=== PATIENT | female | born 1935 | race African-American/Black ===

== ENCOUNTER → 2019-04-20 | Outpatient (CLI) | payer MEDICARE, OTHER ==
--- NOTE | 2019-04-20 14:20 | US ---
EXAMINATION TYPE: US thyroid st tissue head/neck DATE OF EXAM: 04/20/2019 COMPARISON: NONE CLINICAL HISTORY: E04.1 THYROID NODULES. Known nodules, no prior here. GLAND SIZE: Right Lobe: 5.2 x 2.1 x 1.6 cm Overall Parenchyma: heterogenous Left Lobe: 5.6 x 2.8 x 2.3 cm Overall Parenchyma: heterogeneous Isthmus Thickness: 0.3 cm NODULES RIGHT: # of nodules measured on right: 1. 0.6 X 0.4 x 0.6 cm hypoechoic cystic nodule at the upper pole with well-defined margins. This n odule is wider than tall and shows no intranodular vascularity. Prior size: no prior here 2. 2.2 X 1.5 x 1.4 cm isoechoic solid nodule at the lower pole with well-defined margins. This nodu le is and shows intranodular vascularity. Prior size: no prior LEFT: # of nodules measured on left: 1. 3.4 X 1.2 x 2.1 cm isoechoic solid nodule at the mid pole with well-defined margins; present wit h microcalcifications. This nodule is wider than tall and shows intranodular vascularity. Prior size: no prior here 2. 3.4 X 2.4 x 2.5 cm echogenic solid nodule at the lower pole with poorly defined margins. This no dule is taller than wide and shows intranodular vascularity. Prior size: no prior here ISTHMUS: # of nodules measured in the isthmus: 0 Bilateral neck scanned, no evidence of lymphadenopathy. Patient states imaging and biopsies done prior at another facility. IMPRESSION: There are bilateral thyroid nodules for which fine-needle aspiration would be recommended if not perf ormed. Correlate on outside imaging for which thyroid nodules have been biopsied. Both left thyroid n odules and the larger right thyroid nodules criteria for fine-needle aspiration.
== END | disposition home or self-care (01) ==
LOC: RADUSWWP 13:06
PROVIDERS: ATTEND Otolaryngology
DX: E04.2 Nontoxic multinodular goiter (principal)
CPT/HCPCS: 76536

== ENCOUNTER → 2019-06-25 | Outpatient (CLI) | payer MEDICARE, OTHER ==
--- NOTE | 2019-06-28 13:20 | MM ---
Reason for exam: screening (asymptomatic). Last mammogram was performed 1 year ago. History: Patient is postmenopausal. Family history of breast cancer in paternal aunt and breast cancer in cousin. Physical Findings: A clinical breast exam by your physician is recommended on an annual basis and results should be correlated with mammographic findings. MG 3D Screening Mammo W/Cad Bilateral CC and MLO view(s) were taken. Prior study comparison: June 11, 2018, mammogram, performed at [facility]. May 29, 2018, mammogram, performed at [facility]. There are scattered fibroglandular densities. There is chronic nodularity in the left breast. New nodularity central posterior left CC view. ASSESSMENT: Incomplete: need additional imaging evaluation, BI-RAD 0 RECOMMENDATION: Special view mammogram of the left breast. If lesion persists on supplemental views, image directed ultrasound is recommended. [facility] will attempt to contact patient to return for supplemental views and ultrasound if indicated.
== END | disposition home or self-care (01) ==
LOC: RADMAMWWP 13:25
PROVIDERS: ATTEND Internal Medicine Geriatric Medicine
DX: Z12.31 Encounter for screening mammogram for malignant neoplasm of breast (principal)
CPT/HCPCS: 77063; 77067

== ENCOUNTER → 2019-07-08 | Outpatient (CLI) | payer MEDICARE, OTHER ==
--- NOTE | 2019-07-08 12:09 | MM ---
Reason for exam: additional evaluation requested from abnormal screening. Last mammogram was performed less than 1 month ago. History: Patient is postmenopausal. Family history of breast cancer in paternal aunt and breast cancer in cousin at age 40. Physical Findings: Nurse did not find any significant physical abnormalities on exam. MG 3D Work Up W/Cad LT Spot compression CC and LM view(s) were taken of the left breast. Prior study comparison: June 25, 2019, bilateral MG 3d screening mammo w/cad. June 11, 2018, mammogram, performed at [facility]. There are scattered fibroglandular densities. There is a 2 x 5mm mass 7cm from nipple in the central inferior left breast that persists on additional views. These results were verbally communicated with the patient and result sheet given to the patient on 07/08/19. ASSESSMENT: Incomplete: need additional imaging evaluation, BI-RAD 0 RECOMMENDATION: Ultrasound of the left breast. (inferior)
--- NOTE | 2019-07-08 12:11 | USB ---
Reason for exam: additional evaluation requested from abnormal screening. History: Patient is postmenopausal. Family history of breast cancer in paternal aunt and breast cancer in cousin at age 40. US Breast Workup Limited LT Left limited breast ultrasound including focal area of concern, retroareolar and axilla demonstrates a 0.3 x 0.5 x 0.3cm cystic lesion at 6 o'clock, corresponds to mammographic finding. 6 month follow up recommended as this is a new finding with no definitive increase through transmission. These results were verbally communicated with the patient and result sheet given to the patient on 07/08/19. ASSESSMENT: Probably benign, BI-RAD 3 RECOMMENDATION: Ultrasound of the left breast in 6 months.
== END | disposition home or self-care (01) ==
LOC: RADMAMWWP 10:12
PROVIDERS: ATTEND Internal Medicine Geriatric Medicine
DX: R92.8 Other abnormal and inconclusive findings on diagnostic imaging of breast (principal)
CPT/HCPCS: 77065; 76642; G0279; 77061

== ENCOUNTER → 2020-12-06 | Outpatient (CLI) | payer MEDICARE, OTHER ==
--- NOTE | 2020-12-07 07:03 | XR ---
EXAMINATION TYPE: XR shoulder complete LT DATE OF EXAM: 12/06/2020 CLINICAL HISTORY: pain COMPARISON: NONE TECHNIQUE: Three views of the left shoulder are obtained. FINDINGS: There is no acute fracture/dislocation evident. The acromioclavicular and glenohumeral kirsty int spaces appear within normal limits. The visualized ribs are intact and unremarkable. IMPRESSION: 1. There is no acute fracture or dislocation. ICD 10 NO FRACTURE, INITIAL EVALUATION
--- NOTE | 2020-12-07 07:04 | XR ---
EXAMINATION TYPE: XR cervical spine comp DATE OF EXAM: 12/06/2020 CLINICAL HISTORY: pain COMPARISON: NONE TECHNIQUE: Frontal, lateral, oblique, swimmers, and open mouth view of the cervical spine are obtaine d. FINDINGS: The cervical spine is visualized in its entirety from C1 thru the top of T1 level. It is s atisfactory in alignment without evidence of acute fracture or dislocation. The pre-vertebral soft t issue appears within normal limits. Mild degenerative disease and spondylosis. The C1-C2 articulation is unremarkable on the open mouth view. The oblique images are within normal limits. IMPRESSION: No acute fracture or dislocation is seen in the cervical spine.ICD 10 NO FRACTURE, INITI AL EVALUATION
== END | disposition home or self-care (01) ==
LOC: RADXRMAIN 16:52
PROVIDERS: ATTEND Nurse Practitioner Family
DX: M25.512 Pain in left shoulder (principal)
CPT/HCPCS: 72050

== ENCOUNTER 2020-12-23 18:46 | Observation (INO) | payer MEDICARE, OTHER ==
--- NOTE | 2020-12-23 19:33 | ED ---
Chest Pain HPI - General Chief Complaint: Chest Pain Stated Complaint: ELLI/chest pain Time Seen by Provider: 12/23/20 19:08 Source: patient, family Mode of arrival: wheelchair Limitations: no limitations - History of Present Illness Initial Comments: Patient is an 85-year-old female with history of CVA, hypertension, COPD, presenting to emergency Department with complaints of intermittent chest pain for the last 2-3 days. Patient states that last night it did wake her up from her sleep, lasted about a minute and then she was able to go back to sleep. She is also having a little bit of shortness of breath. She does have history of COPD, burst 2 L only at nighttime. She also has a nebulizer that she uses daily. Eyes any nausea or vomiting, no abdominal pain. She denies any fever or chills. Patient's daughter is here with her now and states she has been very anxious about Covid. She denies any heart disease. She states currently she on ly has a very small dull ache across her chest. She denies any other symptoms at this time. Upon arrival to the ER, her vital signs are stable. - Related Data Allergies Allergy/AdvReac Type Severity Reaction Status Date / Time Influenza Virus Vaccines Allergy Unknown Verified 12/23/20 18:58 Iodinated Contrast Media Allergy Unknown Verified 12/23/20 18:58 Review of Systems ROS Statement: Those systems with pertinent positive or pertinent negative responses have been documented in the HPI. ROS Other: All systems not noted in ROS Statement are negative. EKG Findings - EKG Comments: EKG Findings:: Normal sinus rhythm, inferior infarct, age undetermined, no signs of acute ischemia at this time. Ventricular rate 79, WA interval 174, QTC 442. Past Medical History Past Medical History: CVA/TIA, Hypertension History of Any Multi-Drug Resistant Organisms: None Reported Past Surgical History: Back Surgery, Section, Hysterectomy, Orthopedic Surgery Additional Past Surgical History / Comment(s): pituitary tumor. Past Psychological History: No Psychological Hx Reported Smoking Status: Former smoker Past Alcohol Use History: None Reported Past Drug Use History: None Reported General Exam - General Exam Comments Initial Comments: GENERAL: Patient is well-developed and well-nourished. Patient is nontoxic and in no acute distress. HEAD: Atraumatic, normocephalic. EYES: Pupils equal round and reactive to light, extraocular movements intact, sclera anicteric, conjunctiva are normal. Eyelids were unremarkable. ENT: TMs normal, nares patent, oropharynx clear without exudates. Moist mucous membranes. NECK: Normal range of motion, supple without lymphadenopathy or JVD. LUNGS: Unlabored respirations. Breath sounds clear to auscultation bilaterally and equal. No wheezes rales or rhonchi. HEART: Regular rate and rhythm without murmurs, rubs or gallops. ABDOMEN: Soft, nontender, normoactive bowel sounds. No guarding, no rebound. No masses appreciated. : Deferred MUSCULOSKELETAL: Normal extremities with adequate strength and normal range of motion, no pitting or edema. No clubbing or cyanosis. NEUROLOGICAL: Patient is alert and oriented x 3. Motor and sensory are also intact. Cranial nerves II through XII grossly intact. Symmetrical smile. Normal speech, normal gait. PSYCH: Normal mood, normal affect. SKIN: Warm, Dry, normal turgor, no rashes or lesions noted. Limitations: no limitations Course Vital Signs 12/23/20 12/23/20 12/23/20 18:50 21:55 23:37 Temperature 98.2 F 98.2 F Pulse Rate 81 86 Pulse Rate [ 78 Right] Respiratory 18 20 20 Rate Blood Pressure 136/73 136/69 Blood Pressure 127/68 [Right Arm] O2 Sat by Pulse 96 100 96 Oximetry Chest Pain [facility] Patient is a 85-year-old female with history hypertension, CVA, COPD, presenting with chest pains been intermittent for the last 2 days. I did wake her up from her sleep last night. Currently it is a dull ache, some mild shortness of breath. No other symptoms. Her exam is unremarkable. Her vital signs are stable upon arrival. EKG shows no acute ischemia. Lab work is stable, troponin is negative, BNP is 282. Rapid Covid is not detected. Chest x-ray shows no acute process. Given patient's complaints of chest pains, patient will be admitted for serial troponins, cardiac consult. Patient is currently on a Eliquis secondary to previous stroke. Patient accepted by Dr. Covarrubias. Case discussed with Dr. Hay. Disposition Clinical Impression: Chest pain, Dyspnea Disposition: ADMITTED IP TO THIS HOSP Condition: Stable Decision Date: 12/23/20 Decision Time: 22:16
[2020-12-23 20:39] LABS: Basophils # (A) 0.1 k/uL (0-0.2); Basophils % (A) 1 %; Eosinophils # (A) 0.5 k/uL (0-0.7); Eosinophils % (A) 5 %; HCT 41.2 % (34.0-46.0); HGB 13.2 gm/dL (11.4-16.0); Lymphocytes % (A) 20 %; MCH 27.5 pg (25.0-35.0); Monocytes # (A) 0.5 k/uL (0-1.0); Monocytes % (A) 5 %; Neutrophils # (A) 6.5 k/uL (1.3-7.7); Neutrophils % (A) 68 %; Platelet Count 328 k/uL (150-450); RBC 4.79 m/uL (3.80-5.40); RDW 14.4 % (11.5-15.5); WBC 9.6 k/uL (3.8-10.6)
[2020-12-23 20:51] LABS: Albumin 4.1 g/dL (3.5-5.0); C Reactive Protein 12.2 mg/L (<10.0); Calcium 9.2 mg/dL (8.4-10.2); Magnesium 1.9 mg/dL (1.6-2.3); Total Bilirubin 0.4 mg/dL (0.2-1.3); Total Protein 7.7 g/dL (6.3-8.2)
[2020-12-23 20:55] LABS: Partial Thromboplastin Time 25.1 sec (22.0-30.0); Prothrombin Time 10.6 sec (9.0-12.0)
--- NOTE | 2020-12-23 21:13 | XR ---
EXAMINATION TYPE: XR chest 2V DATE OF EXAM: 12/23/2020 COMPARISON: NONE HISTORY: Chest pain TECHNIQUE: 2 views FINDINGS: Heart and mediastinum are normal. Lungs are clear of infiltrate. There is no pleural effusi on. There are no hilar masses. There are chest leads. IMPRESSION: No active cardiopulmonary disease.
[2020-12-23] MEDS ORDERED: NITROGLYCERIN SL TABS 0.4 MG TAB SUBLINGUAL PRN (22:14)
[2020-12-24 06:32] LABS: Cholesterol 124 mg/dL (<200); HDL Cholesterol 53 mg/dL (40-60); LDL Cholesterol,Calculated 57 mg/dL (0-99); Triglycerides 68 mg/dL (<150)
[2020-12-24] MEDS ORDERED: ASPIRIN 325 MG TAB PO SCH (09:00)
--- NOTE | 2020-12-24 10:28 | P.CRDCN ---
History of Present Illness Consult date: 12/24/20 Requesting physician: Charlie Covarruibas Reason for Consult (text): chest pain Chief complaint: chest pain History of present illness: This is a pleasant 85-year-old -[place] female with a past medical history of hypertension, hyperlipidemia, CVA, and likely history of atrial fibrillation, anticoagulated on Eliquis. She follows with Dr. Leal in the office and last saw him over a year ago. Presented to the emergency department with complaints of chest discomfort as occurring along her bra line and has been occurring intermittently and can last up to a couple hours at a time sometimes it is improved with belching. She denies any clear-cut aggravating factors and no associated symptoms. She does have some dyspnea on exertion that may be somewhat worse compared to her baseline. Chest x-ray on admission showed no active cardiopulmonary disease. EKG on admission showed sinus rhythm with evidence of possible prior inferior infarct that is not reflected on EKG done this morning. Laboratory values show normal CBC, sodium 142, potassium 4.0, BUN 18 and creatinine 1.28, alkaline phosphatase 151, NT proBNP 282 and troponin less than 0.0123. Lipids are well controlled. She is afebrile and vital signs are stable. Current home medications include clonazepam, carvedilol, spir onolactone, Rivastigmine, Protonix, Singulair, Antivert, lactulose, Advair, Lipitor, aspirin 81 mg daily, albuterol and Eliquis 2.5 mg by mouth twice a day. Upon examination patient is resting in bed. She complains of significant low back pain. She does have a history of back surgery several years ago and feels that her chronic issues were exacerbated by the bed in the emergency department. She is very hard of hearing. She denies any current complaints of chest discomfort. At that time her breathing is stable. She has no complaints of orthopnea or PND, edema. She has no current complaints of dizziness or lightheadedness, palpitations. Past Medical History Past Medical History: Asthma, COPD, CVA/TIA, Diabetes Mellitus, GERD/Reflux, Hypertension Additional Past Medical History / Comment(s): glaucoma History of Any Multi-Drug Resistant Organisms: None Reported Past Surgical History: Back Surgery, Section, Hysterectomy, Orthopedic Surgery Additional Past Surgical History / Comment(s): pituitary tumor removed, lumbar laminectomy Past Anesthesia/Blood Transfusion Reactions: No Reported Reaction Past Psychological History: No Psychological Hx Reported Smoking Status: Former smoker Past Alcohol Use History: None Reported Past Drug Use History: None Reported - Past Family History Father History Unknown: Yes Mother History Unknown: Yes Medications and Allergies Home Medications Medication Instructions Recorded Confirmed Type Albuterol Sulfate [Proair Hfa] 2 puff INHALATION RT-QID PRN 12/23/20 12/24/20 History Apixaban [Eliquis] 2.5 mg PO BID 12/23/20 12/24/20 History Aspirin [Adult Low Dose Aspirin EC] 1 tab PO DAILY 12/23/20 12/24/20 History Atorvastatin [Lipitor] 20 mg PO HS 12/23/20 12/24/20 History Brimonidine Tartrate [Alphagan P 1 drops BOTH EYES Q8H 12/23/20 12/24/20 History 0.1% Ophth Soln] Dorzolamide-Timol 2.23%/0.68% 1 drop RIGHT EYE BID 12/23/20 12/24/20 History [Cosopt] Fluticasone/Salmeterol [Advair 1 puff INHALATION RT-BID 12/23/20 12/24/20 History 500-50 Diskus] Lactulose 10 gm PO DAILY PRN 12/23/20 12/24/20 History Latanoprost Ophth [Xalatan 0.005%] 1 drops BOTH EYES HS 12/23/20 12/24/20 History Meclizine [Antivert] 25 mg PO TID PRN 12/23/20 12/24/20 History Montelukast [Singulair] 10 mg PO HS 12/23/20 12/24/20 History Pantoprazole [Protonix] 1 tab PO DAILY 12/23/20 12/24/20 History carvediloL [Coreg] 3.125 mg PO BID 12/23/20 12/24/20 History Rivastigmine 3mg 3 mg PO BID 12/24/20 12/24/20 History Spironolactone [Aldactone] 25 mg PO DAILY 12/24/20 12/24/20 History clonazePAM [KlonoPIN] 0.5 mg PO BID PRN 12/24/20 12/24/20 History Allergies Allergy/AdvReac Type Severity Reaction Status Date / Time Influenza Virus Vaccines Allergy Unknown Verified 12/24/20 08:50 Iodinated Contrast Media Allergy Unknown Verified 12/24/20 08:50 Physical Exam Vitals: Vital Signs Temp Pulse Pulse Resp BP BP Pulse Ox 12/24/20 08:07 96 12/24/20 07:00 97.6 F 78 17 126/86 96 12/24/20 05:19 98.1 F 79 20 127/70 96 12/23/20 23:37 98.2 F 78 20 127/68 96 12/23/20 21:55 86 20 136/69 100 12/23/20 18:50 98.2 F 81 18 136/73 96 Intake and Output 12/23/20 12/24/20 12/24/20 21:59 06:59 14:59 Intake Total 300 Balance 300 Intake: Oral 300 Other: Voiding Method # Voids Weight PHYSICAL EXAMINATION: This is a 85-year-old female in mild to moderate distress at the time of my examination secondary to low back pain. VITAL SIGNS: Blood pressure 126/86, heart rate 78, respirations 20, temp 97.6F. Patient is 96 % on room air. HEENT: Head is atraumatic, normocephalic. Pupils are equal, round. Sclerae anicteric. Conjunctivae are clear. Mucous membranes of the mouth are moist. Neck is supple. There is no elevated jugular venous pressure. No carotid bruit is heard. CHEST EXAMINATION: Clear to auscultation bilaterally. No wheezes rales or rhonchi. Respirations even and nonlabored. HEART EXAMINATION: Heart regular, positive S1 and S2. No S3. No S4. No clicks, rubs or murmurs. ABDOMEN: Soft, obese, nontender. Bowel sounds are heard. No organomegaly noted. EXTREMITIES: 2+ peripheral pulses with no evidence of peripheral edema and no calf tenderness noted. NEUROLOGIC EXAMINATION: Patient is awake, alert and oriented x3. Results 12/23/20 20:29 12/23/20 20:29 Cardiac Enzymes 12/23/20 12/23/20 12/23/20 Range/Units 20:29 20:29 22:51 AST 25 (14-36) U/L Troponin I <0.012 <0.012 (0.000-0.034) ng/mL 12/24/20 Range/Units 03:00 AST (14-36) U/L Troponin I <0.012 (0.000-0.034) ng/mL Coagulation 12/23/20 Range/Units 20:29 PT 10.6 (9.0-12.0) sec APTT 25.1 (22.0-30.0) sec Lipids 12/23/20 Range/Units 20:29 Triglycerides 68 (<150) mg/dL Cholesterol 124 (<200) mg/dL HDL Cholesterol 53 (40-60) mg/dL CBC 12/23/20 Range/Units 20:29 WBC 9.6 (3.8-10.6) k/uL RBC 4.79 (3.80-5.40) m/uL Hgb 13.2 (11.4-16.0) gm/dL Hct 41.2 (34.0-46.0) % Plt Count 328 (150-450) k/uL Comprehensive Metabolic Panel 12/23/20 Range/Units 20:29 Sodium 142 (137-145) mmol/L Potassium 4.0 (3.5-5.1) mmol/L Chloride 107 (98-107) mmol/L Carbon Dioxide 24 (22-30) mmol/L BUN 18 H (7-17) mg/dL Creatinine 1.28 H (0.52-1.04) mg/dL Glucose 96 (74-99) mg/dL Calcium 9.2 (8.4-10.2) mg/dL AST 25 (14-36) U/L ALT 23 (4-34) U/L Alkaline Phosphatase 151 H (38-126) U/L Total Protein 7.7 (6.3-8.2) g/dL Albumin 4.1 (3.5-5.0) g/dL Current Medications Generic Name Dose Route Start Last Admin Trade Name Freq PRN Reason Stop Dose Admin Aspirin 325 mg 12/24/20 09:00 12/24/20 07:48 Aspirin 325 Mg Tab PO 325 mg DAILY PAM Administration Nitroglycerin 0.4 mg 12/23/20 22:14 Nitroglycerin Sl Tabs 0.4 Mg Tab SUBLINGUAL Q5M PRN Chest Pain Intake and Output 12/23/20 12/24/20 12/24/20 21:59 06:59 14:59 Intake Total 300 Balance 300 Intake: Oral 300 Other: Voiding Method # Voids Weight 12/23/20 20:29 12/23/20 20:29 Assessment and Plan Assessment: #1 symptoms of chest discomfort, and acute coronary event has been ruled out, symptoms are atypical, troponins negative 3 #2 hypertension #3 hyperlipidemia #4 paroxysmal atrial fibrillation #5 history of CVA #6 low back pain Plan: From secure software assessor perspective we will keep the patient overnight and obtain 2-D echo with Doppler study to assess cardiac structure and function. If there are no significant abnormalities on the echocardiogram we will likely weight and complete stress test as an outpatient due to patient's significant low back p ain. We will continue to follow the patient provide further recommendations accordingly. [employer] note has been reviewed, I agree with a documented findings and plan of care. Patient was seen and examined.
[2020-12-24] MEDS ORDERED: ALBUTEROL NEBULIZED 2.5 MG/3 ML INHALATION PRN (10:59)
[2020-12-24] MEDS ORDERED: MECLIZINE 25 MG TAB PO PRN (10:59)
[2020-12-24] MEDS ORDERED: clonazePAM 0.5 MG TAB PO PRN (10:59)
[2020-12-24] MEDS ORDERED: LACTULOSE 20 GM/30 ML CUP PO PRN (10:59)
[2020-12-24] MEDS: BRIMONIDINE TARTRATE 0.2% DROPS 5 ML BTL BOTH EYES SCH ×2 (13:59→22:51)
[2020-12-24] MEDS ORDERED: ACETAMINOPHEN TAB 325 MG TAB PO PRN (17:19)
--- NOTE | 2020-12-24 17:30 | P.HPIM ---
History of Present Illness H&P Date: 12/24/20 86 years old -[place] female with past medical history of asthma, COPD, history of CVA, diabetes, GERD, hypertension, history of P2 treated Mel, lumbar laminectomy, history of atrial fibrillation on the left basal sees Dr. Leal and Dr. Salgado presents in with chest discomfort involving the lower part of her chest bilateral for the past few days with worsening of symptoms since yesterday. Pain is associated with belching a lot of acid reflux. Patient also endorses some shortness of breath on exertion which is worse compared to her baseline. Also complains of low back pain and had history of back surgery several years ago but got worse since she is come to the ER. Chest x-ray was n egative for any acute etiology EKG on admission did show sinus rhythm with a possible prior inferior and infarct. Vitals this morning suggests a temp of 98 pulse 80 respiratory rate 18 blood pressure 120/77 saturating at 97% on room air troponins and she has been negative patient's LDL is 57 BUN 18 creatinine 1.28. Alkaline phosphatase 151 proBNP 282. Review of Systems Constitutional: Denies chills, Denies fever, endorses RG, Denies poor appetite, Denies weakness, Denies weight loss Eyes: denies decreased vision, denies diplopia, denies discharge, denies pain Ears: Endorses significant decreased hearing Ears, nose, mouth and throat: Denies dental pain, Denies headache, Denies nasal discharge, Denies nose pain Cardiovascular: Endorses chest pain, endorses decreased exercise tolerance, endorses edema, Denies high blood pressure, Denies irregular heart beat, Denies palpitations, Denies paroxysmal nocturnal dyspnea, Denies rapid heart beat, endorses shortness of breath Respiratory: Denies congestion, Denies cough, Denies cough with sputum, Denies dyspnea, Denies home oxygen, Denies wheezing Gastrointestinal: Denies abdominal pain, Denies change in bowel habits, Denies coffee ground emesis, Denies early satiety, Denies excessive gas, Denies heartburn, Denies hematemesis, Denies hematochezia, Denies loss of appetite, Denies nausea, Denies vomiting Genitourinary: Denies dysuria, Denies flank pain, Denies kidney stones, Denies menorrhagia, Denies urgency, Denies urinary frequency Musculoskeletal: Denies gait dysfunction, Denies limitation of motion, Denies morning stiffness, Denies muscle cramps endorses low back pain Integumentary: Denies rash, Denies wounds, Denies brittle nails, Denies change in hair/nails, Denies darkening of skin Neurological: Denies balance difficulties, Denies change in speech, Denies double vision, Denies gait dysfunction, Denies loss of vision, Denies motor disturbance, Denies numbness, Denies paralysis, Denies paresthesias, Denies seizures Psychiatric: Denies anxiety, Denies depression Endocrine: Denies excessive sweating, Denies excessive thirst, Denies high blood sugars, Denies palpitations Hematologic/Lymphatic: Denies easy bruising, Denies lymphadenopathy Past Medical History Past Medical History: Asthma, COPD, CVA/TIA, Diabetes Mellitus, GERD/Reflux, Hypertension Additional Past Medical History / Comment(s): glaucoma History of Any Multi-Drug Resistant Organisms: None Reported Past Surgical History: Back Surgery, Section, Hysterectomy, Orthopedic Surgery Additional Past Surgical History / Comment(s): pituitary tumor removed, lumbar laminectomy Past Anesthesia/Blood Transfusion Reactions: No Reported Reaction Past Psychological History: No Psychological Hx Reported Smoking Status: Former smoker Past Alcohol Use History: None Reported Past Drug Use History: None Reported - Past Family History Father History Unknown: Yes Mother History Unknown: Yes Medications and Allergies Home Medications Medication Instructions Recorded Confirmed Type Albuterol Sulfate [Proair Hfa] 2 puff INHALATION RT-QID PRN 12/23/20 12/24/20 History Apixaban [Eliquis] 2.5 mg PO BID 12/23/20 12/24/20 History Aspirin [Adult Low Dose Aspirin EC] 1 tab PO DAILY 12/23/20 12/24/20 History Atorvastatin [Lipitor] 20 mg PO HS 12/23/20 12/24/20 History Brimonidine Tartrate [Alphagan P 1 drops BOTH EYES Q8H 12/23/20 12/24/20 History 0.1% Ophth Soln] Dorzolamide-Timol 2.23%/0.68% 1 drop RIGHT EYE BID 12/23/20 12/24/20 History [Cosopt] Fluticasone/Salmeterol [Advair 1 puff INHALATION RT-BID 12/23/20 12/24/20 Histor y 500-50 Diskus] Lactulose 10 gm PO DAILY PRN 12/23/20 12/24/20 History Latanoprost Ophth [Xalatan 0.005%] 1 drops BOTH EYES HS 12/23/20 12/24/20 History Meclizine [Antivert] 25 mg PO TID PRN 12/23/20 12/24/20 History Montelukast [Singulair] 10 mg PO HS 12/23/20 12/24/20 History Pantoprazole [Protonix] 1 tab PO DAILY 12/23/20 12/24/20 History carvediloL [Coreg] 3.125 mg PO BID 12/23/20 12/24/20 History Rivastigmine 3mg 3 mg PO BID 12/24/20 12/24/20 History Spironolactone [Aldactone] 25 mg PO DAILY 12/24/20 12/24/20 History clonazePAM [KlonoPIN] 0.5 mg PO BID PRN 12/24/20 12/24/20 History Allergies Allergy/AdvReac Type Severity Reaction Status Date / Time Influenza Virus Vaccines Allergy Unknown Verified 12/24/20 08:50 Iodinated Contrast Media Allergy Unknown Verified 12/24/20 08:50 Physical Exam Vitals: Vital Signs Temp Pulse Pulse Resp BP BP Pulse Ox 12/24/20 08:07 96 12/24/20 08:00 16 12/24/20 07:00 97.6 F 78 17 126/86 96 12/24/20 05:19 98.1 F 79 20 127/70 96 12/23/20 23:37 98.2 F 78 20 127/68 96 12/23/20 21:55 86 20 136/69 100 12/23/20 18:50 98.2 F 81 18 136/73 96 Intake and Output 12/23/20 12/24/20 12/24/20 21:59 06:59 14:59 Intake Total 500 Balance 500 Intake: Oral 500 Other: Voiding Method # Voids 1 Weight - Constitutional General appearance: 85-year-old cooperative, mild acute distress due to low back pain, obese - EENT Eyes: anicteric sclerae, PERRLA, normal appearance ENT: hearing grossly normal - Neck Neck: no lymphadenopathy, normal ROM, no other, no rigidity, no stridor, no thyromegaly no JVP - Respiratory Respiratory: bilateral: CTA, negative: diminished, dullness, rales, rhonchi - Cardiovascular Rhythm: regular Heart sounds: normal: S1, S2 Abnormal Heart Sounds: no systolic murmur, no diastolic murmur, no rub, no S3 Gallop, no S4 Gallop, no click, no other - Gastrointestinal General gastrointestinal: normal bowel sounds, soft - Integumentary Integumentary: no rash - Neurologic Neurologic: CNII-XII intact - Musculoskeletal Musculoskeletal: gait normal, strength equal bilaterally - Psychiatric Psychiatric: A&O x's 3, appropriate affect Results CBC & Chem 7: 12/23/20 20:29 12/23/20 20:29 Labs: Abnormal Lab Results - Last 24 Hours (Table) 12/23/20 Range/Units 20:29 BUN 18 H (7-17) mg/dL Creatinine 1.28 H (0.52-1.04) mg/dL Alkaline Phosphatase 151 H (38-126) U/L C-Reactive Protein 12.2 H (<10.0) mg/L Thrombosis Risk Factor Assmnt - DVT/VTE Prophylaxis DVT/VTE Prophylaxis: Pharmacologic Prophylaxis ordered - Choose All That Apply Any of the Below Risk Factors Present?: Yes Each Factor Represents 1 point: Abnormal pulmonary function (COPD), Obesity (BMI >25) Other Risk Factors: Yes Each Risk Factor Represents 3 Points: Age 75 years or older Other congenital or acquired thrombophilia - If yes, enter type in comment: No Thrombosis Risk Factor Assessment Total Risk Factor Score: 5 Thrombosis Risk Factor Assessment Level: High Risk Assessment and Plan Plan: #1 acute atypical chest pain. His is ruled out troponin 3 negative. Echocardiogram to be obtained in the morning with possible stress test as outpatient. Pantoprazole 4 0 po twice a day as patient chest pain likely appears to be GI in origin #2 acute shortness of breath on exertion. Chest x-ray negative for acute etiology. ProBNP normal. Echo ordered #3 history of CVA continue patient on aspirin 81 mg by mouth daily continue Lipitor 20 mg daily at bedtime #4 history of paroxysmal atrial fibrillation on eliquis and Coreg 3.125 twice a day #5 type 2 diabetes continue insulin sliding scale diet controlled #6 history of dementia continue donepezil 10 mg daily #7 history of asthma/COPD continue Symbicort twice a day continue DuoNeb as needed for shortness of breath #8 hypertension continue spiderlike prolactin 25 mg daily #9 history of glaucoma continue dorzolamide and brimonidine continue latanoprost eyedrops #10 constipation continue lactulose 10 mg daily as needed #11 acute back pain with history of lumbar laminectomy. Lidocaine patch ordered. Continue on Tylenol as needed for pain #12 DVT prophylaxis with eliquis #13 CODE STATUS full code
[2020-12-24] MEDS: PANTOPRAZOLE 40 MG TABLET PO SCH (17:39)
[2020-12-24] MEDS: carvediloL 3.125 MG TAB PO SCH (17:39)
[2020-12-24] MEDS: LIDOCAINE 5% PATCH TOPICAL SCH (17:57)
[2020-12-24] MEDS ORDERED: ATORVASTATIN 20 MG TAB PO SCH (21:00)
[2020-12-24] MEDS ORDERED: MONTELUKAST 10 MG TAB PO SCH (21:00)
[2020-12-24] MEDS ORDERED: LATANOPROST 0.005% OPHTH DROPS 2.5 ML BTL BOTH EYES SCH (21:00)
[2020-12-24] MEDS: SYMBICORT 160-4.5 MCG INHALER INHALATION SCH (21:20)
[2020-12-24] MEDS: DORZOLAMIDE-TIMOLOL 2.23%/0.68 10ML BTL RIGHT EYE SCH (22:50)
[2020-12-24] MEDS: APIXABAN 2.5 MG TABLET PO SCH (22:50)
[2020-12-25] MEDS: BRIMONIDINE TARTRATE 0.2% DROPS 5 ML BTL BOTH EYES SCH ×2 (05:56→11:16)
[2020-12-25] MEDS ORDERED: PANTOPRAZOLE 40 MG TABLET PO SCH (07:30)
[2020-12-25] MEDS: LIDOCAINE 5% PATCH TOPICAL SCH (08:16)
[2020-12-25] MEDS: PANTOPRAZOLE 40 MG TABLET PO SCH ×2 (08:16→17:05)
[2020-12-25] MEDS: APIXABAN 2.5 MG TABLET PO SCH (08:16)
[2020-12-25] MEDS: carvediloL 3.125 MG TAB PO SCH ×2 (08:16→17:05)
[2020-12-25] MEDS: DORZOLAMIDE-TIMOLOL 2.23%/0.68 10ML BTL RIGHT EYE SCH (08:18)
[2020-12-25] MEDS ORDERED: SPIRONOLACTONE 25 MG TAB PO SCH (09:00)
[2020-12-25] MEDS ORDERED: DONEPEZIL 10 MG TAB PO SCH (09:00)
[2020-12-25] MEDS ORDERED: ASPIRIN 81 MG PO SCH (09:00)
[2020-12-25] MEDS: SYMBICORT 160-4.5 MCG INHALER INHALATION SCH (10:46)
--- NOTE | 2020-12-25 11:13 | ECHOF ---
Referral Reason:chest pain MEASUREMENTS -------- HEIGHT: 165.1 cm WEIGHT: 86.2 kg BP: 145/73 RVIDd: 3.4 cm (< 3.3) IVSd: 1.3 cm (0.6 - 1.1) LVIDd: 3.2 cm (3.9 - 5.3) LVPWd: 1.5 cm (0.6 - 1.1) IVSs: 1.9 cm LVIDs: 2.3 cm LVPWs: 1.6 cm Ao Diam: 2.9 cm (2.0 - 3.7) AV Cusp: 1.9 cm (1.5 - 2.6) LA Diam: 2.8 cm (2.7 - 3.8) MV EXCURSION: 8.677 mm (> 18.000) MV EF SLOPE: 62 mm/s (70 - 150) EPSS: 0.4 cm MV E Brodie: 0.55 m/s MV DecT: 245 ms MV A Brodie: 0.83 m/s MV E/A Ratio: 0.65 RAP: 5.00 mmHg RVSP: 9.86 mmHg FINDINGS -------- This was a technically difficult study with suboptimal views. The left ventricular size is normal. There is mild concentric left ventricular hypertrophy. Overa ll left ventricular systolic function is normal with, an EF between 55 - 60 %. The right ventricle is mildly enlarged. The left atrial size is normal. The right atrial size is normal. Lumason used The aortic valve is trileaflet and appears structurally normal. The mitral valve is normal. There is trace mitral regurgitation. The tricuspid valve appears structurally normal. Trace tricuspid regurgitation present. Right atilio tricular systolic pressure is normal at < 35 mmHg. The pulmonic valve was not well visualized. The aortic root size is normal. IVC Not well visulized. There is no pericardial effusion. CONCLUSIONS -------- 1. The left ventricular size is normal. 2. There is mild concentric left ventricular hypertrophy. 3. Overall left ventricular systolic function is normal with, an EF between 55 - 60 %. 4. The right ventricle is mildly enlarged. 5. There is trace mitral regurgitation. 6. Trace tricuspid regurgitation present. 7. There is no pericardial effusion. HEARING AID TECHNICIAN: Lynda Snow RDCS
--- NOTE | 2020-12-25 11:52 | P.DS ---
Providers Date of admission: 12/23/20 22:48 Expected date of discharge: 12/25/20 Attending physician: Charlie Covarrubias MD Consults: 12/23/20 22:14 Consult Physician Urgent Consulting Provider: [facility] Consult Reason/Comments: chest pain Do you want consulting provider notified?: Yes, Notify in am Primary care physician: Dani Salgado [place] [facility] Course: 86 years old -[place] female with past medical history of asthma, COPD, history of CVA, diabetes, GERD, hypertension, history of P2 treated Mel, lumbar laminectomy, history of atrial fibrillation on the left basal sees Dr. Leal and Dr. Salgado presents in with chest discomfort involving the lower part of her chest bilateral for the past few days with worsening of symptoms since yesterday. Pain is associated with belching a lot of acid reflux. Patient also endorses some shortness of breath on exertion which is worse compared to her baseline. Also complains of low back pain and had history of back surgery several years ago but got worse since she is come to the ER. Chest x-ray was negative for any acute etiology EKG on admission did show sinus rhythm with a possible prior inferior and infarct. Vitals this morning suggests a temp of 98 pulse 80 respiratory rate 18 blood pressure 120/77 saturating at 97% on room air troponins and she has been negative patient's LDL is 57 BUN 18 creatinine 1.28. Alkaline phosphatase 151 proBNP 282. 3: DISCHARGE DIAGNOSES DISCHARGE PLAN Home Patient Condition at Discharge: Good Plan - Discharge Summary New Discharge Prescriptions: Continue Lactulose 10 gm PO DAILY PRN PRN Reason: Constipation Apixaban [Eliquis] 2.5 mg PO BID carvediloL [Coreg] 3.125 mg PO BID Aspirin [Adult Low Dose Aspirin EC] 1 tab PO DAILY Pantoprazole [Protonix] 1 tab PO DAILY Meclizine [Antivert] 25 mg PO TID PRN PRN Reason: Vertigo Fluticasone/Salmeterol [Advair 500-50 Diskus] 1 puff INHALATION RT-BID Albuterol Sulfate [Proair Hfa] 2 puff INHALATION RT-QID PRN PRN Reason: Shortness Of Breath Montelukast [Singulair] 10 mg PO HS Atorvastatin [Lipitor] 20 mg PO HS Brimonidine Tartrate [Alphagan P 0.1% Ophth Soln] 1 drops BOTH EYES Q8H Latanoprost Ophth [Xalatan 0.005%] 1 drops BOTH EYES HS Dorzolamide-Timol 2.23%/0.68% [Cosopt] 1 drop RIGHT EYE BID Spironolactone [Aldactone] 25 mg PO DAILY clonazePAM [KlonoPIN] 0.5 mg PO BID PRN PRN Reason: Anxiety Rivastigmine 3mg 3 mg PO BID Discharge Medication List Albuterol Sulfate [Proair Hfa] 2 puff INHALATION RT-QID PRN 12/23/20 [History] Apixaban [Eliquis] 2.5 mg PO BID 12/23/20 [History] Aspirin [Adult Low Dose Aspirin EC] 1 tab PO DAILY 12/23/20 [History] Atorvastatin [Lipitor] 20 mg PO HS 12/23/20 [History] Brimonidine Tartrate [Alphagan P 0.1% Ophth Soln] 1 drops BOTH EYES Q8H 12/23/20 [History] Dorzolamide-Timol 2.23%/0.68% [Cosopt] 1 drop RIGHT EYE BID 12/23/20 [History] Fluticasone/Salmeterol [Advair 500-50 Diskus] 1 puff INHALATION RT-BID 12/23/20 [History] Lactulose 10 gm PO DAILY PRN 12/23/20 [History] Latanoprost Ophth [Xalatan 0.005%] 1 drops BOTH EYES HS 12/23/20 [History] Meclizine [Antivert] 25 mg PO TID PRN 12/23/20 [History] Montelukast [Singulair] 10 mg PO HS 12/23/20 [History] Pantoprazole [Protonix] 1 tab PO DAILY 12/23/20 [History] carvediloL [Coreg] 3.125 mg PO BID 12/23/20 [History] Rivastigmine 3mg 3 mg PO BID 12/24/20 [History] Spironolactone [Aldactone] 25 mg PO DAILY 12/24/20 [History] clonazePAM [KlonoPIN] 0.5 mg PO BID PRN 12/24/20 [History] Follow up Appointment(s)/Referral(s): Dani Salgado MD [Primary Care Provider] - 1 Week Tumma,Eliud R, MD [STAFF PHYSICIAN] - 1 Week Discharge Disposition: HOME SELF-CARE
--- NOTE | 2020-12-25 12:10 | P.PN ---
Subjective This is a pleasant 85-year-old -[place] female with a past medical history of hypertension, hyperlipidemia, CVA, and likely history of atrial fibrillation, anticoagulated on Eliquis. She follows with Dr. Leal in the office and last saw him over a year ago. Presented to the emergency department with complaints of chest discomfort as occurring along her bra line and has been occurring intermittently and can last up to a couple hours at a time sometimes it is improved with belching. She denies any clear-cut aggravating factors and no associated symptoms. She does have some dyspnea on exertion that may be somewhat worse compared to her baseline. Chest x-ray on admission showed no active cardiopulmonary disease. EKG on admission sinus rhythm with inverted T waves in lateral leads. EKG in the morning sinus rhythm with no significant ST-T wave abnormalities. Laboratory values show normal CBC, sodium 142, potassium 4.0, BUN 18 and creatinine 1.28, alkaline phosphatase 151, NT proBNP 282 and troponin less than 0.0123. Lipids are well controlled. She is afebrile and vital signs are stable. Current home medications include clonazepam, carvedilol, spironolactone, Rivastigmine, Protonix, Singulair, Antivert, lactulo se, Advair, Lipitor, aspirin 81 mg daily, albuterol and Eliquis 2.5 mg by mouth twice a day. She complains of significant low back pain. She does have a history of back surgery several years ago and feels that her chronic issues were exacerbated by the bed in the emergency department. She is very hard of hearing. 12/25/20: Patient is seen and examined at bedside, alert and oriented x 3. no acute distress. She denies any current complaints of chest discomfort. At that time her breathing is stable. She has no current complaints of dizziness or lightheadedness, palpitations. No further laboratory data today. Vital signs blood pressure 145/73, heart rate 79, 99% on 2L nasal cannula, afebrile Telemetry reviewed patient in sinus mechanism. Current cardiac medications include Coreg 3.125 twice a day, aspirin electron 25 mg daily, atorvastatin 20 mg,aspirin 81 mg daily, Eliquis 2.5mg BID. Echo 12/25- EF 55-60%, RV is mildly enlarged, trace MR, trace TR PHYSICAL EXAMINATION CONSTITUTIONAL: No apparent distress. HEENT: Head is normocephalic. Pupils are equal, round. Sclerae anicteric. Mucous membranes of the mouth are moist. No JVD. No carotid bruit. CHEST EXAMINATION: Lungs are clear to auscultation. No chest wall tenderness is noted on palpation or with deep breathing. HEART EXAMINATION: Regular rate and rhythm. S1, S2 heard. No murmurs, gallops or rub. ABDOMEN: Soft, nontender. Positive bowel sounds. EXTREMITIES: 2+ peripheral pulses, no lower extremity edema and no calf tenderness. NEUROLOGIC EXAMINATION: Patient is awake, alert and oriented x3. ASSESSMENT Chest pain- atypical. Acute coronary event ruled out Hypertension Hyperlipidemia CVA Paroxysmal Atrial Fibrillation- on Eliquis PLAN -From cardiology standpoint, ok to discharge patient. Patient can complete stress test as an outpatient due to patient's significant low back pain. -Patient can follow-up patient with Dr. Wong as scheduled Nurse Practitioner note has been reviewed, I agree with a documented findings and plan of care. Patient was seen and examined. Objective - Vital Signs Vital signs: Vital Signs Temp 97.9 F 12/25/20 07:00 Pulse 79 12/25/20 07:00 Resp 18 12/25/20 08:00 BP 145/73 12/25/20 07:00 Pulse Ox 99 12/25/20 07:00 Intake & Output 12/24/20 12/25/20 12/25/20 18:59 06:59 18:59 Intake Total 900 Balance 900 Intake: Oral 900 Other: # Voids 1 0 # Bowel Movements 0 - Labs CBC & Chem 7: 12/23/20 20:29 12/23/20 20:29
[2020-12-25] MEDS ORDERED: BACLOFEN 10 MG TAB PO PRN (13:41)
[2020-12-25] MEDS ORDERED: Acetaminophen-Codeine 300-30mg TAB PO PRN (14:25)
[2020-12-25 15:26] VITALS: BP 130/79; PULSE 82; RESP 16; TEMP 97.8
--- NOTE | 2020-12-25 16:07 | XR ---
EXAMINATION TYPE: XR lumbar spine 2 or 3V DATE OF EXAM: 12/25/2020 Comparison: None Clinical History: 85-year-old female lumbar back pain Findings: Exam is limited due to the degree of osteopenia and underpenetration. Mild to moderate degenerative d isc disease and endplate spondylosis lower lumbar spine. Hypertrophic facet arthropathy. Vertebral edilberto dy heights are preserved and alignment is maintained. Impression: Mild/moderate degenerative disc disease lower lumbar spine. Hypertrophic facet arthropathy. No verteb ral compression collapse or malalignment.
[2020-12-25] MEDS ORDERED: dexAMETHasone 4 MG TAB PO SCH (21:00)
== END 2020-12-25 17:30 | disposition home or self-care (01) ==
LOC: EC 18:46 → 6NMEDSUR 22:48
PROVIDERS: ADMIT Internal Medicine; ATTEND Internal Medicine
DX: R07.89 Other chest pain (principal); J44.9 Chronic obstructive pulmonary disease, unspecified; I48.0 Paroxysmal atrial fibrillation; I10 Essential (primary) hypertension; F03.90 Unspecified dementia, unspecified severity, without behavioral disturbance, psychotic disturbance, mood disturbance, and anxiety; E11.9 Type 2 diabetes mellitus without complications; H91.90 Unspecified hearing loss, unspecified ear; E78.5 Hyperlipidemia, unspecified; K21.9 Gastro-esophageal reflux disease without esophagitis; M51.36 Other intervertebral disc degeneration, lumbar region; H40.9 Unspecified glaucoma; K59.00 Constipation, unspecified; Z20.822 Contact with and (suspected) exposure to COVID-19; E66.9 Obesity, unspecified; Z68.31 Body mass index [BMI] 31.0-31.9, adult; Z79.01 Long term (current) use of anticoagulants; Z79.82 Long term (current) use of aspirin; Z79.51 Long term (current) use of inhaled steroids; Z79.899 Other long term (current) drug therapy; Z88.7 Allergy status to serum and vaccine; Z91.041 Radiographic dye allergy status; Z86.73 Personal history of transient ischemic attack (TIA), and cerebral infarction without residual deficits; Z90.710 Acquired absence of both cervix and uterus; Z98.890 Other specified postprocedural states; Z87.891 Personal history of nicotine dependence; Z86.011 Personal history of benign neoplasm of the brain
CPT/HCPCS: 93005 ×2; 99285; 36415; 94640 ×2; 94760; 83880; 80061; 80053; 83735; 84484 ×2; 85025; 85610; 85730; 86140; 87635; 72100; 71046; G0378 ×3; C8929; Q9950; 93306

== ENCOUNTER → 2022-05-15 | Outpatient (CLI) | payer MEDICARE, OTHER ==
--- NOTE | 2022-05-16 04:41 | MR ---
EXAMINATION TYPE: MR brain wo con DATE OF EXAM: 05/15/2022 COMPARISON: None HISTORY: Left eye trouble. Benign neoplasm of pituitary gland, partially removed. Multiplanar multiecho imaging of the brain without contrast. There is cerebral cortical atrophy. There is no mass effect or midline shift. No sign of intracranial hemorrhage. Diffusion images show no evidence of an acute infarct. On the T2 and FLAIR images there is some mild patchy increased signal in the periventricular white matter. There is a larger area in t he right parietal lobe jordan-white matter junction that measures 14 mm. This also involves the cerebra l cortex. The brainstem is intact. No evidence of orbital mass. There is some mucosal thickening in the maxillary and sphenoid sinus. No evidence of a sellar mass. IMPRESSION: Cerebral atrophy. There is some mild white matter changes or could relate to microvascular ischemia. There is a jordan-white matter irregular area of increased signal in the right parietal lobe that could be subacute or old cortical infarct.
== END | disposition home or self-care (01) ==
LOC: RADMRIMAIN 17:59
PROVIDERS: ATTEND Ophthalmology
DX: D35.2 Benign neoplasm of pituitary gland (principal); G31.9 Degenerative disease of nervous system, unspecified
CPT/HCPCS: 70551

== ENCOUNTER → 2022-08-15 | Outpatient (CLI) | payer MEDICARE, OTHER ==
--- NOTE | 2022-08-16 12:49 | MR ---
EXAMINATION TYPE: MR lumbar spine wo con DATE OF EXAM: 08/15/2022 6:44 PM COMPARISON: None. CLINICAL INDICATION:Female, 87 years old with history of M43.16 SPONDYLOLISTHESIS, LUMBAR REGION; TECHNIQUE: Multi planar, multi sequence imaging was performed utilizing: T1-weighted, T2-weighted, a nd turbo inversion recovery imaging of the lumbar spine. IV Contrast: None FINDINGS: Alignment: The lumbar vertebral bodies have preserved heights with straightening of the alignment. Cord: The conus medullaris and the distal spinal cord appear unremarkable with regards to their signa l intensity and morphology. Bones/Discs: Multilevel disc degeneration changes are seen throughout the spine extending from L1 thr ough L5. An worse at L3-L4 and L4-L5. Bony edema seen within the L4 vertebral body. Multilevel disc desiccation is present. L1-L2: Disc bulge and facet joint arthropathy without significant spinal canal stenosis and mild left neural foraminal stenosis the right neural foramen is patent. L2-L3: Disc bulge and facet joint arthropathy with moderate spinal canal stenosis and mild to moderat e bilateral neural foraminal stenosis. L3-L4: Disc bulge and facet joint arthropathy with severe spinal canal stenosis and moderate to sever e bilateral neural foraminal stenosis. L4-L5: Eccentric right disc bulge and facet joint arthropathy with moderate to severe spinal canal st enosis and moderate to severe right and moderate left neural foraminal stenosis. L5-S1: Disc bulge and facet joint arthropathy result in no significant spinal canal stenosis there is moderate bilateral neural foraminal stenosis. Other findings: Multiple simple appearing renal cysts seen bilaterally. IMPRESSION: * Multilevel disc degeneration changes with disc bulging worse at L3-L4 with superior and L4-5 with moderate canal stenosis. * Multilevel disc degeneration changes with neural foraminal stenosis worse at L4-L5 and L3-L4.
== END | disposition home or self-care (01) ==
LOC: RADMRIMAIN 17:56
PROVIDERS: ATTEND Orthopaedic Surgery Orthopaedic Surgery of the Spine
DX: M43.16 Spondylolisthesis, lumbar region (principal); M51.36 Other intervertebral disc degeneration, lumbar region; M47.816 Spondylosis without myelopathy or radiculopathy, lumbar region; M48.061 Spinal stenosis, lumbar region without neurogenic claudication; R26.9 Unspecified abnormalities of gait and mobility
CPT/HCPCS: 72148

== ENCOUNTER 2022-10-16 12:27 | Emergency (ER) | payer MEDICARE, OTHER ==
--- NOTE | 2022-10-16 12:41 | ED ---
General Adult HPI <Cherelle Henderson - Last Filed: 10/16/22 12:33> - General Source: patient, family <RodrigoChristiano - Last Filed: 10/16/22 17:04> - General Chief complaint: Shortness of Breath Stated complaint: dizziness, SOB Time Seen by Provider: 10/16/22 14:00 - History of Present Illness Initial comments: Patient is an 87 year old female presents with increased shortness of breath over the last 2 days along with dizziness with standing that has worsened over the last 3-4 days. She is also complaining of chest pressure ongoing intermittently since that has not. At this time she denies any headache, cough, congestion, abdominal pain, nausea, vomiting, fevers or chills. She utilizes home oxygen at bedtime but she has been unable to use it recently. (Cherelle Henderson) He 7-year-old female with complaints of breath or last couple days with dizziness with standing or the past who are 3-4 days is gotten worse. Also with an light chest pressure she does not have a this time. She states is worse enough to wake her from sleep (Christiano Wallace) - Related Data Home Medications Medication Instructions Recorded Confirmed Albuterol Sulfate [Proair Hfa] 2 puff INHALATION RT-QID PRN 12/23/20 10/16/22 Apixaban [Eliquis] 2.5 mg PO BID 12/23/20 10/16/22 Brimonidine Tartrate [Alphagan P 1 drops BOTH EYES Q8H 12/23/20 10/16/22 0.1% Ophth Soln] carvediloL [Coreg] 3.125 mg PO BID 12/23/20 10/16/22 Baclofen [Lioresal] 10 mg PO BID PRN 10/16/22 10/16/22 Fluticasone Propion/Salmeterol 1 puff PO RT-BID 10/16/22 10/16/22 [Wixela 500-50 Inhub] Gabapentin [Neurontin] 300 mg PO HS 10/16/22 10/16/22 Levothyroxine Sodium [Synthroid] 25 mcg PO DAILY 10/16/22 10/16/22 Meloxicam [Mobic] 7.5 mg PO BID 10/16/22 10/16/22 Rivastigmine Tartrate [Exelon] 3 mg PO BID 10/16/22 10/16/22 Spironolactone [Aldactone] 50 mg PO DAILY 10/16/22 10/16/22 traMADol HCL 50 mg PO Q6H PRN 10/16/22 10/16/22 Previous Rx's Medication Instructions Recorded Albuterol Sulfate [Proair Hfa] 2 puff INHALATION Q6HR PRN #1 gm 10/16/22 predniSONE [Deltasone] 20 mg PO BID #10 tab 10/16/22 Allergies Allergy/AdvReac Type Severity Reaction Status Date / Time Influenza Virus Vaccines Allergy Unknown Verified 10/16/22 12:47 Iodinated Contrast Media Allergy Unknown Verified 10/16/22 12:47 Review of Systems ROS Other: All systems not noted in ROS Statement are negative. <Cherelle Henderson - Last Filed: 10/16/22 12:33> ROS Other: All systems not noted in ROS Statement are negative. <Christiano Wallace - Last Filed: 10/16/22 17:04> ROS Statement: Those systems with pertinent positive or pertinent negative responses have been documented in the HPI. Past Medical History Past Medical History: Asthma, COPD, CVA/TIA, Diabetes Mellitus, GERD/Reflux, Hypertension Additional Past Medical History / Comment(s): glaucoma History of Any Multi-Drug Resistant Organisms: None Reported Past Surgical History: Back Surgery, Section, Hysterectomy, Orthopedic Surgery Additional Past Surgical History / Comment(s): pituitary tumor removed, lumbar laminectomy Past Anesthesia/Blood Transfusion Reactions: No Reported Reaction Past Psychological History: No Psychological Hx Reported Smoking Status: Former smoker Past Alcohol Use History: None Reported Past Drug Use History: None Reported - Past Family History Father History Unknown: Yes Mother History Unknown: Yes <Cherelle Henderson - Last Filed: 10/16/22 12:33> General Exam General appearance: alert, in no apparent distress Head exam: Present: atraumatic, normocephalic, normal inspection Eye exam: Present: normal appearance, PERRL, EOMI. Absent: scleral icterus, conjunctival injection, periorbital swelling ENT exam: Present: normal exam, mucous membranes moist Neck exam: Present: normal inspection, full ROM, other. Absent: tenderness, meningismus, lymphadenopathy Respiratory exam: Present: normal lung sounds bilaterally. Absent: respiratory distress, wheezes, rales, rhonchi, stridor Cardiovascular Exam: Present: regular rate, normal rhythm, normal heart sounds. Absent: systolic murmur, diastolic murmur, rubs, gallop, clicks GI/Abdominal exam: Present: soft, normal bowel sounds. Absent: distended, tenderness, guarding, rebound, rigid Extremities exam: Present: normal inspection, full ROM, normal capillary refill. Absent: tenderness, pedal edema, joint swelling, calf tenderness Back exam: Present: normal inspection Neurological exam: Present: alert, oriented X3, CN II-XII intact Psychiatric exam: Present: normal affect, normal mood Skin exam: Present: warm, dry, intact, normal color. Absent: rash <Christiano Wallace - Last Filed: 10/16/22 17:04> - General Exam Comments Initial Comments: This is a well-developed well-nourished awake alert oriented 5 female (Christiano Wallace) Course Vital Signs 10/16/22 10/16/22 10/16/22 12:43 13:51 16:01 Temperature 97.2 F L Pulse Rate 85 85 74 Pulse Rate [ 85 Substation Inspector ] Respiratory 16 18 18 Rate Blood Pressure 116/68 131/79 120/67 O2 Sat by Pulse 96 98 98 Oximetry Medical Decision Making - Lab Data Result diagrams: 10/16/22 14:10 10/16/22 16:02 - EKG Data -: EKG Interpreted by Me <Christiano Wallace - Last Filed: 10/16/22 17:04> - Medical Decision Making I did a long discussion with the patient initially with her family member also patient does not want to be admitted to admission was offered patient believes her symptoms are secondary to her COPD she would like a new pro-air inhaler I will put on oral steroids he did discuss return parameters. Was pt. sent in by a medical professional or institution? @ No-[by , PA, POLICY ISSUE CLERK, urgent care, hospital, or penitentiary] Did you speak to anyone other than the patient for history? @ Yes her daughter-[EMS, parent, family, police, friend?] Did you review nursing and triage notes? @ Yes I agree-[agree or disagree, why?] Were old charts reviewed? @ No-[outside hosp., previous admissions, EMS record, old EKG, old radiological studies, urgent care reports/EKGs, penitentiary records?] Differential Diagnosis? @ Chest pain secondary to musculoskeletal pain cardiac etiology pulmonary etiology referred pain likely secondary to the work of breathing-[chest pain, altered mental status abdominal pain women, abdominal pain men, vaginal blee ding, weakness, fever, dyspnea, syncope, headache, dizziness, GI bleed, back pain, seizure] EKG interpreted by me (3pts min.)? @ Yes no acute process yes no acute process -[none] X-rays interpreted by me (1pt min.)? @ No acute process yes-[none] CT interpreted by me (1pt min.)? @ -[none] U/S interpreted by me (1pt. min.)? @ -[none] What testing was considered but not performed? (CT, X-rays, U/S, labs)? Why? @ [CT, X-rays, U/S, labs? Why?] What meds were considered but not given? Why? @ -[none] Did you discuss the management of the patient with other professionals? @ No-[professionals i.e. Dr, PA, POLICY ISSUE CLERK, Lab, RT, Psych Nurse, Supervisor [employer], Forensic Science Technician, Teacher, Furnace Operator [employer], counseling case manager? Give summary] Did you reconcile home meds? @ -[none] Was smoking cessation discussed for >3mins.? @ -[none] Was critical care preformed (if so, how long)? @ -[none] Were there social determinants of health that impacted care today? How? (Homelessness, low income, unemployed, alcoholism, drug addiction, transpo rtation, low edu. Level, literacy, decrease access to med. care, snf, rehab)? @ -[Homelessness, low income, unemployed, alcoholism, drug addiction, transportation, low edu. Level, literacy, decrease access to med. care, snf, rehab?] Was there de-escalation of care discussed even if they declined? (Discuss DNR or withdrawal of care, Hospice)? @ No -[Discuss DNR or withdrawal of care, Hospice?] What co-morbidities impacted this encounter? (DM, HTN, Smoking, COPD, CAD, Cancer, CVA, Hep., AIDS, mental health diagnosis, sleep apnea, morbid obesity)? @ Asthma-[DM, HTN, Smoking, COPD, CAD, Cancer, CVA, Hep., AIDS, mental health diagnosis, sleep apnea, morbid obesity?] Was patient admitted / discharged? @ -[hospital course] Undiagnosed new problem with uncertain prognosis? @ -[none] Drug Therapy requiring intensive monitoring for toxicity (Heparin, Nitro, Insulin, Cardizem)? @ -[none] Were any procedures done? @ -[none] Diagnosis/symptom? @ Asthma exacerbation, dehydration, atypical chest pain-[default] Acute, or Chronic, or Acute on Chronic? @ Chronic with acute component-[default] Uncomplicated (without systemic symptoms) or Complicated (systemic symptoms)? @ -[default] Side effects of treatment? @ -[none] Exacerbation, Progression, or Severe Exacerbation] @ -[no] Poses a threat to life or bodily function? @ -[no] (Christiano Wallace) - Lab Data Lab Results 10/16/22 10/16/22 10/16/22 Range/Units 14:10 14:10 14:10 WBC 12.1 H (3.8-10.6) k/uL RBC 5.48 H (3.80-5.40) m/uL Hgb 15.5 (11.4-16.0) gm/dL Hct 46.0 (34.0-46.0) % MCV 83.9 (80.0-100.0) fL MCH 28.3 (25.0-35.0) pg MCHC 33.7 (31.0-37.0) g/dL RDW 14.0 (11.5-15.5) % Plt Count 360 (150-450) k/uL MPV 7.6 Neutrophils % 78 % Lymphocytes % 15 % Monocytes % 3 % Eosinophils % 1 % Basophils % 0 % Neutrophils # 9.5 H (1.3-7.7) k/uL Lymphocytes # 1.9 (1.0-4.8) k/uL Monocytes # 0.4 (0-1.0) k/uL Eosinophils # 0.2 (0-0.7) k/uL Basophils # 0.0 (0-0.2) k/uL PT 11.3 (9.0-12.0) sec INR 1.1 (<1.2) APTT 21.2 L (22.0-30.0) sec D-Dimer (<0.60) mg/L FEU Sodium (137-145) mmol/L Potassium (3.5-5.1) mmol/L Chloride (98-107) mmol/L Carbon Dioxide (22-30) mmol/L Anion Gap mmol/L BUN (7-17) mg/dL Creatinine (0.52-1.04) mg/dL Est GFR (CKD-EPI)AfAm (>60 ml/min/1.73 sqM) Est GFR (CKD-EPI)NonAf (>60 ml/min/1.73 sqM) Glucose (74-99) mg/dL Calcium (8.4-10.2) mg/dL Magnesium (1.6-2.3) mg/dL Total Bilirubin (0.2-1.3) mg/dL AST (14-36) U/L ALT (4-34) U/L Alkaline Phosphatase (38-126) U/L Creatine Kinase (30-135) U/L Troponin I <0.012 (0.000-0.034) ng/mL NT-Pro-B Natriuret Pep pg/mL Total Protein (6.3-8.2) g/dL Albumin (3.5-5.0) g/dL Influenza Type A (PCR) (Not Detectd) Influenza Type B (PCR) (Not Detectd) RSV (PCR) (Not Detectd) SARS-CoV-2 (PCR) (Not Detectd) 10/16/22 10/16/22 10/16/22 Range/Units 14:10 14:10 15:46 WBC (3.8-10.6) k/uL RBC (3.80-5.40) m/uL Hgb (11.4-16.0) gm/dL Hct (34.0-46.0) % MCV (80.0-100.0) fL MCH (25.0-35.0) pg MCHC (31.0-37.0) g/dL RDW (11.5-15.5) % Plt Count (150-450) k/uL MPV Neutrophils % % Lymphocytes % % Monocytes % % Eosinophils % % Basophils % % Neutrophils # (1.3-7.7) k/uL Lymphocytes # (1.0-4.8) k/uL Monocytes # (0-1.0) k/uL Eosinophils # (0-0.7) k/uL Basophils # (0-0.2) k/uL PT (9.0-12.0) sec INR (<1.2) APTT (22.0-30.0) sec D-Dimer 2.37 H (<0.60) mg/L FEU Sodium (137-145) mmol/L Potassium (3.5-5.1) mmol/L Chloride (98-107) mmol/L Carbon Dioxide (22-30) mmol/L Anion Gap mmol/L BUN (7-17) mg/dL Creatinine (0.52-1.04) mg/dL Est GFR (CKD-EPI)AfAm (>60 ml/min/1.73 sqM) Est GFR (CKD-EPI)NonAf (>60 ml/min/1.73 sqM) Glucose (74-99) mg/dL Calcium (8.4-10.2) mg/dL Magnesium (1.6-2.3) mg/dL Total Bilirubin (0.2-1.3) mg/dL AST (14-36) U/L ALT (4-34) U/L Alkaline Phosphatase (38-126) U/L Creatine Kinase <20 L (30-135) U/L Troponin I (0.000-0.034) ng/mL NT-Pro-B Natriuret Pep pg/mL Total Protein (6.3-8.2) g/dL Albumin (3.5-5.0) g/dL Influenza Type A (PCR) Not Detected (Not Detectd) Influenza Type B (PCR) Not Detected (Not Detectd) RSV (PCR) Not Detected (Not Detectd) SARS-CoV-2 (PCR) Not Detected (Not Detectd) 10/16/22 10/16/22 Range/Units 16:02 16:02 WBC (3.8-10.6) k/uL RBC (3.80-5.40) m/uL Hgb (11.4-16.0) gm/dL Hct (34.0-46.0) % MCV (80.0-100.0) fL MCH (25.0-35.0) pg MCHC (31.0-37.0) g/dL RDW (11.5-15.5) % Plt Count (150-450) k/uL MPV Neutrophils % % Lymphocytes % % Monocytes % % Eosinophils % % Basophils % % Neutrophils # (1.3-7.7) k/uL Lymphocytes # (1.0-4.8) k/uL Monocytes # (0-1.0) k/uL Eosinophils # (0-0.7) k/uL Basophils # (0-0.2) k/uL PT (9.0-12.0) sec INR (<1.2) APTT (22.0-30.0) sec D-Dimer (<0.60) mg/L FEU Sodium 135 L (137-145) mmol/L Potassium 5.0 (3.5-5.1) mmol/L Chloride 106 (98-107) mmol/L Carbon Dioxide 19 L (22-30) mmol/L Anion Gap 10 mmol/L BUN 33 H (7-17) mg/dL Creatinine 1.28 H (0.52-1.04) mg/dL Est GFR (CKD-EPI)AfAm 44 (>60 ml/min/1.73 sqM) Est GFR (CKD-EPI)NonAf 38 (>60 ml/min/1.73 sqM) Glucose 86 (74-99) mg/dL Calcium 8.9 (8.4-10.2) mg/dL Magnesium 2.2 (1.6-2.3) mg/dL Total Bilirubin 0.5 (0.2-1.3) mg/dL AST 25 (14-36) U/L ALT 27 (4-34) U/L Alkaline Phosphatase 123 (38-126) U/L Creatine Kinase (30-135) U/L Troponin I (0.000-0.034) ng/mL NT-Pro-B Natriuret Pep 182 pg/mL Total Protein 7.3 (6.3-8.2) g/dL Albumin 3.9 (3.5-5.0) g/dL Influenza Type A (PCR) (Not Detectd) Influenza Type B (PCR) (Not Detectd) RSV (PCR) (Not Detectd) SARS-CoV-2 (PCR) (Not Detectd) - EKG Data EKG Comments: EKG interpreted by me sinus rhythm a 77 appear interval 175 QRS duration 90 QT since QTC 345/377 minimal voltage criteria for LVH nonspecific T-wave configuration (Christiano Wallace) - Radiology Data Interpreted by me: I did (Christiano Wallace) Disposition <Cherelle Henderson - Last Filed: 10/16/22 12:33> Is patient prescribed a controlled substance at d/c from ED?: No Decision Date: 10/16/22 Decision Time: 17:04 <Christiano Wallace - Last Filed: 10/16/22 17:04> Clinical Impression: Atypical chest pain, Asthma, Dehydration Disposition: HOME SELF-CARE Condition: Good Instructions (If sedation given, give patient instructions): Asthma (ED), Chest Pain (ED) Prescriptions: predniSONE [Deltasone] 20 mg PO BID #10 tab Albuterol Sulfate [Proair Hfa] 2 puff INHALATION Q6HR PRN #1 gm PRN Reason: Dyspnea Referrals: Dani Salgado MD [Primary Care Provider] - 1-2 days
[2022-10-16 12:47] VITALS: TEMP 97.2
--- NOTE | 2022-10-16 13:17 | XR ---
EXAMINATION TYPE: XR chest 2V DATE OF EXAM: 10/16/2022 COMPARISON: 12/23/2020 INDICATION: Chest pain TECHNIQUE: Frontal and lateral views of the chest are obtained. FINDINGS: The heart size is normal. The pulmonary vasculature is normal. The lungs are clear. IMPRESSION: 1. No acute pulmonary process.
[2022-10-16 13:54] VITALS: RESP 18
[2022-10-16 14:35] LABS: HGB 15.5 gm/dL (11.4-16.0); MCV 83.9 fL (80.0-100.0); RBC 5.48 m/uL (3.80-5.40); WBC 12.1 k/uL (3.8-10.6)
[2022-10-16 14:36] LABS: Basophils % (A) 0 %; Eosinophils # (A) 0.2 k/uL (0-0.7); Eosinophils % (A) 1 %; Lymphocytes # (A) 1.9 k/uL (1.0-4.8); Lymphocytes % (A) 15 %; MCH 28.3 pg (25.0-35.0); MCHC 33.7 g/dL (31.0-37.0); Mean Platelet Volume 7.6; Monocytes # (A) 0.4 k/uL (0-1.0); Monocytes % (A) 3 %; Neutrophils # (A) 9.5 k/uL (1.3-7.7); Neutrophils % (A) 78 %; Platelet Count 360 k/uL (150-450)
[2022-10-16 15:14] LABS: INR 1.1 (<1.2); Prothrombin Time 11.3 sec (9.0-12.0)
[2022-10-16 15:24] LABS: Partial Thromboplastin Time 21.2 sec (22.0-30.0)
[2022-10-16 16:03] VITALS: PULSE 74
[2022-10-16 16:16] LABS: Albumin 3.9 g/dL (3.5-5.0); Calcium 8.9 mg/dL (8.4-10.2); Magnesium 2.2 mg/dL (1.6-2.3); Total Bilirubin 0.5 mg/dL (0.2-1.3); Total Protein 7.3 g/dL (6.3-8.2)
[2022-10-16] MEDS ORDERED: predniSONE 50 MG TAB PO STA (16:58)
[2022-10-16 17:14] VITALS: BP 127/67
== END 2022-10-16 18:24 | disposition home or self-care (01) ==
LOC: EC 12:27
DX: R07.89 Other chest pain (principal); E86.0 Dehydration; I10 Essential (primary) hypertension; G45.9 Transient cerebral ischemic attack, unspecified; E11.9 Type 2 diabetes mellitus without complications; J44.9 Chronic obstructive pulmonary disease, unspecified; Z20.822 Contact with and (suspected) exposure to COVID-19; Z79.899 Other long term (current) drug therapy; Z91.041 Radiographic dye allergy status; Z88.7 Allergy status to serum and vaccine
CPT/HCPCS: 36415; 93005; 85379; 83880; 80053; 82550; 83735; 84484; 85025; 85610; 85730; 87636; 71046; 99285; J7512

== ENCOUNTER 2022-12-18 12:48 | Inpatient (IN) | payer MEDICARE, OTHER ==
[2022-12-18] MEDS ORDERED: SODIUM CHLORIDE 0.9% 1,000 ML IV STA (13:33)
[2022-12-18] MEDS ORDERED: KETOROLAC 15 MG/ML 1 ML VIAL IVP STA (13:33)
[2022-12-18] MEDS ORDERED: FAMOTIDINE 20 MG/2 ML VIAL IV STA (13:35)
[2022-12-18] MEDS ORDERED: diphenhydrAMINE 50 MG/ML 1 ML VIAL IVP STA (13:35)
[2022-12-18] MEDS ORDERED: MORPHINE SULFATE 2 MG/ML SYRINGE IVP STA ×2 (13:35→15:39)
[2022-12-18] MEDS ORDERED: methylPREDNISolone SOD SUCCI 125 MG/2 ML VIAL IV STA (13:35)
--- NOTE | 2022-12-18 14:11 | ED ---
Abdominal Pain HPI - General Chief Complaint: Abdominal Pain Stated Complaint: abd pain Time Seen by Provider: 12/18/22 12:56 Source: patient, RN notes reviewed Mode of arrival: ambulatory Limitations: no limitations - History of Present Illness Initial Comments: This is an 87-year-old female who presents to the emergency department for left lower quadrant pain. States that this started last night and seems to be getting worse. She does have a history of diverticulitis and states that she has been constipated recently, however she did have a bowel movement yesterday. Denies any blood in her stool. Also denies any nausea or vomiting. Cannot rec all when she last had diverticulitis, but believes that it was several years ago. She takes tramadol at home, but states that it has not improved her symptoms whatsoever. Denies any fevers, chills, sore throat, cough, dyspnea, chest pain, palpitations, nausea, vomiting, diarrhea, back pain, or headaches. MD Complaint: abdominal pain Onset/Timin -: days(s) Location: Q - Related Data Home Medications Medication Instructions Recorded Confirmed RX: Apixaban [Eliquis] 2.5 mg PO BID 12/23/20 12/18/22 RX: Brimonidine Tartrate [Alphagan 1 drops BOTH EYES TID 12/23/20 12/18/22 P 0.1% Ophth Soln] RX: carvediloL [Coreg] 3.125 mg PO BID 12/23/20 12/18/22 Levothyroxine Sodium [Synthroid] 25 mcg PO DAILY 10/16/22 12/18/22 RX: traMADol HCL 50 mg PO BID 10/16/22 12/18/22 Rivastigmine Tartrate [Exelon] 3 mg PO BID 10/16/22 12/18/22 Spironolactone [Aldactone] 50 mg PO DAILY 10/16/22 12/18/22 Albuterol Sulfate [Proair Hfa] 2 puff INHALATION RT-Q4H PRN 12/18/22 12/18/22 Aspirin EC [Ecotrin Low Dose] 81 mg PO DAILY 12/18/22 12/18/22 Dorzolamide-Timol 2.23%/0.68% 1 drop LEFT EYE BID 12/18/22 12/18/22 [Cosopt] Fluticasone/Umeclidin/Vilanter 1 puff INHALATION RT-DAILY 12/18/22 12/18/22 [Trelegy Ellipta 200-62.5-25] Meclizine [Antivert] 25 mg PO TID PRN 12/18/22 12/18/22 RX: traMADol HCL 50 mg PO Q6H PRN 12/18/22 12/18/22 traZODone HCL [Desyrel] 50 mg PO HS 12/18/22 12/18/22 Allergies Allergy/AdvReac Type Severity Reaction Status Date / Time Influenza Virus Vaccines Allergy Unknown Verified 12/18/22 15:12 Iodinated Contrast Media Allergy Unknown Verified 12/18/22 15:12 Sulfa (Sulfonamide Allergy Unknown Verified 12/18/22 15:12 Antibiotics) Review of Systems ROS Statement: Those systems with pertinent positive or pertinent negative responses have been documented in the HPI. ROS Other: All systems not noted in ROS Statement are negative. Past Medical History Past Medical History: Asthma, COPD, CVA/TIA, Diabetes Mellitus, GERD/Reflux, Hypertension Additional Past Medical History / Comment(s): glaucoma, arthritis History of Any Multi-Drug Resistant Organisms: None Reported Past Surgical History: Back Surgery, Section, Hysterectomy, Orthopedic Surgery Additional Past Surgical History / Comment(s): pituitary tumor removed, lumbar laminectomy Past Anesthesia/Blood Transfusion Reactions: No Reported Reaction Past Psychological History: No Psychological Hx Reported Smoking Status: Former smoker Past Alcohol Use History: None Reported Past Drug Use History: None Reported - Past Family History Father History Unknown: Yes Mother History Unknown: Yes General Exam Limitations: no limitations General appearance: alert, in no apparent distress Head exam: Present: atraumatic, normocephalic, normal inspection Respiratory exam: Present: normal lung sounds bilaterally. Absent: respiratory distress, wheezes, rales, rhonchi, stridor Cardiovascular Exam: Present: regular rate, normal rhythm, normal heart sounds. Absent: systolic murmur, diastolic murmur, rubs, gallop, clicks GI/Abdominal exam: Present: soft, tenderness (LLQ), normal bowel sounds. Absent: distended, guarding, rebound, rigid Neurological exam: Present: alert, oriented X3, CN II-XII intact Psychiatric exam: Present: normal affect, normal mood Skin exam: Present: warm, dry, intact, normal color. Absent: rash Course Vital Signs 12/18/22 12:49 Temperature 98.0 F Pulse Rate 85 Respiratory 18 Rate Blood Pressure 132/64 O2 Sat by Pulse 96 Oximetry Medical Decision Making - Medical Decision Making This is an 87-year-old female who presents to the emergency department for abdominal pain. Was pt. sent in by a medical professional or institution? @ -No Did you speak to anyone other than the patient for history? @ -Her daughter Did you review nursing and triage notes? @ -Yes, and I agree, it is accurate with regards to the patient's symptoms. Were old charts reviewed? @ -No Differential Diagnosis? @ -Differential Abdominal Pain Women: Appendicitis, Cholecystitis, diverticulosis, ischemic bowel, pancreatitis, hepatitis, UTI, gastroenteritis, AAA, incarcerated hernia, bowel obstruction, constipation, inflammatory bowel, hepatitis, peptic ulcer disease, splenic infarction, perforated viscus, vulvitis, ovarian torsion, PID, kidney stone, placenta abruption, this is not meant to be an all-inclusive list CT interpreted by me (1pt min.)? @ -CT scan of the abdomen and pelvis obtained. My interpretation identifies diffuse diverticulosis with diverticulitis of the descending colon. What testing was considered but not performed? (CT, X-rays, U/S, labs)? Why? @ -None What meds were considered but not given? Why? @ -None Did you discuss the management of the patient with other professionals? @ -Yes, Dr. Sheikh, who accepts the patient for admission. Did you reconcile home meds? @ -No Was smoking cessation discussed for >3mins.? @ -No Was critical care preformed (if so, how long)? @ -No Were there social determinants of health that impacted care today? How? (Homelessness, low income, unemployed, alcoholism, drug addiction, transportation, low edu. Level, literacy, decrease access to med. care, long-term, rehab)? @ -No Was there de-escalation of care discussed even if they declined? (Discuss DNR or withdrawal of care, Hospice)? @ -No What co-morbidities impacted this encounter? (DM, HTN, Smoking, COPD, CAD, Can cer, CVA, Hep., AIDS, mental health diagnosis, sleep apnea, morbid obesity)? @ -Morbid obesity, HTN, GERD, DM, COPD. Was patient admitted / discharged? @ -Admitted. Lab work obtained and found to be nonactionable. Computed tomography scan of the abdomen and pelvis obtained revealing moderate diverticulitis no evidence of abscess formation or perforation. Discussed with the patient the option of discharge home with oral antibiotics versus admission for IV antibiotics. Patient requests admission for IV antibiotics and to help with pain management, as she is unable to control the pain at home with tramadol. States that at one point several years ago, she had severe diverticulitis that caused her to be in the ICU, and she does not want this to happen again. Patient started on IV Zosyn and admitted to medicine with general surgery consult. Undiagnosed new problem with uncertain prognosis? @ -None Drug Therapy requiring intensive monitoring for toxicity (Heparin, Nitro, I nsulin, Cardizem)? @ -None Were any procedures done? @ -None Diagnosis/symptom? @ -Diverticulitis Acute, or Chronic, or Acute on Chronic? @ -Acute Uncomplicated (without systemic symptoms) or Complicated (systemic symptoms)? @ -Complicated Side effects of treatment? @ -None Exacerbation, Progression, or Severe Exacerbation] @ -Not applicable Poses a threat to life or bodily function? @ -Yes This case was discussed in detail with the attending ED physician, Dr. Chacon. Presentation, findings, and treatment plan discussed in detail as well. - Lab Data Result diagrams: 12/18/22 13:41 12/18/22 13:41 Lab Results 12/18/22 12/18/22 12/18/22 Range/Units 13:41 13:41 13:41 WBC 10.1 (3.8-10.6) k/uL RBC 4.47 (3.80-5.40) m/uL Hgb 13.0 (11.4-16.0) gm/dL Hct 38.1 (34.0-46.0) % MCV 85.3 (80.0-100.0) fL MCH 29.1 (25.0-35.0) pg MCHC 34.1 (31.0-37.0) g/dL RDW 14.7 (11.5-15.5) % Plt Count 285 (150-450) k/uL MPV 8.6 Neutrophils % 71 % Lymphocytes % 14 % Monocytes % 9 % Eosinophils % 4 % Basophils % 0 % Neutrophils # 7.2 (1.3-7.7) k/uL Lymphocytes # 1.5 (1.0-4.8) k/uL Monocytes # 0.9 (0-1.0) k/uL Eosinophils # 0.4 (0-0.7) k/uL Basophils # 0.0 (0-0.2) k/uL PT 11.3 (9.0-12.0) sec INR 1.1 (<1.2) APTT 25.8 (22.0-30.0) sec Sodium 138 (137-145) mmol/L Potassium 4.4 (3.5-5.1) mmol/L Chloride 107 (98-107) mmol/L Carbon Dioxide 24 (22-30) mmol/L Anion Gap 7 mmol/L BUN 14 (7-17) mg/dL Creatinine 0.95 (0.52-1.04) mg/dL Est GFR (CKD-EPI)AfAm 63 (>60 ml/min/1.73 sqM) Est GFR (CKD-EPI)NonAf 55 (>60 ml/min/1.73 sqM) Glucose 101 H (74-99) mg/dL Plasma Lactic Acid Juan (0.7-2.0) mmol/L Calcium 8.3 L (8.4-10.2) mg/dL Total Bilirubin 0.6 (0.2-1.3) mg/dL AST 27 (14-36) U/L ALT 17 (4-34) U/L Alkaline Phosphatase 92 (38-126) U/L Troponin I (0.000-0.034) ng/mL Total Protein 6.6 (6.3-8.2) g/dL Albumin 3.4 L (3.5-5.0) g/dL Amylase 44 (30-110) U/L Lipase 74 (23-300) U/L 12/18/22 12/18/22 Range/Units 13:41 13:41 WBC (3.8-10.6) k/uL RBC (3.80-5.40) m/uL Hgb (11.4-16.0) gm/dL Hct (34.0-46.0) % MCV (80.0-100.0) fL MCH (25.0-35.0) pg MCHC (31.0-37.0) g/dL RDW (11.5-15.5) % Plt Count (150-450) k/uL MPV Neutrophils % % Lymphocytes % % Monocytes % % Eosinophils % % Basophils % % Neutrophils # (1.3-7.7) k/uL Lymphocytes # (1.0-4.8) k/uL Monocytes # (0-1.0) k/uL Eosinophils # (0-0.7) k/uL Basophils # (0-0.2) k/uL PT (9.0-12.0) sec INR (<1.2) APTT (22.0-30.0) sec Sodium (137-145) mmol/L Potassium (3.5-5.1) mmol/L Chloride (98-107) mmol/L Carbon Dioxide (22-30) mmol/L Anion Gap mmol/L BUN (7-17) mg/dL Creatinine (0.52-1.04) mg/dL Est GFR (CKD-EPI)AfAm (>60 ml/min/1.73 sqM) Est GFR (CKD-EPI)NonAf (>60 ml/min/1.73 sqM) Glucose (74-99) mg/dL Plasma Lactic Acid Juan 1.1 (0.7-2.0) mmol/L Calcium (8.4-10.2) mg/dL Total Bilirubin (0.2-1.3) mg/dL AST (14-36) U/L ALT (4-34) U/L Alkaline Phosphatase (38-126) U/L Troponin I <0.012 (0.000-0.034) ng/mL Total Protein (6.3-8.2) g/dL Albumin (3.5-5.0) g/dL Amylase (30-110) U/L Lipase (23-300) U/L - Radiology Data Radiology results: report reviewed, image reviewed Disposition Clinical Impression: Diverticulitis Disposition: ADMITTED IP TO THIS HOSP
--- NOTE | 2022-12-18 14:22 | CT ---
EXAMINATION: CT ABDOMEN AND PELVIS WITHOUT IV CONTRAST DATE OF EXAMINATION: 12/18/2022. COMPARISON: None available. INDICATION: Left lower quadrant pain. PROCEDURE: Axial CT of the abdomen and pelvis was performed without contrast and sagittal and young l reformatted images were performed. CT dose lowering techniques were used, to include: automated exp osure control, adjustment for patient size, and/or use of iterative reconstruction. These note that c ertain types of pathology are limited on a noncontrast evaluation. FINDINGS: LOWER CHEST : The visualized lung bases are clear. There are no pleural or pericardial effusions. ABDOMEN: Liver and Biliary system: Normal. Adrenal glands: Normal. Kidneys and ureters: There are numerous bilateral renal cysts with the largest on the right being in the inferior pole measuring approximately 4.8 cm in diameter. The largest on the left is in the upper pole measuring 8.5 cm in diameter. Spleen: Normal. Pancreas: Normal. Gallbladder: Normal. Lymph nodes, Peritoneum and mesentery: There is no mesenteric or retroperitoneal lymphadenopathy. Gastrointestinal tract: There are no dilated loops of bowel or free intraperitoneal air. The appe ndix is normal. There is severe diffuse colonic diverticulosis with diverticulitis involving the dist al portion of the descending colon. Aorta/IVC: No aortic aneurysm. IVC normal. Abdominal wall: Normal. PELVIS: Fluid: There is no free fluid in the pelvis. Lymph Nodes: There is no pelvic or inguinal lymphadenopathy.. Urinary bladder: Normal. BONES: There are no osseous destructive lesions.. ADDITIONAL SIGNIFICANT FINDINGS: None. IMPRESSION: 1. Diffuse severe colonic diverticulosis with moderate descending colonic diverticulitis. 2. No bowel obstruction or appendicitis. 3. Multiple bilateral renal cysts. 4. No renal stones or hydronephrosis.
[2022-12-18 14:27] LABS: INR 1.1 (<1.2); Partial Thromboplastin Time 25.8 sec (22.0-30.0); Prothrombin Time 11.3 sec (9.0-12.0)
[2022-12-18 14:28] LABS: Albumin 3.4 g/dL (3.5-5.0); Calcium 8.3 mg/dL (8.4-10.2); Total Bilirubin 0.6 mg/dL (0.2-1.3); Total Protein 6.6 g/dL (6.3-8.2)
[2022-12-18 14:37] LABS: Potassium 4.4 mmol/L (3.5-5.1)
[2022-12-18 15:43] LABS: Basophils % (A) 0 %; Eosinophils # (A) 0.4 k/uL (0-0.7); Eosinophils % (A) 4 %; HCT 38.1 % (34.0-46.0); Lymphocytes # (A) 1.5 k/uL (1.0-4.8); Lymphocytes % (A) 14 %; MCH 29.1 pg (25.0-35.0); MCHC 34.1 g/dL (31.0-37.0); MCV 85.3 fL (80.0-100.0); Mean Platelet Volume 8.6; Monocytes # (A) 0.9 k/uL (0-1.0); Monocytes % (A) 9 %; Neutrophils # (A) 7.2 k/uL (1.3-7.7); Neutrophils % (A) 71 %; Platelet Count 285 k/uL (150-450); RBC 4.47 m/uL (3.80-5.40); RDW 14.7 % (11.5-15.5); WBC 10.1 k/uL (3.8-10.6)
[2022-12-18] MEDS ORDERED: NALOXONE 0.4 MG/ML 1 ML VIAL IV PRN (16:28)
[2022-12-18] MEDS ORDERED: ACETAMINOPHEN TAB 325 MG TAB PO PRN (16:28)
[2022-12-18] MEDS ORDERED: ONDANSETRON 4 MG/2 ML VIAL IVP PRN (16:28)
[2022-12-18] MEDS ORDERED: MORPHINE SULFATE 2 MG/ML SYRINGE IVP PRN (16:31)
[2022-12-18] MEDS ORDERED: MECLIZINE 25 MG TAB PO PRN (16:32)
[2022-12-18] MEDS: PIPERACILLIN-TAZOBACTAM 3.375 GM in SODIUM CHLORIDE 0.9% 100 ML IVPB SCH ×2 (18:18→22:47)
[2022-12-18 18:38] LABS: Appearance,Urine Cloudy (Clear); Bacteria,Urine Rare /hpf; Bilirubin,Urine Negative (Negative); Blood,Urine Negative (Negative); Color,Urine Light Yellow; Glucose,Urine (UA) Negative (Negative); Hyaline Casts,Urine 1 /lpf (0-2); Ketones,Urine Negative (Negative); Leukocyte Esterase,Urine Large (Negative); Mucus,Urine Rare /hpf; Nitrite,Urine Negative (Negative); PH, Urine 5.5 (5.0-8.0); Protein,Urine Negative (Negative); RBC,Urine 2 /hpf (0-5); Specific Gravity,Urine 1.007 (1.001-1.035); Squamous Epithelial Cell,Urine 2 /hpf (0-4); Urobilinogen,Urine <2.0 mg/dL (<2.0); WBC,Urine 112 /hpf (0-5)
[2022-12-18] MEDS: APIXABAN 2.5 MG TABLET PO SCH (20:21)
[2022-12-18] MEDS: carvediloL 3.125 MG TAB PO SCH (20:21)
[2022-12-18] MEDS: traZODone HCL 50 MG TAB PO SCH (20:21)
[2022-12-18] MEDS: BRIMONIDINE TARTRATE 0.2% DROPS 5 ML BTL BOTH EYES SCH (20:53)
[2022-12-18] MEDS: DORZOLAMIDE-TIMOLOL 2.23%/0.68 10ML BTL LEFT EYE SCH (20:53)
[2022-12-19] MEDS: MORPHINE SULFATE 4 MG/ML SYRINGE IVP PRN ×4 (00:24→23:32)
[2022-12-19] MEDS: LEVOTHYROXINE 25 MCG TAB PO SCH (06:30)
[2022-12-19] MEDS: SYMBICORT 80-4.5 MCG INHALER INHALATION SCH ×2 (08:11→20:46)
[2022-12-19] MEDS: TIOTROPIUM 2.5 MCG INHALER INHALATION SCH (08:12)
[2022-12-19] MEDS: PIPERACILLIN-TAZOBACTAM 3.375 GM in SODIUM CHLORIDE 0.9% 100 ML IVPB SCH ×3 (08:59→23:34)
[2022-12-19] MEDS: carvediloL 3.125 MG TAB PO SCH ×2 (09:00→21:20)
[2022-12-19] MEDS: SPIRONOLACTONE 25 MG TAB PO SCH (09:00)
[2022-12-19] MEDS: DONEPEZIL 10 MG TAB PO SCH (09:01)
[2022-12-19] MEDS: BRIMONIDINE TARTRATE 0.2% DROPS 5 ML BTL BOTH EYES SCH ×3 (09:01→21:21)
[2022-12-19] MEDS: APIXABAN 2.5 MG TABLET PO SCH (09:01)
[2022-12-19] MEDS: DORZOLAMIDE-TIMOLOL 2.23%/0.68 10ML BTL LEFT EYE SCH ×2 (09:02→21:21)
[2022-12-19 09:05] LABS: African American GFR (CKD) 51.5 (60.0-200.0); Anion Gap 11.9 mmol/L (10.00-18.00); BUN/Creat Ratio 10.54 Ratio (12.00-20.00); Blood Urea Nitrogen 11.8 mg/dL (9.0-27.0); Calcium 8.4 mg/dL (8.7-10.3); Carbon Dioxide 20.5 mmol/L (20.0-27.5); Non-African American GFR(CKD) 44.4 (60.0-200.0); Potassium 3.9 mmol/L (3.5-5.5)
[2022-12-19 09:06] LABS: Basophils # (A) 0.03 X 10*3/uL (0.00-0.10); Basophils % (A) 0.3 %; Eosinophils # (A) 0.51 X 10*3/uL (0.04-0.35); HCT 33.9 % (37.2-46.3); HGB 10.7 g/dL (12.0-15.0); Immature Grans, Automated 0.3 %; Lymphocytes # (A) 2.25 X 10*3/uL (0.90-5.00); Lymphocytes % (A) 22.1 %; MCH 28.1 pg (27.0-32.0); MCHC 31.6 g/dL (32.0-37.0); Mean Platelet Volume 10.9 fL (9.5-12.2); Monocytes % (A) 11.8 %; NRBC Per 100 WBC 0 /100 WBCS (0.0-0.0); Neutrophils # (A) 6.18 X 10*3/uL (1.80-7.70); Neutrophils % (A) 60.5 %; Platelet Count 345 X 10*3/uL (140-440); RBC 3.81 X 10*6/uL (4.10-5.20); RDW 14.9 % (11.5-14.5)
[2022-12-19] MEDS: ENOXAPARIN 40 MG/0.4 ML SYRINGE SQ SCH ×2 (09:31→20:03)
--- NOTE | 2022-12-19 09:47 | P.HPIM ---
History of Present Illness This is a pleasant 87 years old female with multiple medical problems including Asthma, COPD, CVA/TIA, Diabetes Mellitus, GERD/Reflux, Hypertension, atrial fibrillation on eliquis Presents with left lower abdominal pain of 2 days duration , patient describes pain as sharp and radiating [id number] while at rest but, more severe with movement, she didn't lose her appetite with no vomiting but she does not have bowel movement for the last 2 days. She denies any urinary symptoms. No headache dizziness weakness or numbness. No chest pain dyspnea or coughing. she denies smoking alcohol or illicit drugs. patient is afebrile and vital signs stable Patient has unremarkable labs CBC, INR, BMP and liver enzymes. Lipase normal. Urine analysis is cloudy with large leukocyte esterase. CT of the abdomen and pelvis on admission showing: Diffuse severe colonic diverticulosis with moderate descending colonic diverticulitis, no bowel obstruction. multiple bilateral renal cysts with no stone or hydro-necrosis patient was admitted to the general medical floor, she was started on Zosyn and surgical team consult Review of Systems Review of systems CONSTITUTIONAL: No fever, no malaise, no fatigue. HEENT: No recent visual problems or hearing problems. Denied any sore throat. CARDIOVASCULAR: No orthopnea, PND, no palpitations, no syncope. PULMONARY: No shortness of breath, no cough, no hemoptysis. GASTROINTESTINAL: No diarrhea, no vomiting, . Normoactive bowel sounds. NEUROLOGICAL: No headaches, no weakness, no numbness. HEMATOLOGICAL: Denies any bleeding or petechiae. GENITOURINARY: Denies any burning micturition, frequency, or urgency. MUSCULOSKELETAL/RHEUMATOLOGICAL: Denies any joint pain, swelling, or any muscle pain. ENDOCRINE: Denies any polyuria or polydipsia. Past Medical History Past Medical History: Asthma, COPD, CVA/TIA, Diabetes Mellitus, GERD/Reflux, Hypertension Additional Past Medical History / Comment(s): glaucoma, arthritis History of Any Multi-Drug Resistant Organisms: None Reported Past Surgical History: Back Surgery, Section, Hysterectomy, Orthopedic Surgery Additional Past Surgical History / Comment(s): pituitary tumor removed, lumbar laminectomy Past Anesthesia/Blood Transfusion Reactions: No Reported Reaction Past Psychological History: No Psychological Hx Reported Smoking Status: Former smoker Past Alcohol Use History: None Reported Past Drug Use History: None Reported - Past Family History Father History Unknown: Yes Mother History Unknown: Yes Medications and Allergies Home Medications Medication Instructions Recorded Confirmed Type RX: Apixaban [Eliquis] 2.5 mg PO BID 12/23/20 12/18/22 History RX: Brimonidine Tartrate [Alphagan 1 drops BOTH EYES TID 12/23/20 12/18/22 History P 0.1% Ophth Soln] RX: carvediloL [Coreg] 3.125 mg PO BID 12/23/20 12/18/22 History Levothyroxine Sodium [Synthroid] 25 mcg PO DAILY 10/16/22 12/18/22 History RX: traMADol HCL 50 mg PO BID 10/16/22 12/18/22 History Rivastigmine Tartrate [Exelon] 3 mg PO BID 10/16/22 12/18/22 History Spironolactone [Aldactone] 50 mg PO DAILY 10/16/22 12/18/22 History Albuterol Sulfate [Proair Hfa] 2 puff INHALATION RT-Q4H PRN 12/18/22 12/18/22 History Aspirin EC [Ecotrin Low Dose] 81 mg PO DAILY 12/18/22 12/18/22 History Dorzolamide-Timol 2.23%/0.68% 1 drop LEFT EYE BID 12/18/22 12/18/22 History [Cosopt] Fluticasone/Umeclidin/Vilanter 1 puff INHALATION RT-DAILY 12/18/22 12/18/22 History [Trelegy Ellipta 200-62.5-25] Meclizine [Antivert] 25 mg PO TID PRN 12/18/22 12/18/22 History RX: traMADol HCL 50 mg PO Q6H PRN 12/18/22 12/18/22 History traZODone HCL [Desyrel] 50 mg PO HS 12/18/22 12/18/22 History Allergies Allergy/AdvReac Type Severity Reaction Status Date / Time Influenza Virus Vaccines Allergy Unknown Verified 12/18/22 15:12 Iodinated Contrast Media Allergy Unknown Verified 12/18/22 15:12 Sulfa (Sulfonamide Allergy Unknown Verified 12/18/22 15:12 Antibiotics) Physical Exam Vitals: Vital Signs Temp Pulse Pulse Resp BP BP Pulse Ox 12/19/22 02:00 97.5 F L 88 16 132/74 95 12/18/22 20:49 16 141/67 98 12/18/22 20:00 97.5 F L 74 16 98 12/18/22 19:27 82 17 118/61 95 12/18/22 18:15 84 18 120/70 96 12/18/22 12:49 98.0 F 85 18 132/64 96 Intake and Output 12/18/22 12/18/22 12/19/22 14:59 22:59 06:59 Intake Total 460 Balance 460 Intake: Intake, IV Titration 100 Amount Piperacillin-Tazobactam 3 100 .375 gm In Sodium Chloride 0.9% 100 ml @ 25 mls/hr IVPB Q8HR [facility] Rx# :[id number] Oral 360 Other: # Voids 2 Weight 84.368 kg 84.368 kg GENERAL: The patient is alert and oriented x3, not in any acute distress. Well developed, well nourished. HEENT: Pupils are round and equally reacting to light. EOMI. No scleral icterus. No conjunctival pallor. Normocephalic, atraumatic. No pharyngeal erythema. No thyromegaly. CARDIOVASCULAR: S1 and S2 present. No murmurs, rubs, or gallops. PULMONARY: Chest is clear to auscultation, no wheezing or crackles. -ABDOMEN: Soft, left lower quadrant tenderness, no guarding or rebound tenderness, nondistended, normoactive bowel sounds. No palpable organomegaly. MUSCULOSKELETAL: No joint swelling or deformity. EXTREMITIES: No cyanosis, clubbing, or pedal edema. NEUROLOGICAL: Gross neurological examination did not reveal any focal deficits. SKIN: No rashes. no petechiae. Results CBC & Chem 7: 12/19/22 06:26 12/19/22 06:26 Labs: Abnormal Lab Results - Last 24 Hours (Table) 12/18/22 12/18/22 Range/Units 13:41 13:41 Glucose 101 H (74-99) mg/dL Calcium 8.3 L (8.4-10.2) mg/dL Albumin 3.4 L (3.5-5.0) g/dL Urine Appearance Cloudy H (Clear) Ur Leukocyte Esterase Large H (Negative) Urine WBC 112 H (0-5) /hpf Urine Bacteria Rare H (None) /hpf Urine Mucus Rare H (None) /hpf Thrombosis Risk Factor Assmnt - Choose All That Apply Any of the Below Risk Factors Present?: No Each Risk Factor Represents 3 Points: Age 75 years or older Other congenital or acquired thrombophilia - If yes, enter type in comment: No Thrombosis Risk Factor Assessment Total Risk Factor Score: 3 Thrombosis Risk Factor Assessment Level: Moderate Risk Assessment and Plan Assessment: Acute diverticulitis Diabetes mellitus Hypertension atrial fibrillation on eliquis Multiple bilateral renal cysts History of GERD History of CVA/TIA Assessment/COPD, not an active issue Plan: Continue with bowel rest and advanced diet as tolerated, currently on liquid diet An management IV fluids Continue with Zosyn Surgery consult Labs and medication were reviewed.. Continue same treatment. Continue with symptomatic treatment. Resume home medication. Monitor labs and vitals. DVT and GI prophylaxis. Further recommendations as per clinical course of the patient DVT prophylaxis: eliquis GI Prophylaxis: Pepcid PT/OT: Pending Prognosis is guarded
--- NOTE | 2022-12-19 11:38 | P.GSCN ---
History of Present Illness Consult date: 12/19/22 History of present illness: CHIEF COMPLAINT: Abdominal pain HISTORY OF PRESENT ILLNESS: This 87-year-old female with a known history of diverticulitis and constipation. She presents to the hospital today complaining of left lower quadrant abdominal pain. She had a computed tomography scan that showed evidence of diverticulitis in the descending colon. She's been started on IV antibiotics. She denies any nausea or vomiting. Last bowel movement 2 days ago. Last colonoscopy she reports is about 5 years ago she does not remember the results. She is on Eliquis for stroke per patient. Surgical service consulted in regards to diverticulitis. Patient seen and examined with Dr. mcclain PAST MEDICAL HISTORY: See below. COPD, diabetes mellitus PAST SURGICAL HISTORY: See below. and hysterectomy MEDICATIONS: See below ALLERGIES: See below SOCIAL HISTORY: No illicit drug use. REVIEW OF SYSTEMS: CONSTITUTIONAL: Denies fever or chills. HEENT: Denies blurred vision, vision changes, or eye pain. Denies hemoptysis CARDIOVASCULAR: Denies chest pain or pressure. RESPIRATORY: No shortness of breath. GASTROINTESTINAL: See HPI for pertinent findings HEMATOLOGIC: Denies bleeding disorders. GENITOURINARY: Denies any blood in urine or increased urinary frequency. SKIN: Denies pruitis. Denies rash. PHYSICAL EXAM: VITAL SIGNS: Reviewed GENERAL: Well-developed in no acute distress. HEENT: No sclera icterus. Extraocular movements grossly intact. Moist buccal mucosa. Head is atraumatic, normocephalic. No nasal drainage. ABDOMEN: Soft. Nondistended. Tenderness left lower quadrant NEUROLOGIC: Alert and oriented. Cranial nerves II through XII grossly intact. LABORATORY DATA: WBC is 10.2 Hgb 10.7 platelets 345 Sodium 143 potassium is 3.9 creatinine 1.1 Lactic acid 1.1 Urine culture pending IMAGING: Computed tomography scan abdomen and pelvis shows diffuse severe colonic diverticulosis with moderate descending colonic diverticulitis. No bowel obstruction or appendicitis. Multiple bilateral renal cysts. No renal stones or hydronephrosis. ASSESSMENT: 1. Acute moderate descending colonic diverticulitis PLAN: -Continue to monitor -Continue IV antibiotics -Continue clear liquid diet -Continue supportive care -Continue pain medication as needed Physician Core Extruder note has been reviewed by physician. Signing provider agrees with the documented findings, assessment, and plan of care. Past Medical History Past Medical History: Asthma, COPD, CVA/TIA, Diabetes Mellitus, GERD/Reflux, Hypertension Additional Past Medical History / Comment(s): glaucoma, arthritis History of Any Multi-Drug Resistant Organisms: None Reported Past Surgical History: Back Surgery, Section, Hysterectomy, Orthopedic Surgery Additional Past Surgical History / Comment(s): pituitary tumor removed, lumbar laminectomy Past Anesthesia/Blood Transfusion Reactions: No Reported Reaction Past Psychological History: No Psychological Hx Reported Smoking Status: Former smoker Past Alcohol Use History: None Reported Past Drug Use History: None Reported - Past Family History Father History Unknown: Yes Mother History Unknown: Yes Medications and Allergies Home Medications Medication Instructions Recorded Confirmed Type Apixaban [Eliquis] 2.5 mg PO BID 12/23/20 12/18/22 History Brimonidine Tartrate [Alphagan P 1 drops BOTH EYES TID 12/23/20 12/18/22 History 0.1% Ophth Soln] carvediloL [Coreg] 3.125 mg PO BID 12/23/20 12/18/22 History Levothyroxine Sodium [Synthroid] 25 mcg PO DAILY 10/16/22 12/18/22 History Rivastigmine Tartrate [Exelon] 3 mg PO BID 10/16/22 12/18/22 History Spironolactone [Aldactone] 50 mg PO DAILY 10/16/22 12/18/22 History traMADol HCL 50 mg PO BID 10/16/22 12/18/22 History Albuterol Sulfate [Proair Hfa] 2 puff INHALATION RT-Q4H PRN 12/18/22 12/18/22 History Aspirin EC [Ecotrin Low Dose] 81 mg PO DAILY 12/18/22 12/18/22 History Dorzolamide-Timol 2.23%/0.68% 1 drop LEFT EYE BID 12/18/22 12/18/22 History [Cosopt] Fluticasone/Umeclidin/Vilanter 1 puff INHALATION RT-DAILY 12/18/22 12/18/22 History [Trelegy Ellipta 200-62.5-25] Meclizine [Antivert] 25 mg PO TID PRN 12/18/22 12/18/22 History traMADol HCL 50 mg PO Q6H PRN 12/18/22 12/18/22 History traZODone HCL [Desyrel] 50 mg PO HS 12/18/22 12/18/22 History Allergies Allergy/AdvReac Type Severity Reaction Status Date / Time Influenza Virus Vaccines Allergy Unknown Verified 12/18/22 15:12 Iodinated Contrast Media Allergy Unknown Verified 12/18/22 15:12 Sulfa (Sulfonamide Allergy Unknown Verified 12/18/22 15:12 Antibiotics) Surgical - Exam Vital Signs Temp Pulse Resp BP Pulse Ox 98.0 F 85 18 132/64 96 12/18/22 12:49 12/18/22 12:49 12/18/22 12:49 12/18/22 12:49 12/18/22 12:49 Results - Labs 12/19/22 06:26 12/19/22 06:26 Abnormal Lab Results - Last 24 Hours (Table) 12/18/22 12/18/22 12/19/22 Range/Units 13:41 13:41 06:26 WBC 10.20 H (4.50-10.00) X 10*3/uL RBC 3.81 L (4.10-5.20) X 10*6/uL Hgb 10.7 L (12.0-15.0) g/dL Hct 33.9 L (37.2-46.3) % MCHC 31.6 L (32.0-37.0) g/dL RDW 14.9 H (11.5-14.5) % Monocytes # 1.20 H (0.20-1.00) X 10*3/uL Eosinophils # 0.51 H (0.04-0.35) X 10*3/uL Chloride (96-109) mmol/L Est GFR (CKD-EPI)AfAm (60.0-200.0) Est GFR (CKD-EPI)NonAf (60.0-200.0) BUN/Creatinine Ratio (12.00-20.00) Ratio Glucose 101 H (74-99) mg/dL Calcium 8.3 L (8.4-10.2) mg/dL Albumin 3.4 L (3.5-5.0) g/dL Urine Appearance Cloudy H (Clear) Ur Leukocyte Esterase Large H (Negative) Urine WBC 112 H (0-5) /hpf Urine Bacteria Rare H (None) /hpf Urine Mucus Rare H (None) /hpf 12/19/22 Range/Units 06:26 WBC (4.50-10.00) X 10*3/uL RBC (4.10-5.20) X 10*6/uL Hgb (12.0-15.0) g/dL Hct (37.2-46.3) % MCHC (32.0-37.0) g/dL RDW (11.5-14.5) % Monocytes # (0.20-1.00) X 10*3/uL Eosinophils # (0.04-0.35) X 10*3/uL Chloride 110 H (96-109) mmol/L Est GFR (CKD-EPI)AfAm 51.5 L (60.0-200.0) Est GFR (CKD-EPI)NonAf 44.4 L (60.0-200.0) BUN/Creatinine Ratio 10.54 L (12.00-20.00) Ratio Glucose (74-99) mg/dL Calcium 8.4 L (8.4-10.2) mg/dL Albumin (3.5-5.0) g/dL Urine Appearance (Clear) Ur Leukocyte Esterase (Negative) Urine WBC (0-5) /hpf Urine Bacteria (None) /hpf Urine Mucus (None) /hpf Microbiology - Last 24 Hours (Table) 12/18/22 13:41 Urine Culture - Preliminary Urine,Voided Diabetes panel 12/18/22 12/19/22 Range/Units 13:41 06:26 Sodium 138 143 (137-145) mmol/L Potassium 4.4 3.9 (3.5-5.1) mmol/L Chloride 107 110 H (98-107) mmol/L Carbon Dioxide 24 20.5 (22-30) mmol/L BUN 14 11.8 (7-17) mg/dL Creatinine 0.95 1.1 (0.52-1.04) mg/dL Glucose 101 H 95 (74-99) mg/dL Calcium 8.3 L 8.4 L (8.4-10.2) mg/dL AST 27 (14-36) U/L ALT 17 (4-34) U/L Alkaline Phosphatase 92 (38-126) U/L Total Protein 6.6 (6.3-8.2) g/dL Albumin 3.4 L (3.5-5.0) g/dL Calcium panel 12/18/22 12/19/22 Range/Units 13:41 06:26 Calcium 8.3 L 8.4 L (8.4-10.2) mg/dL Albumin 3.4 L (3.5-5.0) g/dL Pituitary panel 12/18/22 12/19/22 Range/Units 13:41 06:26 Sodium 138 143 (137-145) mmol/L Potassium 4.4 3.9 (3.5-5.1) mmol/L Chloride 107 110 H (98-107) mmol/L Carbon Dioxide 24 20.5 (22-30) mmol/L BUN 14 11.8 (7-17) mg/dL Creatinine 0.95 1.1 (0.52-1.04) mg/dL Glucose 101 H 95 (74-99) mg/dL Calcium 8.3 L 8.4 L (8.4-10.2) mg/dL Adrenal panel 12/18/22 12/19/22 Range/Units 13:41 06:26 Sodium 138 143 (137-145) mmol/L Potassium 4.4 3.9 (3.5-5.1) mmol/L Chloride 107 110 H (98-107) mmol/L Carbon Dioxide 24 20.5 (22-30) mmol/L BUN 14 11.8 (7-17) mg/dL Creatinine 0.95 1.1 (0.52-1.04) mg/dL Glucose 101 H 95 (74-99) mg/dL Calcium 8.3 L 8.4 L (8.4-10.2) mg/dL Total Bilirubin 0.6 (0.2-1.3) mg/dL AST 27 (14-36) U/L ALT 17 (4-34) U/L Alkaline Phosphatase 92 (38-126) U/L Total Protein 6.6 (6.3-8.2) g/dL Albumin 3.4 L (3.5-5.0) g/dL
[2022-12-19] MEDS: traZODone HCL 50 MG TAB PO SCH (21:20)
[2022-12-20] MEDS: LEVOTHYROXINE 25 MCG TAB PO SCH (05:50)
[2022-12-20] MEDS: ENOXAPARIN 40 MG/0.4 ML SYRINGE SQ SCH ×2 (07:56→20:45)
[2022-12-20] MEDS: PIPERACILLIN-TAZOBACTAM 3.375 GM in SODIUM CHLORIDE 0.9% 100 ML IVPB SCH ×3 (07:57→23:15)
[2022-12-20] MEDS: DONEPEZIL 10 MG TAB PO SCH (07:57)
[2022-12-20] MEDS: carvediloL 3.125 MG TAB PO SCH ×2 (07:58→21:32)
[2022-12-20] MEDS: SPIRONOLACTONE 25 MG TAB PO SCH (07:58)
[2022-12-20] MEDS: BRIMONIDINE TARTRATE 0.2% DROPS 5 ML BTL BOTH EYES SCH ×3 (08:00→21:33)
[2022-12-20] MEDS: DORZOLAMIDE-TIMOLOL 2.23%/0.68 10ML BTL LEFT EYE SCH ×2 (08:06→21:33)
[2022-12-20] MEDS: SYMBICORT 80-4.5 MCG INHALER INHALATION SCH ×2 (08:39→19:30)
[2022-12-20] MEDS: TIOTROPIUM 2.5 MCG INHALER INHALATION SCH (08:39)
[2022-12-20] MEDS ORDERED: DOCUSATE 100 MG CAP PO STA (08:53)
[2022-12-20] MEDS ORDERED: DOCUSATE 100 MG CAP PO PRN (08:54)
[2022-12-20] MEDS: HYDROcodone/APAP 5-325MG 1 EACH TAB PO PRN ×3 (09:04→21:32)
[2022-12-20 10:56] LABS: Basophils # (A) 0.06 X 10*3/uL (0.00-0.10); Basophils % (A) 0.8 %; Eosinophils # (A) 0.46 X 10*3/uL (0.04-0.35); Eosinophils % (A) 5.9 %; HCT 35.1 % (37.2-46.3); HGB 10.8 g/dL (12.0-15.0); Immature Grans, Automated 0.4 %; Lymphocytes # (A) 2.07 X 10*3/uL (0.90-5.00); Lymphocytes % (A) 26.4 %; MCH 27.4 pg (27.0-32.0); MCHC 30.8 g/dL (32.0-37.0); MCV 89.1 fL (80.0-97.0); Mean Platelet Volume 10.4 fL (9.5-12.2); Monocytes # (A) 0.92 X 10*3/uL (0.20-1.00); Monocytes % (A) 11.7 %; NRBC Per 100 WBC 0 /100 WBCS (0.0-0.0); Neutrophils # (A) 4.31 X 10*3/uL (1.80-7.70); Neutrophils % (A) 54.8 %; Platelet Count 327 X 10*3/uL (140-440); RBC 3.94 X 10*6/uL (4.10-5.20); RDW 14.7 % (11.5-14.5); WBC 7.85 X 10*3/uL (4.50-10.00)
[2022-12-20] MEDS: MORPHINE SULFATE 4 MG/ML SYRINGE IVP PRN ×3 (12:22→23:12)
--- NOTE | 2022-12-20 13:06 | P.PN ---
Subjective Progress Note Date: 12/20/22 CHIEF COMPLAINT: Diverticulitis HISTORY OF PRESENT ILLNESS: Patient reports decrease in her left lower quadrant abdominal pain. Denies any nausea or vomiting. Afebrile. WBC 10.2 down to 7.85 Hgb 10.8 platelets 327 Patient seen and examined with Dr. mcclain PHYSICAL EXAM: VITAL SIGNS: Reviewed. GENERAL: Well-developed in no acute distress. HEENT: No sclera icterus. Extraocular movements grossly intact. Moist buccal mucosa. Head is atraumatic, normocephalic. ABDOMEN: Soft. Nondistended. Left lower quadrant tenderness NEUROLOGIC: Alert and oriented. Cranial nerves II through XII grossly intact. ASSESSMENT: 1. Acute moderate descending colonic diverticulitis PLAN: -Advance diet to full liquids -Continue IV antibiotics -Continue supportive care Physician Oil Sprayer note has been reviewed by physician. Signing provider agrees with the documented findings, assessment, and plan of care. Objective - Vital Signs Vital signs: Vital Signs Temp 97.2 F L 12/20/22 07:25 Pulse 82 12/20/22 09:10 Resp 16 12/20/22 09:10 BP 130/73 12/20/22 07:25 Pulse Ox 96 12/20/22 07:25 FiO2 Intake & Output 12/19/22 12/20/22 12/20/22 18:59 06:59 18:59 Intake Total 325 Balance 325 Intake: Oral 325 Other: # Voids 2 5 - Labs CBC & Chem 7: 12/20/22 05:39 12/19/22 06:26 Labs: Microbiology - Last 24 Hours (Table) 12/18/22 13:41 Urine Culture - Final Urine,Voided
[2022-12-20] MEDS: traZODone HCL 50 MG TAB PO SCH (21:32)
--- NOTE | 2022-12-20 21:45 | P.PN ---
Subjective This is a pleasant 87 years old female with multiple medical problems including Asthma, COPD, CVA/TIA, Diabetes Mellitus, GERD/Reflux, Hypertension, atrial fibrillation on eliquis Presents with left lower abdominal pain of 2 days duration , patient describes pain as sharp and radiating [id number]-[id number] while at rest but, more severe with movement, she didn't lose her appetite with no vomiting but she does not have bowel movement for the last 2 days. She denies any urinary symptoms. No headache dizziness weakness or numbness. No chest pain dyspnea or coughing. she denies smoking alcohol or illicit drugs. patient is afebrile and vital signs stable Patient has unremarkable labs CBC, INR, BMP and liver enzymes. Lipase normal. Urine analysis is cloudy with large leukocyte esterase. CT of the abdomen and pelvis on admission showing: Diffuse severe colonic diverticulosis with moderate descending colonic diverticulitis, no bowel obstruc tion. multiple bilateral renal cysts with no stone or hydro-necrosis patient was admitted to the general medical floor, she was started on Zosyn and surgical team consult 12/20/2022 Patient is still complaining from left lower quadrant abdominal pain and tenderness with mild guarding She still complained from constipation and she wants some laxative, most likely this is related to narcotics as well as other factors, we started the patient on Colace Advance diet to full liquid diet slowly Continue with pain medication Continue with Lovenox Patient also on Zosyn Objective - Vital Signs Vital signs: Vital Signs Temp 98.2 F 12/20/22 14:00 Pulse 84 12/20/22 14:00 Resp 16 12/20/22 14:00 BP 100/58 12/20/22 14:00 Pulse Ox 93 L 12/20/22 14:00 FiO2 Intake & Output 12/19/22 12/20/22 12/20/22 18:59 06:59 18:59 Intake Total 425 Balance 425 Intake: Oral 425 Other: # Voids 2 5 2 - Exam GENERAL: The patient is alert and oriented x3, not in any acute distress. Well developed, well nourished. HEENT: Pupils are round and equally reacting to light. EOMI. No scleral icterus. No conjunctival pallor. Normocephalic, atraumatic. No pharyngeal erythema. No thyromegaly. CARDIOVASCULAR: S1 and S2 present. No murmurs, rubs, or gallops. PULMONARY: Chest is clear to auscultation, no wheezing or crackles. -ABDOMEN: Soft, LLQ tenderness with mild guarding but no rebound tenderness tended, normoactive bowel sounds. No palpable organomegaly. MUSCULOSKELETAL: No joint swelling or deformity. EXTREMITIES: No cyanosis, clubbing, or pedal edema. NEUROLOGICAL: Gross neurological examination did not reveal any focal deficits. SKIN: No rashes. no petechiae. - Labs CBC & Chem 7: 12/20/22 05:39 12/19/22 06:26 Labs: Abnormal Lab Results - Last 24 Hours (Table) 12/20/22 Range/Units 05:39 RBC 3.94 L (4.10-5.20) X 10*6/uL Hgb 10.8 L (12.0-15.0) g/dL Hct 35.1 L (37.2-46.3) % MCHC 30.8 L (32.0-37.0) g/dL RDW 14.7 H (11.5-14.5) % Eosinophils # 0.46 H (0.04-0.35) X 10*3/uL Microbiology - Last 24 Hours (Table) 12/18/22 13:41 Urine Culture - Final Urine,Voided
[2022-12-21] MEDS: LEVOTHYROXINE 25 MCG TAB PO SCH (07:13)
[2022-12-21] MEDS: BRIMONIDINE TARTRATE 0.2% DROPS 5 ML BTL BOTH EYES SCH ×3 (07:14→21:01)
[2022-12-21] MEDS: DORZOLAMIDE-TIMOLOL 2.23%/0.68 10ML BTL LEFT EYE SCH ×2 (07:14→21:01)
[2022-12-21] MEDS: ENOXAPARIN 40 MG/0.4 ML SYRINGE SQ SCH ×2 (08:16→21:00)
[2022-12-21] MEDS: SPIRONOLACTONE 25 MG TAB PO SCH (08:17)
[2022-12-21] MEDS: PIPERACILLIN-TAZOBACTAM 3.375 GM in SODIUM CHLORIDE 0.9% 100 ML IVPB SCH ×3 (08:17→23:51)
[2022-12-21] MEDS: carvediloL 3.125 MG TAB PO SCH ×2 (08:17→21:00)
[2022-12-21] MEDS: DONEPEZIL 10 MG TAB PO SCH (08:17)
[2022-12-21] MEDS: SYMBICORT 80-4.5 MCG INHALER INHALATION SCH ×2 (08:50→20:51)
[2022-12-21] MEDS: TIOTROPIUM 2.5 MCG INHALER INHALATION SCH (08:50)
[2022-12-21 08:53] LABS: Basophils # (A) 0.06 X 10*3/uL (0.00-0.10); Basophils % (A) 0.9 %; Eosinophils # (A) 0.53 X 10*3/uL (0.04-0.35); Eosinophils % (A) 8.1 %; HCT 35.4 % (37.2-46.3); Immature Grans, Automated 0.3 %; Lymphocytes # (A) 2.16 X 10*3/uL (0.90-5.00); Lymphocytes % (A) 33.2 %; MCH 27.6 pg (27.0-32.0); MCHC 31.1 g/dL (32.0-37.0); MCV 88.7 fL (80.0-97.0); Mean Platelet Volume 10.9 fL (9.5-12.2); Monocytes % (A) 12.3 %; NRBC Per 100 WBC 0 /100 WBCS (0.0-0.0); Neutrophils # (A) 2.94 X 10*3/uL (1.80-7.70); Neutrophils % (A) 45.2 %; Platelet Count 356 X 10*3/uL (140-440); RBC 3.99 X 10*6/uL (4.10-5.20); RDW 14.6 % (11.5-14.5); WBC 6.51 X 10*3/uL (4.50-10.00)
[2022-12-21 09:29] LABS: Anion Gap 10.8 mmol/L (10.00-18.00); BUN/Creat Ratio 6.15 Ratio (12.00-20.00); Calcium 8.8 mg/dL (8.7-10.3); Carbon Dioxide 22.2 mmol/L (20.0-27.5); Non-African American GFR(CKD) 37.1 (60.0-200.0); Potassium 4.1 mmol/L (3.5-5.5)
--- NOTE | 2022-12-21 13:59 | P.PN ---
Subjective This is a pleasant 87 years old female with multiple medical problems including Asthma, COPD, CVA/TIA, Diabetes Mellitus, GERD/Reflux, Hypertension, atrial fibrillation on eliquis Presents with left lower abdominal pain of 2 days duration , patient describes pain as sharp and radiating [id number] while at rest but, more severe with movement, she didn't lose her appetite with no vomiting but she does not have bowel movement for the last 2 days. She denies any urinary symptoms. No headache dizziness weakness or numbness. No chest pain dyspnea or coughing. she denies smoking alcohol or illicit drugs. patient is afebrile and vital signs stable Patient has unremarkable labs CBC, INR, BMP and liver enzymes. Lipase normal. Urine analysis is cloudy with large leukocyte esterase. CT of the abdomen and pelvis on admission showing: Diffuse severe colonic diverticulosis with moderate descending colonic diverticulitis, no bowel obstruc tion. multiple bilateral renal cysts with no stone or hydro-necrosis patient was admitted to the general medical floor, she was started on Zosyn and surgical team consult 12/20/2022 Patient is still complaining from left lower quadrant abdominal pain and tenderness with mild guarding She still complained from constipation and she wants some laxative, most likely this is related to narcotics as well as other factors, we started the patient on Colace Advance diet to full liquid diet slowly Continue with pain medication Continue with Lovenox Patient also on Zosyn 12/21/2021 Patient abdominal pain is improving in the left lower quadrant, no vomiting omental have bowel movement yet. She tolerates liquid diet She is vital signs stable, afebrile Creatinine went up to 1.3 and we are going to consult nephrology team. Repeat urine analysis and check a bladder scan Objective - Vital Signs Vital signs: Vital Signs Temp 98.0 F 12/21/22 07:30 Pulse 76 12/21/22 07:30 Resp 18 12/21/22 08:47 BP 116/70 12/21/22 07:30 Pulse Ox 98 12/21/22 07:30 FiO2 Intake & Output 12/20/22 12/21/22 12/21/22 18:59 06:59 18:59 Intake Total 425 550 Balance 425 550 Intake: Oral 425 550 Other: # Voids 2 2 - Exam GENERAL: The patient is alert and oriented x3, not in any acute distress. Well developed, well nourished. HEENT: Pupils are round and equally reacting to light. EOMI. No scleral icterus. No conjunctival pallor. Normocephalic, atraumatic. No pharyngeal erythema. No thyromegaly. CARDIOVASCULAR: S1 and S2 present. No murmurs, rubs, or gallops. PULMONARY: Chest is clear to auscultation, no wheezing or crackles. -ABDOMEN: Soft, LLQ tenderness with mild guarding but no rebound tenderness tended, normoactive bowel sounds. No palpable organomegaly. MUSCULOSKELETAL: No joint swelling or deformity. EXTREMITIES: No cyanosis, clubbing, or pedal edema. NEUROLOGICAL: Gross neurological examination did not reveal any focal deficits. SKIN: No rashes. no petechiae. - Labs CBC & Chem 7: 12/21/22 03:36 12/21/22 03:36 Labs: Abnormal Lab Results - Last 24 Hours (Table) 12/21/22 12/21/22 Range/Units 03:36 03:36 RBC 3.99 L (4.10-5.20) X 10*6/uL Hgb 11.0 L (12.0-15.0) g/dL Hct 35.4 L (37.2-46.3) % MCHC 31.1 L (32.0-37.0) g/dL RDW 14.6 H (11.5-14.5) % Eosinophils # 0.53 H (0.04-0.35) X 10*3/uL Chloride 110 H (96-109) mmol/L BUN 8.0 L (9.0-27.0) mg/dL Est GFR (CKD-EPI)AfAm 43.0 L (60.0-200.0) Est GFR (CKD-EPI)NonAf 37.1 L (60.0-200.0) BUN/Creatinine Ratio 6.15 L (12.00-20.00) Ratio Microbiology - Last 24 Hours (Table) 12/18/22 13:41 Urine Culture - Final Urine,Voided Assessment and Plan Assessment: Acute diverticulitis acute kidney injury Diabetes mellitus Hypertension atrial fibrillation on eliquis Multiple bilateral renal cysts History of GERD History of CVA/TIA Assessment/COPD, not an active issue Plan: Continue with bowel rest and advanced diet as tolerated, currently on liquid diet An management IV fluids Continue with Zosyn Surgery consult Check bladder scan, nephrology consult Labs and medication were reviewed.. Continue same treatment. Continue with symptomatic treatment. Resume home medication. Monitor labs and vitals. DVT and GI prophylaxis. Further recommendations as per clinical course of the patient DVT prophylaxis: eliquis GI Prophylaxis: Pepcid PT/OT: Pending Prognosis is guarded
[2022-12-21] MEDS: MORPHINE SULFATE 4 MG/ML SYRINGE IVP PRN (19:38)
[2022-12-21 19:40] LABS: Appearance,Urine Clear (Clear); Bilirubin,Urine Negative (Negative); Blood,Urine Negative (Negative); Color,Urine Yellow; Glucose,Urine (UA) Negative (Negative); Ketones,Urine Negative (Negative); Leukocyte Esterase,Urine Negative (Negative); Nitrite,Urine Negative (Negative); PH, Urine 5.5 (5.0-8.0); Protein,Urine Negative (Negative); Specific Gravity,Urine 1.014 (1.001-1.035)
--- NOTE | 2022-12-21 20:01 | P.PN ---
Subjective Progress Note Date: 12/21/22 CHIEF COMPLAINT: Diverticulitis HISTORY OF PRESENT ILLNESS: The patient is a 87-year-old female who comes in with left lower quadrant abdominal pain due to diverticulitis. She reports her pain is tolerable. She reports intolerance to dairy products and lactose. ROS: No reports of nausea and vomiting. No fevers or chills. No new chest pain. No productive sputum. Has dementia. Obesity due to excess calories, BMI 31.9 PHYSICAL EXAM: VITAL SIGNS: Reviewed CONSTITUTIONAL: Well developed and in no acute distress. EYES: Conjuctivae without sclera icterus. Extraocular movements grossly intact. HEAD, EARS, NOSE, THROAT: Moist buccal mucosa. Head is atraumatic, normocephalic. Hears conversational speech. No nasal drainage. RESPIRATORY: Non-labored respirations and equal bilateral excursions. CARDIOVASCULAR: Palpable 2+ radial pulses. ABDOMEN: No peritonitis. Minimal left lower quadrant tenderness. MUSCULOSKELETAL: No gross deformity of the lower extremities noted. No clubbing. No cyanosis. SKIN: Good skin turgor. Well perfused. NEUROLOGIC: Cranial nerves II through XII grossly intact. No focal or lateralizing signs. PSYCH: Appropriate affect. Alert and oriented to person, place and time. CLINICAL LABS: Reviewed. WBC normal. Hemoglobin 10.8-11.0, anemia ASSESSMENT: 1. Diverticulitis with left lower quadrant abdominal 2. Chronic iron deficiency anemia 3. Obesity due to excess calories, BMI 31.9 4. Dementia PLAN: 1. Diet adjusted to full liquid diet with lactose-free 2. Continue antibiotics 3. Continue hospitalization Objective - Vital Signs Vital signs: Vital Signs Temp 98.4 F 12/21/22 14:00 Pulse 72 12/21/22 14:00 Resp 17 12/21/22 14:00 BP 128/80 12/21/22 14:00 Pulse Ox 95 12/21/22 14:00 FiO2 Intake & Output 12/21/22 12/21/22 12/22/22 06:59 18:59 07:59 Intake Total 875 Balance 875 Intake: Oral 875 Other: # Voids 2 2 - Labs CBC & Chem 7: 12/21/22 03:36 12/21/22 03:36 Labs: Abnormal Lab Results - Last 24 Hours (Table) 12/21/22 12/21/22 Range/Units 03:36 03:36 RBC 3.99 L (4.10-5.20) X 10*6/uL Hgb 11.0 L (12.0-15.0) g/dL Hct 35.4 L (37.2-46.3) % MCHC 31.1 L (32.0-37.0) g/dL RDW 14.6 H (11.5-14.5) % Eosinophils # 0.53 H (0.04-0.35) X 10*3/uL Chloride 110 H (96-109) mmol/L BUN 8.0 L (9.0-27.0) mg/dL Est GFR (CKD-EPI)AfAm 43.0 L (60.0-200.0) Est GFR (CKD-EPI)NonAf 37.1 L (60.0-200.0) BUN/Creatinine Ratio 6.15 L (12.00-20.00) Ratio
[2022-12-21] MEDS: traZODone HCL 50 MG TAB PO SCH (21:01)
[2022-12-22] MEDS: HYDROcodone/APAP 5-325MG 1 EACH TAB PO PRN ×2 (05:26→15:39)
[2022-12-22] MEDS: LEVOTHYROXINE 25 MCG TAB PO SCH (05:26)
[2022-12-22] MEDS: SYMBICORT 80-4.5 MCG INHALER INHALATION SCH ×2 (08:13→19:45)
[2022-12-22] MEDS: TIOTROPIUM 2.5 MCG INHALER INHALATION SCH (08:13)
[2022-12-22] MEDS: SPIRONOLACTONE 25 MG TAB PO SCH (08:47)
[2022-12-22] MEDS: carvediloL 3.125 MG TAB PO SCH ×2 (08:48→19:49)
[2022-12-22] MEDS: DONEPEZIL 10 MG TAB PO SCH (08:48)
[2022-12-22] MEDS: ENOXAPARIN 40 MG/0.4 ML SYRINGE SQ SCH ×2 (08:49→19:49)
[2022-12-22] MEDS: BRIMONIDINE TARTRATE 0.2% DROPS 5 ML BTL BOTH EYES SCH ×3 (08:50→19:50)
[2022-12-22] MEDS: DORZOLAMIDE-TIMOLOL 2.23%/0.68 10ML BTL LEFT EYE SCH ×2 (08:50→19:49)
[2022-12-22] MEDS: PIPERACILLIN-TAZOBACTAM 3.375 GM in SODIUM CHLORIDE 0.9% 100 ML IVPB SCH ×2 (08:54→15:40)
[2022-12-22 09:10] LABS: African American GFR (CKD) 44.3 (60.0-200.0); Anion Gap 9.4 mmol/L (10.00-18.00); BUN/Creat Ratio 5.59 Ratio (12.00-20.00); Blood Urea Nitrogen 7.1 mg/dL (9.0-27.0); Calcium 8.6 mg/dL (8.7-10.3); Carbon Dioxide 22.7 mmol/L (20.0-27.5); Non-African American GFR(CKD) 38.2 (60.0-200.0); Potassium 3.6 mmol/L (3.5-5.5)
--- NOTE | 2022-12-22 10:25 | P.NPCON ---
History of Present Illness - Reason for Consult Consult date: 12/22/22 acute renal failure - Chief Complaint Diverticulitis - History of Present Illness This is an 87-year-old female seen in consultation because of acute kidney injury and kidney cysts seen on computed tomography scan She came in because of abdominal pain for 2 or 3 days prior to admission a computed tomography scan shows diverticulitis. Additionally showed multiple cysts in both kidneys. Patient denies any nausea vomiting she is chronically constipated. She did not have any fever chills dizziness chest pain shortness of breath. No history of hematuria kidney stones no family history of kidney disease. She is known with COPD diabetes atrial fibrillation. 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 Past Medical History Past Medical History: Asthma, COPD, CVA/TIA, Diabetes Mellitus, GERD/Reflux, Hypertension Additional Past Medical History / Comment(s): glaucoma, arthritis History of Any Multi-Drug Resistant Organisms: None Reported Past Surgical History: Back Surgery, Section, Hysterectomy, Orthopedic Surgery Additional Past Surgical History / Comment(s): pituitary tumor removed, lumbar laminectomy Past Anesthesia/Blood Transfusion Reactions: No Reported Reaction Past Psychological History: No Psychological Hx Reported Smoking Status: Former smoker Past Alcohol Use History: None Reported Past Drug Use History: None Reported - Past Family History Father History Unknown: Yes Mother History Unknown: Yes Medications and Allergies Home Medications Medication Instructions Recorded Confirmed Type Apixaban [Eliquis] 2.5 mg PO BID 12/23/20 12/18/22 History Brimonidine Tartrate [Alphagan P 1 drops BOTH EYES TID 12/23/20 12/18/22 History 0.1% Ophth Soln] carvediloL [Coreg] 3.125 mg PO BID 12/23/20 12/18/22 History Levothyroxine Sodium [Synthroid] 25 mcg PO DAILY 10/16/22 12/18/22 History Rivastigmine Tartrate [Exelon] 3 mg PO BID 10/16/22 12/18/22 History Spironolactone [Aldactone] 50 mg PO DAILY 10/16/22 12/18/22 History traMADol HCL 50 mg PO BID 10/16/22 12/18/22 History Albuterol Sulfate [Proair Hfa] 2 puff INHALATION RT-Q4H PRN 12/18/22 12/18/22 History Aspirin EC [Ecotrin Low Dose] 81 mg PO DAILY 12/18/22 12/18/22 History Dorzolamide-Timol 2.23%/0.68% 1 drop LEFT EYE BID 12/18/22 12/18/22 History [Cosopt] Fluticasone/Umeclidin/Vilanter 1 puff INHALATION RT-DAILY 12/18/22 12/18/22 History [Trelegy Ellipta 200-62.5-25] Meclizine [Antivert] 25 mg PO TID PRN 12/18/22 12/18/22 History traMADol HCL 50 mg PO Q6H PRN 12/18/22 12/18/22 History traZODone HCL [Desyrel] 50 mg PO HS 12/18/22 12/18/22 History Allergies Allergy/AdvReac Type Severity Reaction Status Date / Time Influenza Virus Vaccines Allergy Unknown Verified 12/18/22 15:12 Iodinated Contrast Media Allergy Unknown Verified 12/18/22 15:12 Sulfa (Sulfonamide Allergy Unknown Verified 12/18/22 15:12 Antibiotics) Physical Exam Vitals: Vital Signs Temp Pulse Resp BP Pulse Ox 12/22/22 07:38 98.2 F 78 18 134/75 97 12/22/22 01:52 98.2 F 66 17 125/71 96 12/21/22 20:00 98.0 F 72 17 131/71 95 12/21/22 14:00 98.4 F 72 17 128/80 95 Intake and Output 12/21/22 12/22/22 12/22/22 21:59 06:59 14:59 Intake Total Balance Intake: Oral Other: # Voids On exam he is awake alert oriented comfortable HEENT exam no JVP neck is supple no facial asymmetry Lungs clear to auscultation good air entry bilaterally Heart sounds unremarkable Abdomen soft nontender except for mild tenderness on the left flank No renal angle tenderness Extremity exam was no edema Neurologically awake alert oriented. Results - Lab Results Most recent lab results Calcium 8.6 mg/dL (8.7-10.3) L 12/22/22 05:04 12/21/22 03:36 12/22/22 05:04 Assessment and Plan Assessment: Impression 1. Acute kidney injury secondary to diverticulitis. Creatinine went up from 0. 95-1.3. Urine output is not been documented. 2. Bilateral kidney cysts on computed tomography scan, age-related, benign 3. Admitted with abdominal pain and diverticulitis currently stable 4. History of diabetes. Urinalysis shows negative proteinuria, 5. UA shows 112 WBCs and 2 RBCs, asymptomatic though and cultures are negative. 6. History of COPD 7. Atrial fibrillation Recommendation 1. Start IV fluids lactated Ringer's at 75 mL an hour 2. Maintain current medications including Coreg 3. Patient is on spironolactone watch potassium Thank you for this consultation and will continue to follow
--- NOTE | 2022-12-22 11:57 | P.PN ---
Subjective This is a pleasant 87 years old female with multiple medical problems including Asthma, COPD, CVA/TIA, Diabetes Mellitus, GERD/Reflux, Hypertension, atrial fibrillation on eliquis Presents with left lower abdominal pain of 2 days duration , patient describes pain as sharp and radiating [id number] while at rest but, more severe with movement, she didn't lose her appetite with no vomiting but she does not have bowel movement for the last 2 days. She denies any urinary symptoms. No headache dizziness weakness or numbness. No chest pain dyspnea or coughing. she denies smoking alcohol or illicit drugs. patient is afebrile and vital signs stable Patient has unremarkable labs CBC, INR, BMP and liver enzymes. Lipase normal. Urine analysis is cloudy with large leukocyte esterase. CT of the abdomen and pelvis on admission showing: Diffuse severe colonic diverticulosis with moderate descending colonic diverticulitis, no bowel obstruc tion. multiple bilateral renal cysts with no stone or hydro-necrosis patient was admitted to the general medical floor, she was started on Zosyn and surgical team consult 12/20/2022 Patient is still complaining from left lower quadrant abdominal pain and tenderness with mild guarding She still complained from constipation and she wants some laxative, most likely this is related to narcotics as well as other factors, we started the patient on Colace Advance diet to full liquid diet slowly Continue with pain medication Continue with Lovenox Patient also on Zosyn 12/21/2021 Patient abdominal pain is improving in the left lower quadrant, no vomiting omental have bowel movement yet. She tolerates liquid diet She is vital signs stable, afebrile Creatinine went up to 1.3 and we are going to consult nephrology team. Repeat urine analysis and check a bladder scan 12/22/2022 Patient generally doing well, she has less left lower quadrant abdominal pain, she tolerates liquid diet, no bowel movement.. Creatinine stable at 1.3 Currently she is "8 25 mL/h, Aldactone was held. She continued on Zosyn also she is on Lovenox 40 mg twice daily which he'll be resumed into eliquis if no surgical intervention Objective - Vital Signs Vital signs: Vital Signs Temp 98.2 F 12/22/22 07:38 Pulse 78 12/22/22 07:38 Resp 18 12/22/22 08:00 BP 134/75 12/22/22 07:38 Pulse Ox 97 12/22/22 07:38 FiO2 Intake & Output 12/21/22 12/22/22 12/22/22 17:59 06:59 18:59 Intake Total 200 Balance 200 Intake: Oral 200 Other: # Voids - Exam GENERAL: The patient is alert and oriented x3, not in any acute distress. Well developed, well nourished. HEENT: Pupils are round and equally reacting to light. EOMI. No scleral icterus. No conjunctival pallor. Normocephalic, atraumatic. No pharyngeal erythema. No thyromegaly. CARDIOVASCULAR: S1 and S2 present. No murmurs, rubs, or gallops. PULMONARY: Chest is clear to auscultation, no wheezing or crackles. -ABDOMEN: Soft, LLQ tenderness with mild guarding but no rebound tenderness ten ded, normoactive bowel sounds. No palpable organomegaly. MUSCULOSKELETAL: No joint swelling or deformity. EXTREMITIES: No cyanosis, clubbing, or pedal edema. NEUROLOGICAL: Gross neurological examination did not reveal any focal deficits. SKIN: No rashes. no petechiae. - Labs CBC & Chem 7: 12/21/22 03:36 12/22/22 05:04 Labs: Abnormal Lab Results - Last 24 Hours (Table) 12/22/22 Range/Units 05:04 Anion Gap 9.40 L (10.00-18.00) mmol/L BUN 7.1 L (9.0-27.0) mg/dL Est GFR (CKD-EPI)AfAm 44.3 L (60.0-200.0) Est GFR (CKD-EPI)NonAf 38.2 L (60.0-200.0) BUN/Creatinine Ratio 5.59 L (12.00-20.00) Ratio Calcium 8.6 L (8.7-10.3) mg/dL Assessment and Plan Assessment: Acute diverticulitis acute kidney injury Diabetes mellitus Hypertension atrial fibrillation on eliquis Multiple bilateral renal cysts History of GERD History of CVA/TIA Assessment/COPD, not an active issue Plan: Continue with bowel rest and advanced diet as tolerated, currently on liquid diet An management IV fluids Continue with Zosyn Surgery consult Labs and medication were reviewed.. Continue same treatment. Continue with symptomatic treatment. Resume home medication. Monitor labs and vitals. DVT and GI prophylaxis. Further recommendations as per clinical course of the patient DVT prophylaxis: eliquis GI Prophylaxis: Pepcid PT/OT: Pending Prognosis is guarded
[2022-12-22] MEDS: LACTATED RINGERS 1,000 ML IV SCH (12:14)
[2022-12-22] MEDS: MORPHINE SULFATE 4 MG/ML SYRINGE IVP PRN (19:12)
[2022-12-22] MEDS: traZODone HCL 50 MG TAB PO SCH (19:50)
--- NOTE | 2022-12-22 20:43 | P.PN ---
Subjective Progress Note Date: 12/22/22 CHIEF COMPLAINT: Diverticulitis HISTORY OF PRESENT ILLNESS: The patient is a 87-year-old female who comes in with left lower quadrant abdominal pain due to diverticulitis. She reports her pain is resolved. She is tolerating liquid diet. ROS: No reports of nausea and vomiting. No fevers or chills. No new chest pain. No productive sputum. Has dementia. Obesity due to excess calories, BMI 31.9 PHYSICAL EXAM: VITAL SIGNS: Reviewed CONSTITUTIONAL: Well developed and in no acute distress. EYES: Conjuctivae without sclera icterus. Extraocular movements grossly intact. HEAD, EARS, NOSE, THROAT: Moist buccal mucosa. Head is atraumatic, normocephalic. Hears conversational speech. No nasal drainage. RESPIRATORY: Non-labored respirations and equal bilateral excursions. CARDIOVASCULAR: Palpable 2+ radial pulses. ABDOMEN: No peritonitis. Minimal left lower quadrant tenderness. MUSCULOSKELETAL: No gross deformity of the lower extremities noted. No clubbing. No cyanosis. SKIN: Good skin turgor. Well perfused. NEUROLOGIC: Cranial nerves II through XII grossly intact. No focal or lateralizing signs. PSYCH: Appropriate affect. Alert and oriented to person, place and time. CLINICAL LABS: Reviewed. Creatinine is stable. STUDIES: CT of the abdomen and pelvis independently reviewed shows sigmoid diverticulitis without free air. ASSESSMENT: 1. Diverticulitis with left lower quadrant abdominal 2. Chronic iron deficiency anemia 3. Obesity due to excess calories, BMI 31.9 4. Dementia PLAN: 1. May advance to low fiber diet. Objective - Vital Signs Vital signs: Vital Signs Temp 97.6 F 12/22/22 20:00 Pulse 76 12/22/22 20:00 Resp 17 12/22/22 20:00 BP 134/74 12/22/22 20:00 Pulse Ox 96 12/22/22 20:00 FiO2 21 12/22/22 19:48 Intake & Output 12/22/22 12/22/22 12/23/22 06:59 18:59 06:59 Intake Total 500 Balance 500 Intake: Oral 500 Other: # Voids 2 1 - Labs CBC & Chem 7: 12/21/22 03:36 12/22/22 05:04 Labs: Abnormal Lab Results - Last 24 Hours (Table) 12/22/22 Range/Units 05:04 Anion Gap 9.40 L (10.00-18.00) mmol/L BUN 7.1 L (9.0-27.0) mg/dL Est GFR (CKD-EPI)AfAm 44.3 L (60.0-200.0) Est GFR (CKD-EPI)NonAf 38.2 L (60.0-200.0) BUN/Creatinine Ratio 5.59 L (12.00-20.00) Ratio Calcium 8.6 L (8.7-10.3) mg/dL
[2022-12-23] MEDS: PIPERACILLIN-TAZOBACTAM 3.375 GM in SODIUM CHLORIDE 0.9% 100 ML IVPB SCH ×3 (00:09→16:01)
[2022-12-23] MEDS: LACTATED RINGERS 1,000 ML IV SCH ×2 (05:24→13:12)
[2022-12-23] MEDS: LEVOTHYROXINE 25 MCG TAB PO SCH (05:24)
[2022-12-23] MEDS: ENOXAPARIN 40 MG/0.4 ML SYRINGE SQ SCH ×2 (08:17→21:29)
[2022-12-23] MEDS: DONEPEZIL 10 MG TAB PO SCH (08:17)
[2022-12-23] MEDS: carvediloL 3.125 MG TAB PO SCH ×2 (08:18→21:29)
[2022-12-23] MEDS: DORZOLAMIDE-TIMOLOL 2.23%/0.68 10ML BTL LEFT EYE SCH ×2 (08:18→21:30)
[2022-12-23] MEDS: BRIMONIDINE TARTRATE 0.2% DROPS 5 ML BTL BOTH EYES SCH ×3 (08:18→21:30)
[2022-12-23] MEDS: SYMBICORT 80-4.5 MCG INHALER INHALATION SCH ×2 (08:24→20:27)
[2022-12-23] MEDS: TIOTROPIUM 2.5 MCG INHALER INHALATION SCH (08:25)
[2022-12-23 08:26] LABS: Basophils % (A) 1 %; Eosinophils # (A) 0.3 k/uL (0-0.7); Eosinophils % (A) 5 %; HCT 36.1 % (34.0-46.0); HGB 11.7 gm/dL (11.4-16.0); Lymphocytes # (A) 1.6 k/uL (1.0-4.8); Lymphocytes % (A) 28 %; MCH 28.8 pg (25.0-35.0); MCHC 32.4 g/dL (31.0-37.0); Mean Platelet Volume 7.5; Monocytes # (A) 0.5 k/uL (0-1.0); Monocytes % (A) 8 %; Neutrophils # (A) 3.2 k/uL (1.3-7.7); Neutrophils % (A) 55 %; Platelet Count 322 k/uL (150-450); RBC 4.05 m/uL (3.80-5.40); RDW 14.3 % (11.5-15.5); WBC 5.8 k/uL (3.8-10.6)
[2022-12-23 08:53] LABS: African American GFR (CKD) 41 (>60 ml/min/1.73 sqM); Anion Gap 10 mmol/L; Blood Urea Nitrogen 8 mg/dL (7-17); Calcium 8.6 mg/dL (8.4-10.2); Carbon Dioxide 23 mmol/L (22-30); Chloride 111 mmol/L (98-107); Glucose 111 mg/dL (74-99); Non-African American GFR(CKD) 36 (>60 ml/min/1.73 sqM); Potassium 3.8 mmol/L (3.5-5.1); Sodium 144 mmol/L (137-145)
[2022-12-23] MEDS ORDERED: LACTULOSE 20 GM/30 ML CUP PO ONE (10:15)
--- NOTE | 2022-12-23 11:05 | P.PN ---
Subjective Progress Note Date: 12/23/22 CHIEF COMPLAINT: Diverticulitis HISTORY OF PRESENT ILLNESS: Patient reports she is feeling better. Her left lower quadrant pain has improved. She is currently on a low fiber diet. She does complain of constipation she has had no bowel movement for 5 days. She is having flatus. She describes minimal discomfort in the left lower quadrant. Denies any nausea vomiting. Afebrile. WBC is 5.8 he should be 11.7 Patient seen and examined with Dr. mcclain PHYSICAL EXAM: VITAL SIGNS: Reviewed. GENERAL: Well-developed in no acute distress. HEENT: No sclera icterus. Extraocular movements grossly intact. Moist buccal mucosa. Head is atraumatic, normocephalic. ABDOMEN: Soft. Nondistended. Mild discomfort left lower quadrant NEUROLOGIC: Alert and oriented. Cranial nerves II through XII grossly intact. ASSESSMENT: 1. Acute moderate descending colonic diverticulitis 2. Constipation PLAN: -Give 1 dose of lactulose for constipation -Continue low fiber diet -Recommend antibiotics at discharge -Encourage patient to ambulate [employer] note has been reviewed by physician. Signing provider agrees with the documented findings, assessment, and plan of care. Objective - Vital Signs Vital signs: Vital Signs Temp 98.2 F 12/23/22 07:31 Pulse 79 12/23/22 07:31 Resp 17 12/23/22 07:31 BP 134/80 12/23/22 07:31 Pulse Ox 96 12/23/22 08:25 FiO2 21 12/22/22 19:48 Intake & Output 12/22/22 12/23/22 12/23/22 18:59 06:59 18:59 Intake Total 500 Balance 500 Intake: Oral 500 Other: # Voids 2 2 - Labs CBC & Chem 7: 12/23/22 08:08 12/23/22 08:08 Labs: Abnormal Lab Results - Last 24 Hours (Table) 12/23/22 Range/Units 08:08 Chloride 111 H (98-107) mmol/L Creatinine 1.35 H (0.52-1.04) mg/dL Glucose 111 H (74-99) mg/dL
--- NOTE | 2022-12-23 12:24 | P.PN ---
Subjective Patient is seen for follow-up for acute kidney injury. Renal function is stable with serum creatinine staying at about 1.3 mg/dL Patient has been voiding. Blood pressure has not been low Maintained on IV fluids and IV antibiotics. Objective - Vital Signs Vital signs: Vital Signs Temp 98.2 F 12/23/22 07:31 Pulse 79 12/23/22 07:31 Resp 17 12/23/22 07:31 BP 134/80 12/23/22 07:31 Pulse Ox 96 12/23/22 08:25 FiO2 21 12/22/22 19:48 Intake & Output 12/22/22 12/23/22 12/23/22 18:59 06:59 18:59 Intake Total 500 Balance 500 Intake: Oral 500 Other: # Voids 2 2 - Exam Patient is awake, comfortable, no acute distress Examination of the heart S1 and S2 Examination the lungs bilateral breath sounds are heard Abdomen is soft nontender Examination lower extremity shows no significant edema - Labs CBC & Chem 7: 12/23/22 08:08 12/23/22 08:08 Labs: Abnormal Lab Results - Last 24 Hours (Table) 12/23/22 Range/Units 08:08 Chloride 111 H (98-107) mmol/L Creatinine 1.35 H (0.52-1.04) mg/dL Glucose 111 H (74-99) mg/dL Assessment and Plan Assessment: 1. Acute kidney injury secondary to diverticulitis. Creatinine went up from 0.95-1.3. CT shows no evidence of hydronephrosis. UA is benign. Currently maintained on IV fluids 2. Bilateral kidney cysts on computed tomography scan, age-related, benign 3. Admitted with abdominal pain and diverticulitis currently stable 4. History of diabetes. Urinalysis shows negative proteinuria, 5. UA shows 112 WBCs and 2 RBCs, asymptomatic though and cultures are negative. 6. History of COPD 7. Atrial fibrillation Plan: Continue with IV fluids Repeat labs in a.m. Avoid nephrotoxic agents Monitor urine output accurately
--- NOTE | 2022-12-23 12:55 | CDI ---
Documentation Clarification Form Date: 12/23/2022 12:36:44 PM From: Anjali Strong RN, CCDS Admit Date: 12/18/2022 5:01:00 PM Patient Name: Elsa Bartlett Visit Number: [id number] Discharge Date: ATTENTION: The Clinical Documentation Specialists (CDI) and [facility] Coding Staff appreciate your assistance in clarifying documentation. Please respond to the clarification below the line at the bottom and electronically sign. The CDI & [facility] Coding staff will review the response and follow-up if needed. Please note: Queries are made part of the Legal Health Record. If you have any questions, please contact the author of this message via ITS. Dr. Roman E Sheet Atrial Fibrillation is documented in the H/P and subsequent progress notes. Additional clarification regarding the type of atrial fibrillation is requested. History/Risk Factors: Asthma, COPD, DM, HTN, Former smoker, Atrial Fibrillation Clinical Indicators: 87-year-old female present with complaints of abdominal pain. She has history of atrial fibrillation with ongoing treatment on Eliquis. Treatment: Eliquis 2.5 MG PO BID (hold per orders) Please clarify the type of atrial fibrillation, if known: [ ] Chronic [ ] Permanent [ ] Paroxysmal [ ] Persistent [ ] Other, please specify [ ] Unable to determine (Template Last Revised: February 2021) Chronic MTDD
[2022-12-23] MEDS: traZODone HCL 50 MG TAB PO SCH (21:29)
[2022-12-24] MEDS: PIPERACILLIN-TAZOBACTAM 3.375 GM in SODIUM CHLORIDE 0.9% 100 ML IVPB SCH ×2 (00:15→09:24)
[2022-12-24] MEDS: LACTATED RINGERS 1,000 ML IV SCH (02:00)
[2022-12-24] MEDS: LEVOTHYROXINE 25 MCG TAB PO SCH (05:23)
[2022-12-24 08:38] VITALS: TEMP 98.4
[2022-12-24] MEDS: BRIMONIDINE TARTRATE 0.2% DROPS 5 ML BTL BOTH EYES SCH (09:25)
[2022-12-24] MEDS: carvediloL 3.125 MG TAB PO SCH (09:25)
[2022-12-24] MEDS: ENOXAPARIN 40 MG/0.4 ML SYRINGE SQ SCH (09:25)
[2022-12-24] MEDS: DONEPEZIL 10 MG TAB PO SCH (09:25)
[2022-12-24] MEDS: DORZOLAMIDE-TIMOLOL 2.23%/0.68 10ML BTL LEFT EYE SCH (09:25)
[2022-12-24 09:32] LABS: Anion Gap 12.5 mmol/L (10.00-18.00); BUN/Creat Ratio 5.85 Ratio (12.00-20.00); Blood Urea Nitrogen 7.6 mg/dL (9.0-27.0); Calcium 8.9 mg/dL (8.7-10.3); Carbon Dioxide 20.5 mmol/L (20.0-27.5); Non-African American GFR(CKD) 37.1 (60.0-200.0); Potassium 3.9 mmol/L (3.5-5.5)
[2022-12-24] MEDS: SYMBICORT 80-4.5 MCG INHALER INHALATION SCH (09:43)
[2022-12-24] MEDS: TIOTROPIUM 2.5 MCG INHALER INHALATION SCH (09:43)
[2022-12-24] MEDS ORDERED: SODIUM CHLORIDE 0.45% 1,000 ML IV SCH (09:45)
--- NOTE | 2022-12-24 10:11 | P.PN ---
Subjective Progress Note Date: 12/24/22 CHIEF COMPLAINT: Diverticulitis HISTORY OF PRESENT ILLNESS: Patient continues to feel better. She denies any abdominal pain. She did have 2 bowel movements. She denies any nausea or vomiting. She is tolerating diet. Afebrile. She feels ready for discharge. WBC 5.8 sodium is 146 potassium 3.9 creatinine 1.3 Patient seen and examined with Dr. mcclain PHYSICAL EXAM: VITAL SIGNS: Reviewed. GENERAL: Well-developed in no acute distress. HEENT: No sclera icterus. Extraocular movements grossly intact. Moist buccal mucosa. Head is atraumatic, normocephalic. ABDOMEN: Soft. Nondistended. NEUROLOGIC: Alert and oriented. Cranial nerves II through XII grossly intact. ASSESSMENT: 1. Acute moderate descending colonic diverticulitis 2. Constipation PLAN: -Patient can be discharge from surgical standpoint -Continue oral antibiotics at discharge -Continue low fiber diet -Continue a good bowel regimen. Avoid constipation. Physician Engineer Sergeant note has been reviewed by physician. Signing provider agrees with the documented findings, assessment, and plan of care. Objective - Vital Signs Vital signs: Vital Signs Temp 98.4 F 12/24/22 07:23 Pulse 82 12/24/22 07:23 Resp 18 12/24/22 07:23 BP 162/78 12/24/22 07:23 Pulse Ox 96 12/24/22 09:33 FiO2 21 12/22/22 19:48 Intake & Output 12/23/22 12/24/22 12/24/22 18:59 06:59 18:59 Intake Total 750 Balance 750 Intake: Intake, IV Titration 500 Amount Lactated Ringers 1,000 ml 500 @ 75 mls/hr IV .[id number] [facility] Rx#:[id number] Oral 250 Other: Voiding Method Toilet # Voids 3 1 - Labs CBC & Chem 7: 12/23/22 08:08 12/24/22 04:29 Labs: Abnormal Lab Results - Last 24 Hours (Table) 12/24/22 Range/Units 04:29 Sodium 146 H (135-145) mmol/L Chloride 113 H (96-109) mmol/L BUN 7.6 L (9.0-27.0) mg/dL Est GFR (CKD-EPI)AfAm 43.0 L (60.0-200.0) Est GFR (CKD-EPI)NonAf 37.1 L (60.0-200.0) BUN/Creatinine Ratio 5.85 L (12.00-20.00) Ratio
--- NOTE | 2022-12-24 10:41 | P.PN ---
Subjective Progress Note Date: 12/23/22 This is a pleasant 87 years old female with multiple medical problems including Asthma, COPD, CVA/TIA, Diabetes Mellitus, GERD/Reflux, Hypertension, atrial fibrillation on eliquis Presents with left lower abdominal pain of 2 days duration , patient describes pain as sharp and radiating [id number] while at rest but, more severe with movement, she didn't lose her appetite with no vomiting but she does not have bowel movement for the last 2 days. She denies any urinary symptoms. No headache dizziness weakness or numbness. No chest pain dyspnea or coughing. she denies smoking alcohol or illicit drugs. patient is afebrile and vital signs stable Patient has unremarkable labs CBC, INR, BMP and liver enzymes. Lipase normal. Urine analysis is cloudy with large leukocyte esterase. CT of the abdomen and pelvis on admission showing: Diffuse severe colonic diverticulosis with moderate descending colonic diverticulitis, no bowel obstruction. multiple bilateral renal cysts with no stone or hydro-necrosis patient was admitted to the general medical floor, she was started on Zosyn and surgical team consult 12/20/2022 Patient is still complaining from left lower quadrant abdominal pain and tenderness with mild guarding She still complained from constipation and she wants some laxative, most likely this is related to narcotics as well as other factors, we started the patient on Colace Advance diet to full liquid diet slowly Continue with pain medication Continue with Lovenox Patient also on Zosyn 12/21/2021 Patient abdominal pain is improving in the left lower quadrant, no vomiting omental have bowel movement yet. She tolerates liquid diet She is vital signs stable, afebrile Creatinine went up to 1.3 and we are going to consult nephrology team. Repeat urine analysis and check a bladder scan 12/22/2022 Patient generally doing well, she has less left lower quadrant abdominal pain, she tolerates liquid diet, no bowel movement.. Creatinine stable at 1.3 Currently she is "8 25 mL/h, Aldactone was held. She continued on Zosyn also she is on Lovenox 40 mg twice daily which he'll be resumed into eliquis if no surgical intervention 12/23/2022 Patient is currently resting in bed. Awake alert and oriented. Abdominal pain is much improved. Mainly at the left lower quadrant. Patient was started on low fiber diet. On antibiotics in the form of Zosyn. Next and no complaints of nausea or vomiting. No diarrhea. Patient has been afebrile., Complaints of constipation. Laboratory data showed WBC 5.8 hemoglobin 11.7 and platelets 322 sodium 144 potassium 3.8 chloride 101 bicarb is 23 BUN 18 creatinine 1.35 and blood sugar is 111 General surgery is on board. Objective - Vital Signs Vital signs: Vital Signs Temp 98.5 F 12/23/22 20:53 Pulse 83 12/23/22 20:53 Resp 20 12/23/22 20:53 BP 139/73 12/23/22 20:53 Pulse Ox 93 L 12/23/22 20:53 FiO2 21 12/22/22 19:48 Intake & Output 12/23/22 12/23/22 12/24/22 06:59 18:59 06:59 Other: Voiding Method Toilet # Voids 2 3 - Exam - Exam GENERAL: The patient is alert and oriented x3, not in any acute distress. Well developed, well nourished. HEENT: Pupils are round and equally reacting to light. EOMI. No scleral icterus. No conjunctival pallor. Normocephalic, atraumatic. No pharyngeal erythema. No thyromegaly. CARDIOVASCULAR: S1 and S2 present. No murmurs, rubs, or gallops. PULMONARY: Chest is clear to auscultation, no wheezing or crackles. -ABDOMEN: Soft, LLQ tenderness with mild guarding but no rebound tenderness tended, normoactive bowel sounds. No palpable organomegaly. MUSCULOSKELETAL: No joint swelling or deformity. EXTREMITIES: No cyanosis, clubbing, or pedal edema. NEUROLOGICAL: Gross neurological examination did not reveal any focal deficits. SKIN: No rashes. no petechiae. - Labs CBC & Chem 7: 12/23/22 08:08 12/24/22 04:29 Labs: Abnormal Lab Results - Last 24 Hours (Table) 12/23/22 Range/Units 08:08 Chloride 111 H (98-107) mmol/L Creatinine 1.35 H (0.52-1.04) mg/dL Glucose 111 H (74-99) mg/dL Assessment and Plan Assessment: Acute moderate descending diverticulitis Constipation acute kidney injury Diabetes mellitus2 Hypertension atrial fibrillation on eliquis Multiple bilateral renal cysts History of GERD History of CVA/TIA Assessment/COPD, not an active issue Plan: Patient was started on low fiber diet. Current with IV hydration and stool softeners ordered. Continue with Zosyn Appreciate general surgery recommendations. DVT prophylaxis: keraqumini GI Prophylaxis: Pepcid PT/OT: Pending Prognosis is guarded
[2022-12-24 11:10] VITALS: BMI 31.9
--- NOTE | 2022-12-24 11:52 | P.PN ---
Subjective Patient is seen for follow-up for acute kidney injury. Renal function is stable with serum creatinine staying at about 1.3 mg/dL Patient has been voiding. Blood pressure has not been low Maintained on IV fluids and IV antibiotics. Objective - Vital Signs Vital signs: Vital Signs Temp 98.4 F 12/24/22 07:23 Pulse 82 12/24/22 07:23 Resp 18 12/24/22 07:23 BP 162/78 12/24/22 07:23 Pulse Ox 96 12/24/22 09:33 FiO2 21 12/22/22 19:48 Intake & Output 12/23/22 12/24/22 12/24/22 18:59 06:59 18:59 Intake Total 750 Balance 750 Weight 84.368 kg Intake: Intake, IV Titration 500 Amount Lactated Ringers 1,000 ml 500 @ 75 mls/hr IV .[id number] [facility] Rx#:[id number] Oral 250 Other: Voiding Method Toilet # Voids 3 1 - Exam Patient is awake, comfortable, no acute distress Examination of the heart S1 and S2 Examination the lungs bilateral breath sounds are heard Abdomen is soft nontender Examination lower extremity shows no significant edema - Labs CBC & Chem 7: 12/23/22 08:08 12/24/22 04:29 Labs: Abnormal Lab Results - Last 24 Hours (Table) 12/24/22 Range/Units 04:29 Sodium 146 H (135-145) mmol/L Chloride 113 H (96-109) mmol/L BUN 7.6 L (9.0-27.0) mg/dL Est GFR (CKD-EPI)AfAm 43.0 L (60.0-200.0) Est GFR (CKD-EPI)NonAf 37.1 L (60.0-200.0) BUN/Creatinine Ratio 5.85 L (12.00-20.00) Ratio Assessment and Plan Assessment: 1. Acute kidney injury secondary to diverticulitis. Creatinine went up from 0.95-1.3. CT shows no evidence of hydronephrosis. UA is benign. Currently maintained on IV fluids 2. Bilateral kidney cysts on computed tomography scan, age-related, benign 3. Admitted with abdominal pain and diverticulitis currently stable 4. History of diabetes. Urinalysis shows negative proteinuria, 5. UA shows 112 WBCs and 2 RBCs, asymptomatic though and cultures are ne gative. 6. History of COPD 7. Atrial fibrillation 8. Mild hypernatremia Plan: Continue with IV fluids, changed to half normal saline Repeat labs in a.m. Avoid nephrotoxic agents Monitor urine output accurately
[2022-12-24 15:28] VITALS: BP 146/77; PULSE 88; RESP 20
== END 2022-12-24 15:41 | disposition home or self-care (01) | DRG 392 ==
LOC: EC 12:48 → 4SSUR 17:01 → OBSVTOIN 17:01 → 4SSUR 17:31
PROVIDERS: ADMIT Internal Medicine; ATTEND Internal Medicine
PROC: 05HF33Z Insertion of Infusion Device into Left Cephalic Vein, Percutaneous Approach (ICD-10-PCS; principal; 2022-12-19 13:20)
DX: K57.32 Diverticulitis of large intestine without perforation or abscess without bleeding (principal); N17.9 Acute kidney failure, unspecified; E87.0 Hyperosmolality and hypernatremia; I48.20 Chronic atrial fibrillation, unspecified; E66.9 Obesity, unspecified; T40.605A Adverse effect of unspecified narcotics, initial encounter; N28.1 Cyst of kidney, acquired; E11.9 Type 2 diabetes mellitus without complications; J44.9 Chronic obstructive pulmonary disease, unspecified; K59.03 Drug induced constipation; K21.9 Gastro-esophageal reflux disease without esophagitis; I10 Essential (primary) hypertension; F03.90 Unspecified dementia, unspecified severity, without behavioral disturbance, psychotic disturbance, mood disturbance, and anxiety; H40.9 Unspecified glaucoma; M19.90 Unspecified osteoarthritis, unspecified site; D50.9 Iron deficiency anemia, unspecified; Z88.2 Allergy status to sulfonamides; Z88.7 Allergy status to serum and vaccine; Z91.041 Radiographic dye allergy status; Z87.891 Personal history of nicotine dependence; Z86.73 Personal history of transient ischemic attack (TIA), and cerebral infarction without residual deficits; Z79.899 Other long term (current) drug therapy; Z79.890 Hormone replacement therapy; Z79.82 Long term (current) use of aspirin; Z79.01 Long term (current) use of anticoagulants; Z68.31 Body mass index [BMI] 31.0-31.9, adult; Z71.3 Dietary counseling and surveillance; Z79.891 Long term (current) use of opiate analgesic
CPT/HCPCS: 36410; 36415; 74176; 76937; 80048; 80053; 81001; 81003; 82150; 83605; 83690; 84484; 85025; 85610; 85730; 87086; 94640; 94760; 96361; 96374; 96375; 96376; 99285

== ENCOUNTER 2022-12-29 01:17 | Inpatient (IN) | payer MEDICARE, OTHER ==
[2022-12-29 02:13] LABS: Basophils % (A) 0 %; Eosinophils # (A) 0.4 k/uL (0-0.7); Eosinophils % (A) 6 %; HCT 35.5 % (34.0-46.0); HGB 11.5 gm/dL (11.4-16.0); Lymphocytes # (A) 1.5 k/uL (1.0-4.8); Lymphocytes % (A) 21 %; MCH 28.6 pg (25.0-35.0); MCHC 32.3 g/dL (31.0-37.0); MCV 88.6 fL (80.0-100.0); Mean Platelet Volume 7.7; Monocytes # (A) 0.6 k/uL (0-1.0); Monocytes % (A) 7 %; Neutrophils # (A) 4.7 k/uL (1.3-7.7); Neutrophils % (A) 63 %; Platelet Count 331 k/uL (150-450); RBC 4.01 m/uL (3.80-5.40); RDW 15.1 % (11.5-15.5); WBC 7.5 k/uL (3.8-10.6)
[2022-12-29] MEDS ORDERED: methylPREDNISolone SOD SUCCI 125 MG/2 ML VIAL IV STA (02:13)
[2022-12-29] MEDS ORDERED: FAMOTIDINE 20 MG/2 ML VIAL IV STA (02:13)
[2022-12-29] MEDS ORDERED: diphenhydrAMINE 50 MG/ML 1 ML VIAL IVP STA (02:13)
--- NOTE | 2022-12-29 02:21 | ED ---
General Adult HPI - General Chief complaint: GI Bleed Stated complaint: rectal bleed Time Seen by Provider: 12/29/22 01:26 Source: EMS Mode of arrival: EMS Limitations: no limitations - History of Present Illness Initial comments: Dictation was produced using [employer] dictation software. please excuse any grammatical, word or spelling errors. Chief Complaint: 87-year-old female presents with emergency department with GI bleed History of Present Illness: 87-year-old female she takes and a coagulation medications. She was having a bowel movement just prior to arrival when there was significant amounts of bright blood in the toilet. Patient complaining of some mild rectal discomfort. She agrees recently admitted for colitis. Patient was brought in by EMS. Denies any fevers. States that she just completed her medication treatment for diverticulitis. The ROS documented in this emergency department record has been reviewed and confirmed by me. Those systems with pertinent positive or negative responses have been documented in the HPI. All other systems are other negative and/or noncontributory. PHYSICAL EXAM: General Impression: Alert and oriented x3, not in acute distress HEENT: Normocephalic atraumatic, extra-ocular movements intact, pupils equal and reactive to light bilaterally, mucous membranes moist. Cardiovascular: Heart regular rate and rhythm Chest: Able to complete full sentences, no retractions, no tachypnea Abdomen: abdomen soft, non-tender, non-distended, no organomegaly Musculoskeletal: Pulses present and equal in all extremities, no peripheral edema Motor: no focal deficits noted Neurological: CN II-XII grossly intact, no focal motor or sensory deficits noted Skin: Intact with no visualized rashes Psych: Normal affect and mood Rectal exam: No active bleeding, no external hemorrhoids. Tried residual blood around the anus ED course: 87 yo female presents with bright red blood per rectum. Vital signs upon arrival are within acceptable limits. Nursing notes and chart review was performed Was pt. sent in by a medical professional or institution (, PA, MANAGER COUNCIL, urgent care, hospital, or halfway...) When possible be specific @ -No Did you speak to anyone other than the patient for history (EMS, parent, family, police, friend...)? What history was obtained from this source @ -Family member at the bedside Did you review nursing and triage notes (agree or disagree)? Why? @ -I reviewed and agree with nursing and triage notes Were old charts reviewed (outside hosp., previous admission, EMS record, old EKG, old radiological studies, urgent care reports/EKG's, halfway records)? Report findings @ -No old charts were reviewed Differential Diagnosis (chest pain, altered mental status, abdominal pain women, abdominal pain men, vaginal bleeding, musculoskeletal, weakness, fever, dyspnea, syncope, headache, dizziness, GI bleed, back pain, seizure, CVA, palpatations, mental health)? @ -Differential GI Bleed: Esophageal varices, aortoenteric fistula, Gladys-Gaming, gastritis, peptic ulcer disease, diverticulosis, inflammatory bowel disease, hemorrhoids, fissure, colitis, malignancy, Meckels diverticulum, this is not meant to be an all- inclusive list. EKG interpreted by me (3pts min.). @ -None done X-rays interpreted by me (1pt min.). @ -None done CT interpreted by me (1pt min.). @ -Persisting colitis U/S interpreted by me (1pt. min.). @ -None done What testing was considered but not performed or refused? (CT, X-rays, U/S, labs)? Why? @ -None What meds were considered but not given or refused? Why? @ -None Did you discuss the management of the patient with other professionals (professionals i.e. , PA, MANAGER COUNCIL, lab, RT, psych nurse, social service manager, operations logistics analyst, teacher, credit control officer, case briefer)? Give summary @ -Discussed with hospitalist, even for admission Was smoking cessation discussed for >3mins.? @ -No Was critical care preformed (if so, how long)? @ -No Were there social determinants of health that impacted care today? How? (Homelessness, low income, unemployed, alcoholism, drug addiction, t ransportation, low edu. Level, literacy, decrease access to med. care, [facility], rehab)? @ -No Was there de-escalation of care discussed even if they declined (Discuss DNR or withdrawal of care, Hospice)? DNR status @ -No What co-morbidities impacted this encounter? (DM, HTN, Smoking, COPD, CAD, Cancer, CVA, ARF, Chemo, Hep., AIDS, mental health diagnosis, sleep apnea, morbid obesity)? @ -History of anticoagulation use Was patient admitted / discharged? Hospital course, mention meds given and route, prescriptions, significant lab abnormalities, going to OR and other pertinent info. @ -87-year-old female presents to the emergency department for persistent abdominal pain and GI bleed. She is well-appearing at the bedside. She is on anticoagulation medications. Laboratory evaluation is unremarkable. Patient appears stable at the bedside. CT shows persistent diverticulitis. There is concern of failed outpatient treatment. We do allegedly have GI available to us tomorrow for evaluation. Gen. surgery will also be consulted. Patient agreeable to admission. Undiagnosed new problem with uncertain prognosis? @ -No Drug Therapy requiring intensive monitoring for toxicity (Heparin, Nitro, Insulin, Cardizem)? @ -No Were any procedures done? @ -No Diagnosis/symptom? Acute, or Chronic, or Acute on Chronic? Uncomplicated (without systemic symptoms) or Complicated (systemic symptoms)? @ -1. Acute colitis Side effects of treatment? @ -No Exacerbation, Progression, or Severe Exacerbation? @ -No Poses a threat to life or bodily function? How? (Chest pain, [place], SD, pneumonia, PE, COPD, DKA, ARF, appy, cholecystitis, CVA, Diverticulitis, Homicidal, Suicidal, threat to staff... and all critical care pts) @ -Yes - Related Data Home Medications Medication Instructions Recorded Confirmed Apixaban [Eliquis] 2.5 mg PO BID 12/23/20 12/18/22 Brimonidine Tartrate [Alphagan P 1 drops BOTH EYES TID 12/23/20 12/18/22 0.1% Ophth Soln] carvediloL [Coreg] 3.125 mg PO BID 12/23/20 12/18/22 Levothyroxine Sodium [Synthroid] 25 mcg PO DAILY 10/16/22 12/18/22 Rivastigmine Tartrate [Exelon] 3 mg PO BID 10/16/22 12/18/22 Spironolactone [Aldactone] 50 mg PO DAILY 10/16/22 12/18/22 traMADol HCL 50 mg PO BID 10/16/22 12/18/22 Albuterol Sulfate [Proair Hfa] 2 puff INHALATION RT-Q4H PRN 12/18/22 12/18/22 Aspirin EC [Ecotrin Low Dose] 81 mg PO DAILY 12/18/22 12/18/22 Dorzolamide-Timol 2.23%/0.68% 1 drop LEFT EYE BID 12/18/22 12/18/22 [Cosopt] Fluticasone/Umeclidin/Vilanter 1 puff INHALATION RT-DAILY 12/18/22 12/18/22 [Trelegy Ellipta 200-62.5-25] Meclizine [Antivert] 25 mg PO TID PRN 12/18/22 12/18/22 traMADol HCL 50 mg PO Q6H PRN 12/18/22 12/18/22 traZODone HCL [Desyrel] 50 mg PO HS 12/18/22 12/18/22 Previous Rx's Medication Instructions Recorded Docusate [Colace] 100 mg PO BID PRN #30 cap 12/24/22 Lactulose [Cephulac] 10 gm PO DAILY PRN #300 ml 12/24/22 cefUROXime axetiL [Ceftin] 500 mg PO BID 4 Days #8 tab 12/24/22 metroNIDAZOLE [Flagyl] 500 mg PO TID 4 Days #12 tab 12/24/22 Allergies Allergy/AdvReac Type Severity Reaction Status Date / Time Influenza Virus Vaccines Allergy Unknown Verified 12/18/22 15:12 Iodinated Contrast Media Allergy Unknown Verified 12/18/22 15:12 Sulfa (Sulfonamide Allergy Unknown Verified 12/18/22 15:12 Antibiotics) Review of Systems ROS Statement: Those systems with pertinent positive or pertinent negative responses have been documented in the HPI. ROS Other: All systems not noted in ROS Statement are negative. Past Medical History Past Medical History: Asthma, COPD, CVA/TIA, Diabetes Mellitus, GERD/Reflux, Hypertension Additional Past Medical History / Comment(s): glaucoma, arthritis History of Any Multi-Drug Resistant Organisms: None Reported Past Surgical History: Back Surgery, Section, Hysterectomy, Orthopedic Surgery Additional Past Surgical History / Comment(s): pituitary tumor removed, lumbar laminectomy Past Anesthesia/Blood Transfusion Reactions: No Reported Reaction Past Psychological History: No Psychological Hx Reported Smoking Status: Former smoker Past Alcohol Use History: None Reported Past Drug Use History: None Reported - Past Family History Father History Unknown: Yes Mother History Unknown: Yes General Exam Limitations: no limitations Course Vital Signs 12/29/22 12/29/22 12/29/22 01:18 01:22 01:23 Temperature 97.8 F Pulse Rate 91 82 Respiratory 18 Rate Blood Pressure 164/94 152/73 O2 Sat by Pulse 97 Oximetry Medical Decision Making - Lab Data Result diagrams: 12/29/22 01:57 12/29/22 01:57 Lab Results 12/29/22 12/29/22 12/29/22 Range/Units 01:57 01:57 01:57 WBC 7.5 (3.8-10.6) k/uL RBC 4.01 (3.80-5.40) m/uL Hgb 11.5 (11.4-16.0) gm/dL Hct 35.5 (34.0-46.0) % MCV 88.6 (80.0-100.0) fL MCH 28.6 (25.0-35.0) pg MCHC 32.3 (31.0-37.0) g/dL RDW 15.1 (11.5-15.5) % Plt Count 331 (150-450) k/uL MPV 7.7 Neutrophils % 63 % Lymphocytes % 21 % Monocytes % 7 % Eosinophils % 6 % Basophils % 0 % Neutrophils # 4.7 (1.3-7.7) k/uL Lymphocytes # 1.5 (1.0-4.8) k/uL Monocytes # 0.6 (0-1.0) k/uL Eosinophils # 0.4 (0-0.7) k/uL Basophils # 0.0 (0-0.2) k/uL PT 11.9 (9.0-12.0) sec INR 1.1 (<1.2) APTT 25.7 (22.0-30.0) sec Sodium 140 (137-145) mmol/L Potassium 4.0 (3.5-5.1) mmol/L Chloride 105 (98-107) mmol/L Carbon Dioxide 24 (22-30) mmol/L Anion Gap 11 mmol/L BUN 10 (7-17) mg/dL Creatinine 0.95 (0.52-1.04) mg/dL Est GFR (CKD-EPI)AfAm 63 (>60 ml/min/1.73 sqM) Est GFR (CKD-EPI)NonAf 55 (>60 ml/min/1.73 sqM) Glucose 99 (74-99) mg/dL Calcium 8.2 L (8.4-10.2) mg/dL Disposition Clinical Impression: GI bleed Disposition: ADMITTED IP TO THIS [facility] Condition: Serious Referrals: Dani Salgado MD [Primary Care Provider] - 1-2 days Decision Time: 04:15
[2022-12-29 02:26] LABS: Calcium 8.2 mg/dL (8.4-10.2)
[2022-12-29 02:41] LABS: INR 1.1 (<1.2); Partial Thromboplastin Time 25.7 sec (22.0-30.0); Prothrombin Time 11.9 sec (9.0-12.0)
--- NOTE | 2022-12-29 03:54 | CT ---
EXAMINATION TYPE: CT abdomen pelvis w con DATE OF EXAM: 12/29/2022 COMPARISON: 12/18/2022 HISTORY: abd pain CT DLP: 1334.9 mGycm Automated exposure control for dose reduction was used. CONTRAST: Performed with IV Contrast, patient injected with 80 mL of Isovue 300. Images obtained from the diaphragm to the floor of the pelvis with IV contrast. There are small bilateral pleural effusions. Heart is enlarged. No pericardial effusion. There is inf iltrate and atelectasis at both posterior lung bases. Liver spleen pancreas gallbladder appear intact. The bile ducts are not dilated. The stomach is intac t. There is no adrenal mass. Kidneys show numerous vertical cysts bilaterally. The largest cyst measures 8 cm. No retroperitoneal adenopathy. There are multiple large bowel diverticula. These are more concentrated in the sigmoid colon. There i s fat stranding around the proximal sigmoid colon. The bladder distends smoothly. No inguinal hernia. No free fluid in the pelvis. No pelvic mass. Appendix not well seen. No sign of thickened appendix. No ascites. There is small amount of fluid in the left paracolic gutter. No free air. No sign of a edilberto wel obstruction. There is multilevel lumbar spondylotic changes. There is spinal stenosis at L3-4 L4-5. No compression fracture. The bony pelvis is intact. The hip joints are intact. IMPRESSION: There is evidence of proximal sigmoid diverticulitis with wall thickening and fat stranding and fluid in the paracolic gutter. No drainable fluid collection. Inflammatory changes are slightly improved c ompared to last exam. Extensive colonic diverticulosis. Lumbar bony spinal stenosis. Bilateral pleural effusions and basilar pulmonary infiltrates and atelectasis. Relate to congestive h eart failure and is mostly new compared to last exam.
[2022-12-29] MEDS ORDERED: NALOXONE 0.4 MG/ML 1 ML VIAL IV PRN (04:07)
[2022-12-29] MEDS ORDERED: PANTOPRAZOLE 40 MG/10 ML VIAL IVP STA (04:10)
[2022-12-29] MEDS ORDERED: AMPICILLIN-SULBACTAM 3 GM in SODIUM CHLORIDE 0.9% 100 ML IVPB STA (04:12)
[2022-12-29] MEDS: SODIUM CHLORIDE 0.9% 1,000 ML IV SCH ×3 (04:31→20:21)
[2022-12-29] MEDS ORDERED: ONDANSETRON 4 MG/2 ML VIAL IVP PRN (06:20)
[2022-12-29 06:22] LABS: Glucose,Whole Blood 162 mg/dL (70-110)
[2022-12-29 07:10] LABS: Glucose,Whole Blood 161 mg/dL (70-110)
[2022-12-29] MEDS ORDERED: ALBUTEROL NEBULIZED 2.5 MG/3 ML INHALATION PRN (10:46)
--- NOTE | 2022-12-29 11:14 | P.GSCN ---
History of Present Illness Consult date: 12/29/22 Reason for Consult: GI bleed, diverticulitis History of present illness: Is an 87-year-old female who was recently admitted hospital. Patient had a recent admission for diverticulitis. Patient states that she noticed rectal bleeding at home. Repeat CAT scan shows evidence of diverticulitis. Her hemoglobin is 11.5. Past Medical History Past Medical History: Asthma, COPD, CVA/TIA, Diabetes Mellitus, GERD/Reflux, Hypertension Additional Past Medical History / Comment(s): glaucoma, arthritis History of Any Multi-Drug Resistant Organisms: None Reported Past Surgical History: Back Surgery, Section, Hysterectomy, Orthopedic Surgery Additional Past Surgical History / Comment(s): pituitary tumor removed, lumbar laminectomy Past Anesthesia/Blood Transfusion Reactions: No Reported Reaction Past Psychological History: No Psychological Hx Reported Smoking Status: Former smoker Past Alcohol Use History: None Reported Past Drug Use History: None Reported - Past Family History Father History Unknown: Yes Mother History Unknown: Yes Medications and Allergies Home Medications Medication Instructions Recorded Confirmed Type Apixaban [Eliquis] 2.5 mg PO BID 12/23/20 12/29/22 History Brimonidine Tartrate [Alphagan P 1 drops BOTH EYES TID 12/23/20 12/29/22 History 0.1% Ophth Soln] carvediloL [Coreg] 3.125 mg PO BID 12/23/20 12/29/22 History Levothyroxine Sodium [Synthroid] 25 mcg PO DAILY 10/16/22 12/29/22 History Rivastigmine Tartrate [Exelon] 3 mg PO BID 10/16/22 12/29/22 History Spironolactone [Aldactone] 50 mg PO DAILY 10/16/22 12/29/22 History traMADol HCL 50 mg PO BID 10/16/22 12/29/22 History Albuterol Sulfate [Proair Hfa] 2 puff INHALATION RT-Q4H PRN 12/18/22 12/29/22 History Aspirin EC [Ecotrin Low Dose] 81 mg PO DAILY 12/18/22 12/29/22 History Dorzolamide-Timol 2.23%/0.68% 1 drop LEFT EYE BID 12/18/22 12/29/22 History [Cosopt] Fluticasone/Umeclidin/Vilanter 1 puff INHALATION RT-DAILY 12/18/22 12/29/22 History [Trelegy Ellipta 200-62.5-25] Meclizine [Antivert] 25 mg PO TID PRN 12/18/22 12/29/22 History traMADol HCL 50 mg PO Q6H PRN 12/18/22 12/29/22 History traZODone HCL [Desyrel] 50 mg PO HS 12/18/22 12/29/22 History Docusate [Colace] 100 mg PO BID PRN #30 cap 12/24/22 12/29/22 Rx Lactulose [Cephulac] 10 gm PO DAILY PRN #300 ml 12/24/22 12/29/22 Rx cefUROXime axetiL [Ceftin] 500 mg PO BID 4 Days #8 tab 12/24/22 12/29/22 Rx metroNIDAZOLE [Flagyl] 500 mg PO TID 4 Days #12 tab 12/24/22 12/29/22 Rx Allergies Allergy/AdvReac Type Severity Reaction Status Date / Time Influenza Virus Vaccines Allergy Unknown Verified 12/29/22 10:34 Iodinated Contrast Media Allergy Unknown Verified 12/29/22 10:34 Sulfa (Sulfonamide Allergy Unknown Verified 12/29/22 10:34 Antibiotics) Surgical - Exam Vital Signs Pulse Resp BP Pulse Ox 91 18 164/94 97 12/29/22 01:18 12/29/22 01:18 12/29/22 01:18 12/29/22 01:18 - General well developed, well nourished, no distress - Eyes PERRL - ENT normal pinna - Neck no masses - Respiratory normal expansion - Abdomen Mild left lower quadrant Abdomen: soft Results - Labs 12/29/22 01:57 12/29/22 01:57 Abnormal Lab Results - Last 24 Hours (Table) 12/29/22 12/29/22 12/29/22 Range/Units 01:57 06:21 07:00 POC Glucose (mg/dL) 162 H 161 H (70-110) mg/dL Calcium 8.2 L (8.4-10.2) mg/dL Diabetes panel 12/29/22 Range/Units 01:57 Sodium 140 (137-145) mmol/L Potassium 4.0 (3.5-5.1) mmol/L Chloride 105 (98-107) mmol/L Carbon Dioxide 24 (22-30) mmol/L BUN 10 (7-17) mg/dL Creatinine 0.95 (0.52-1.04) mg/dL Glucose 99 (74-99) mg/dL Calcium 8.2 L (8.4-10.2) mg/dL Calcium panel 12/29/22 Range/Units 01:57 Calcium 8.2 L (8.4-10.2) mg/dL Pituitary panel 12/29/22 Range/Units 01:57 Sodium 140 (137-145) mmol/L Potassium 4.0 (3.5-5.1) mmol/L Chloride 105 (98-107) mmol/L Carbon Dioxide 24 (22-30) mmol/L BUN 10 (7-17) mg/dL Creatinine 0.95 (0.52-1.04) mg/dL Glucose 99 (74-99) mg/dL Calcium 8.2 L (8.4-10.2) mg/dL Adrenal panel 12/29/22 Range/Units 01:57 Sodium 140 (137-145) mmol/L Potassium 4.0 (3.5-5.1) mmol/L Chloride 105 (98-107) mmol/L Carbon Dioxide 24 (22-30) mmol/L BUN 10 (7-17) mg/dL Creatinine 0.95 (0.52-1.04) mg/dL Glucose 99 (74-99) mg/dL Calcium 8.2 L (8.4-10.2) mg/dL Assessment and Plan Assessment: Diverticulitis with lower GI bleed. Patient will be observed. If she has continued. She will need a tagged RBC scan.
[2022-12-29 11:21] LABS: Glucose,Whole Blood 171 mg/dL (70-110)
[2022-12-29 12:13] LABS: Basophils % (A) 0 %; Eosinophils # (A) 0.1 k/uL (0-0.7); Eosinophils % (A) 1 %; HCT 29.8 % (34.0-46.0); Lymphocytes # (A) 0.9 k/uL (1.0-4.8); Lymphocytes % (A) 9 %; MCH 29.4 pg (25.0-35.0); MCHC 33.1 g/dL (31.0-37.0); MCV 88.8 fL (80.0-100.0); Mean Platelet Volume 7.7; Monocytes # (A) 0.1 k/uL (0-1.0); Monocytes % (A) 1 %; Neutrophils # (A) 9.2 k/uL (1.3-7.7); Neutrophils % (A) 88 %; Platelet Count 285 k/uL (150-450); RBC 3.35 m/uL (3.80-5.40); RDW 15.2 % (11.5-15.5); WBC 10.4 k/uL (3.8-10.6)
[2022-12-29 12:16] LABS: HGB 9.8 gm/dL (11.4-16.0)
[2022-12-29] MEDS: PANTOPRAZOLE 40 MG/10 ML VIAL IVP SCH ×2 (12:36→20:21)
[2022-12-29 13:10] LABS: HCT 32.6 % (34.0-46.0); HGB 10.3 gm/dL (11.4-16.0); MCHC 31.6 g/dL (31.0-37.0); MCV 88.7 fL (80.0-100.0); Mean Platelet Volume 7.7; Platelet Count 336 k/uL (150-450); RBC 3.67 m/uL (3.80-5.40); RDW 15.2 % (11.5-15.5); WBC 11.5 k/uL (3.8-10.6)
[2022-12-29 14:39] LABS: Band Neutrophils % 1 %; Lymphocytes # (M) 1.27 k/uL (1.0-4.8); Monocytes # (M) 0.12 k/uL (0-1.0); Neutrophils % (M) 87 %; Nucleated Red Blood Cells 0 /100 WBC (0-0); Total Cells Counted 100
[2022-12-29 14:41] LABS: RBC Morphology Normal
[2022-12-29] MEDS: BRIMONIDINE TARTRATE 0.2% DROPS 5 ML BTL BOTH EYES SCH ×2 (16:46→20:26)
[2022-12-29 17:22] LABS: HCT 29.7 % (34.0-46.0); HGB 9.5 gm/dL (11.4-16.0); Hypochromasia Slight; MCV 90.8 fL (80.0-100.0); Mean Platelet Volume 7.9; Platelet Count 288 k/uL (150-450); RBC 3.28 m/uL (3.80-5.40); RDW 15.3 % (11.5-15.5); WBC 13.6 k/uL (3.8-10.6)
--- NOTE | 2022-12-29 18:43 | P.HPIM ---
History of Present Illness H&P Date: 12/29/22 Chief Complaint: Rectal bleed 87-year-old female she takes and a coagulation medications. She was having a bowel movement just prior to arrival when there was significant amounts of bright blood in the toilet. Patient complaining of some mild rectal discomfort. She agrees recently admitted for colitis. Patient was brought in by EMS. Denies any fevers. States that she just completed her medication treatment for diverticulitis. She is on anticoagulation medications. Laboratory evaluation is unremarkable. Patient appears stable at the bedside. CT shows persistent diverticulitis. Review of Systems REVIEW OF SYSTEMS: CONSTITUTIONAL: No fever, no malaise, no fatigue. HEENT: No recent visual problems or hearing problems. Denied any sore throat. CARDIOVASCULAR: No chest pain, orthopnea, PND, no palpitations, no syncope. PULMONARY: No shortness of breath, no cough, no hemoptysis. GASTROINTESTINAL: No diarrhea, no nausea, no vomiting, no abdominal pain. NEUROLOGICAL: No headaches, no weakness, no numbness. HEMATOLOGICAL: Denies any bleeding or petechiae. GENITOURINARY: Denies any burning micturition, frequency, or urgency. MUSCULOSKELETAL/RHEUMATOLOGICAL: Denies any joint pain, swelling, or any muscle pain. ENDOCRINE: Denies any polyuria or polydipsia. The rest of the 14-point review of systems is negative. Past Medical History Past Medical History: Asthma, COPD, CVA/TIA, Diabetes Mellitus, GERD/Reflux, Hypertension Additional Past Medical History / Comment(s): glaucoma, arthritis History of Any Multi-Drug Resistant Organisms: None Reported Past Surgical History: Back Surgery, Section, Hysterectomy, Orthopedic Surgery Additional Past Surgical History / Comment(s): pituitary tumor removed, lumbar laminectomy Past Anesthesia/Blood Transfusion Reactions: No Reported Reaction Past Psychological History: No Psychological Hx Reported Smoking Status: Former smoker Past Alcohol Use History: None Reported Past Drug Use History: None Reported - Past Family History Father History Unknown: Yes Mother History Unknown: Yes Medications and Allergies Home Medications Medication Instructions Recorded Confirmed Type Apixaban [Eliquis] 2.5 mg PO BID 12/23/20 12/29/22 History Brimonidine Tartrate [Alphagan P 1 drops BOTH EYES TID 12/23/20 12/29/22 History 0.1% Ophth Soln] carvediloL [Coreg] 3.125 mg PO BID 12/23/20 12/29/22 History Levothyroxine Sodium [Synthroid] 25 mcg PO DAILY 10/16/22 12/29/22 History Rivastigmine Tartrate [Exelon] 3 mg PO BID 10/16/22 12/29/22 History Spironolactone [Aldactone] 50 mg PO DAILY 10/16/22 12/29/22 History traMADol HCL 50 mg PO BID 10/16/22 12/29/22 History Albuterol Sulfate [Proair Hfa] 2 puff INHALATION RT-Q4H PRN 12/18/22 12/29/22 History Aspirin EC [Ecotrin Low Dose] 81 mg PO DAILY 12/18/22 12/29/22 History Dorzolamide-Timol 2.23%/0.68% 1 drop LEFT EYE BID 12/18/22 12/29/22 History [Cosopt] Fluticasone/Umeclidin/Vilanter 1 puff INHALATION RT-DAILY 12/18/22 12/29/22 History [Trelegy Ellipta 200-62.5-25] Meclizine [Antivert] 25 mg PO TID PRN 12/18/22 12/29/22 History traMADol HCL 50 mg PO Q6H PRN 12/18/22 12/29/22 History traZODone HCL [Desyrel] 50 mg PO HS 12/18/22 12/29/22 History Docusate [Colace] 100 mg PO BID PRN #30 cap 12/24/22 12/29/22 Rx Lactulose [Cephulac] 10 gm PO DAILY PRN #300 ml 12/24/22 12/29/22 Rx cefUROXime axetiL [Ceftin] 500 mg PO BID 4 Days #8 tab 12/24/22 12/29/22 Rx metroNIDAZOLE [Flagyl] 500 mg PO TID 4 Days #12 tab 12/24/22 12/29/22 Rx Allergies Allergy/AdvReac Type Severity Reaction Status Date / Time Influenza Virus Vaccines Allergy Unknown Verified 12/29/22 10:34 Iodinated Contrast Media Allergy Unknown Verified 12/29/22 10:34 Sulfa (Sulfonamide Allergy Unknown Verified 12/29/22 10:34 Antibiotics) Physical Exam Vitals: Vital Signs Temp Pulse Pulse Resp BP BP Pulse Ox 12/29/22 07:31 98.2 F 81 18 114/67 91 L 12/29/22 04:58 85 14 140/80 95 12/29/22 01:23 152/73 12/29/22 01:22 97.8 F 82 12/29/22 01:18 91 18 164/94 97 Intake and Output 12/28/22 12/29/22 12/29/22 22:59 06:59 14:59 Other: # Voids 1 # Bowel Movements 1 Weight 84.368 kg PHYSICAL EXAMINATION: GENERAL: The patient is alert and oriented x3, not in any acute distress. Well developed, well nourished. HEENT: Pupils are round and equally reacting to light. EOMI. No scleral icterus. No conjunctival pallor. Normocephalic, atraumatic. No pharyngeal erythema. No thyromegaly. CARDIOVASCULAR: S1 and S2 present. No murmurs, rubs, or gallops. PULMONARY: Chest is clear to auscultation, no wheezing or crackles. ABDOMEN: Soft, nontender, nondistended, normoactive bowel sounds. No palpable organomegaly. MUSCULOSKELETAL: No joint swelling or deformity. EXTREMITIES: No cyanosis, clubbing, or pedal edema. NEUROLOGICAL: Gross neurological examination did not reveal any focal deficits. SKIN: No rashes. Results CBC & Chem 7: 12/29/22 16:48 12/29/22 01:57 Labs: Abnormal Lab Results - Last 24 Hours (Table) 12/29/22 12/29/22 12/29/22 Range/Units 01:57 06:21 07:00 POC Glucose (mg/dL) 162 H 161 H (70-110) mg/dL Calcium 8.2 L (8.4-10.2) mg/dL Thrombosis Risk Factor Assmnt - Choose All That Apply Any of the Below Risk Factors Present?: Yes Each Factor Represents 1 point: Abnormal pulmonary function (COPD), Heart failure (<1month), Obesity (BMI >25) Other Risk Factors: Yes Each Risk Factor Represents 3 Points: Age 75 years or older Other congenital or acquired thrombophilia - If yes, enter type in comment: No Thrombosis Risk Factor Assessment Total Risk Factor Score: 6 Thrombosis Risk Factor Assessment Level: High Risk Assessment and Plan Assessment: 1. Acute GI bleed - Patient was initially admitted to selective care unit but continued to have and was transferred to ICU - We will type crossmatch and hold 2 units of packed RBCs; hemoglobin is currently stable - Patient is currently on Protonix 40 mg IV every 12 hours; monitor H&H every 4 hours and transfuse if hemoglobin is less than 8 - Gen. surgery and GI consulted; patient would probably need packed RBC scan 2. Acute diverticulitis; failing outpatient treatment; patient has been placed on IV Unasyn 3 g every 6 hours - We will monitor CBC, CMP and pro-calcitonin 3. Acute blood loss anemia; hemoglobin is at 9.5 upon admission; remains stable at that level; we will continue to monitor H&H closely and make recommendations accordingly 4. Hypertension; patient takes Coreg 3.125 mg twice a day which will be placed on hold in anticipation of hypotension with ongoing GI bleed 5. Hypothyroidism; levothyroxin 25 MCG daily 6. Diabetes mellitus; monitor Accu-Cheks every is and at bedtime with insulin sliding scale 7. Asthma/COPD; not in exacerbation; we will continue with home inhaler therapy with Trelegy DVT prophylaxis; SCDs only given GI bleed CODE STATUS; full code
[2022-12-29] MEDS: DORZOLAMIDE-TIMOLOL 2.23%/0.68 10ML BTL LEFT EYE SCH (20:26)
[2022-12-29 22:15] LABS: HCT 26.9 % (34.0-46.0); HGB 8.7 gm/dL (11.4-16.0); MCH 28.8 pg (25.0-35.0); MCHC 32.3 g/dL (31.0-37.0); MCV 89.1 fL (80.0-100.0); Mean Platelet Volume 9.4; Platelet Count 286 k/uL (150-450); RBC 3.02 m/uL (3.80-5.40); RDW 15.8 % (11.5-15.5); WBC 14.4 k/uL (3.8-10.6)
[2022-12-30 02:51] LABS: Anisocytosis Slight; HCT 27.4 % (34.0-46.0); HGB 8.9 gm/dL (11.4-16.0); MCH 28.3 pg (25.0-35.0); MCHC 32.7 g/dL (31.0-37.0); MCV 86.7 fL (80.0-100.0); Mean Platelet Volume 10.1; Platelet Count 281 k/uL (150-450); RBC 3.16 m/uL (3.80-5.40); RDW 16.1 % (11.5-15.5); WBC 17.4 k/uL (3.8-10.6)
[2022-12-30] MEDS: SODIUM CHLORIDE 0.9% 1,000 ML IV SCH ×3 (05:43→21:05)
[2022-12-30 05:45] LABS: Glucose,Whole Blood 86 mg/dL (70-110)
[2022-12-30] MEDS: LEVOTHYROXINE 25 MCG TAB PO SCH (06:40)
[2022-12-30 06:58] LABS: HCT 27.1 % (34.0-46.0); HGB 8.8 gm/dL (11.4-16.0); Hypochromasia Slight; MCH 29.3 pg (25.0-35.0); MCHC 32.7 g/dL (31.0-37.0); MCV 89.9 fL (80.0-100.0); Platelet Count 285 k/uL (150-450); RBC 3.01 m/uL (3.80-5.40); RDW 15.6 % (11.5-15.5); WBC 16.9 k/uL (3.8-10.6)
[2022-12-30 07:21] LABS: Reticulocyte % 3.6 % (0.5-2.0)
[2022-12-30 07:51] LABS: Calcium 7.9 mg/dL (8.4-10.2); Potassium 3.7 mmol/L (3.5-5.1)
[2022-12-30] MEDS ORDERED: NON FORMULARY DRUG (Fluticasone/Umeclidin/Vilanter [Trelegy Ellipta 200-62.5-25] 1 EACH Bl INHALATION SCH (08:00)
[2022-12-30] MEDS: IPRATROPIUM 0.5 MG/2.5 ML NEBU INHALATION SCH ×4 (08:15→21:17)
[2022-12-30] MEDS: SYMBICORT 160-4.5 MCG INHALER INHALATION SCH ×2 (08:15→21:13)
[2022-12-30] MEDS ORDERED: Potassium Replacement Protocol 1 EACH MISC MISCELLANE PRN ×2 (08:56→10:54)
[2022-12-30] MEDS: PIPERACILLIN-TAZOBACTAM 3.375 GM in SODIUM CHLORIDE 0.9% 100 ML IVPB SCH ×3 (09:08→23:20)
[2022-12-30] MEDS: PANTOPRAZOLE 40 MG/10 ML VIAL IVP SCH ×2 (09:08→21:01)
[2022-12-30] MEDS: BRIMONIDINE TARTRATE 0.2% DROPS 5 ML BTL BOTH EYES SCH ×3 (09:15→21:00)
[2022-12-30] MEDS: DORZOLAMIDE-TIMOLOL 2.23%/0.68 10ML BTL LEFT EYE SCH ×2 (10:20→21:00)
[2022-12-30] MEDS: POTASSIUM CHLORIDE 10 MEQ in WATER FOR INJECTION 1 100ML.BAG IVPB SCH (10:53)
--- NOTE | 2022-12-30 10:53 | P.CNPUL ---
History of Present Illness Consult date: 12/30/22 Requesting physician: Elma Millard Reason for consult: other Chief complaint: GI bleed. History of present illness: Pulmonary consult dated 12/30/2022. 87-year-old black female with a history of diverticular disease, recent admission for diverticulitis, CVA, and asthma/COPD. The patient was recently seen in the emergency room, with complaints of bleeding from the rectum. She was seen in the emergency room, and admitted to the hospital. She initially was admitted to [address] [place] [address], but because of bright red bleeding, per rectum, the patient was transferred to the intensive care unit yesterday. Currently, she is on room air. She's getting saline at 130 mL an hour. This morning's hemoglobin is 8.8. The patient has not received any blood. The patient has been seen by surgery. In addition, a GI consult has been placed. White count 16.9, hemoglobin 8.8, hematocrit 27.1, with a normal platelet count. Sodium 143, potassium 3.7, chlorides 1:15, CO2 22, anion gap 6, BUN 11, and creatinine 0.92. CT of the abdomen and pelvis shows proximal sigmoid diverticulitis with wall thickening and fat stranding. There is extensive colonic diverticulosis, and lumbar spinal stenosis. Review of Systems REVIEW OF SYSTEMS: CONSTITUTIONAL: [Negative.] NEUROLOGIC: [ Negative.] HEENT: [ Negative.] CARDIAC: [Negative.] PULMONARY: [Negative.] GI: Bright red bleeding per rectum. : [Negative.] RHEUMATOLOGIC: [ Negative.] IMMUNOLOGIC: [ Negative.] ENDOCRINE: [Negative. ] DERMATOLOGIC: [Negative.] Past Medical History Past Medical History: Asthma, COPD, CVA/TIA, Diabetes Mellitus, GERD/Reflux, Hypertension Additional Past Medical History / Comment(s): glaucoma, arthritis History of Any Multi-Drug Resistant Organisms: None Reported Past Surgical History: Back Surgery, Section, Hysterectomy, Orthopedic Surgery Additional Past Surgical History / Comment(s): pituitary tumor removed, lumbar laminectomy Past Anesthesia/Blood Transfusion Reactions: No Reported Reaction Past Psychological History: No Psychological Hx Reported Smoking Status: Former smoker Past Alcohol Use History: None Reported Past Drug Use History: None Reported - Past Family History Father History Unknown: Yes Mother History Unknown: Yes Medications and Allergies Home Medications Medication Instructions Recorded Confirmed Type Apixaban [Eliquis] 2.5 mg PO BID 12/23/20 12/29/22 History Brimonidine Tartrate [Alphagan P 1 drops BOTH EYES TID 12/23/20 12/29/22 History 0.1% Ophth Soln] carvediloL [Coreg] 3.125 mg PO BID 12/23/20 12/29/22 History Levothyroxine Sodium [Synthroid] 25 mcg PO DAILY 10/16/22 12/29/22 History Rivastigmine Tartrate [Exelon] 3 mg PO BID 10/16/22 12/29/22 History Spironolactone [Aldactone] 50 mg PO DAILY 10/16/22 12/29/22 History traMADol HCL 50 mg PO BID 10/16/22 12/29/22 History Albuterol Sulfate [Proair Hfa] 2 puff INHALATION RT-Q4H PRN 12/18/22 12/29/22 History Aspirin EC [Ecotrin Low Dose] 81 mg PO DAILY 12/18/22 12/29/22 History Dorzolamide-Timol 2.23%/0.68% 1 drop LEFT EYE BID 12/18/22 12/29/22 History [Cosopt] Fluticasone/Umeclidin/Vilanter 1 puff INHALATION RT-DAILY 12/18/22 12/29/22 History [Trelegy Ellipta 200-62.5-25] Meclizine [Antivert] 25 mg PO TID PRN 12/18/22 12/29/22 History traMADol HCL 50 mg PO Q6H PRN 12/18/22 12/29/22 History traZODone HCL [Desyrel] 50 mg PO HS 12/18/22 12/29/22 History Docusate [Colace] 100 mg PO BID PRN #30 cap 12/24/22 12/29/22 Rx Lactulose [Cephulac] 10 gm PO DAILY PRN #300 ml 12/24/22 12/29/22 Rx cefUROXime axetiL [Ceftin] 500 mg PO BID 4 Days #8 tab 12/24/22 12/29/22 Rx metroNIDAZOLE [Flagyl] 500 mg PO TID 4 Days #12 tab 12/24/22 12/29/22 Rx Allergies Allergy/AdvReac Type Severity Reaction Status Date / Time Influenza Virus Vaccines Allergy Unknown Verified 12/29/22 10:34 Iodinated Contrast Media Allergy Unknown Verified 12/29/22 10:34 Sulfa (Sulfonamide Allergy Unknown Verified 12/29/22 10:34 Antibiotics) Physical Exam Osteopathic Statement: *. No significant issues noted on an osteopathic structural exam other than those noted in the History and Physical/Consult. Vitals: Vital Signs Temp Pulse Resp BP Pulse Ox 12/30/22 10:15 97 15 111/61 90 L 12/30/22 09:15 95 17 129/70 94 L 12/30/22 09:00 96 20 123/80 94 L 12/30/22 08:45 96 7 L 123/80 92 L 12/30/22 08:30 99 22 123/80 96 12/30/22 08:25 91 12/30/22 08:16 92 12/30/22 08:15 94 10 L 123/80 94 L 12/30/22 07:00 93 14 131/68 96 12/30/22 06:00 16 130/69 95 12/30/22 05:00 88 12 129/71 91 L 12/30/22 04:00 98.0 F 93 12 135/77 94 L 12/30/22 03:00 92 14 121/65 93 L 12/30/22 02:00 92 15 92 L 12/30/22 01:00 94 16 146/77 95 12/30/22 00:00 98.1 F 92 12 135/73 93 L 12/29/22 23:00 93 14 135/61 91 L 12/29/22 22:00 95 17 132/66 92 L 12/29/22 21:20 92 12/29/22 21:09 90 12/29/22 21:00 95 13 137/67 93 L 12/29/22 20:00 98.0 F 92 14 125/62 90 L 12/29/22 19:00 96 17 128/65 90 L 12/29/22 18:00 89 20 131/69 94 L 12/29/22 17:00 98.0 F 87 16 131/67 93 L 12/29/22 16:00 107 H 17 131/65 92 L 12/29/22 15:00 115 H 21 136/74 91 L 12/29/22 14:00 97 14 133/70 89 L 12/29/22 13:10 97.7 F 98 25 H 137/79 93 L Intake and Output 12/29/22 12/30/22 12/30/22 22:59 06:59 14:59 Intake Total 1040 1040 520 Output Total 350 775 Balance 690 265 520 Intake: IV 1040 1040 520 Sodium Chloride 0.9% 1, 1040 1040 520 000 ml @ 130 mls/hr IV . Q7H42M [facility] Rx#:[id number] Output: Urine 350 775 Other: Voiding Method Bedside Commode Bedside Commode # Voids 1 1 # Bowel Movements 1 1 Weight 96.1 kg No acute distress, oriented 3. Currently on room air. HEENT examination is grossly unremarkable. Mucous membranes are moist. No oral lesions. Neck supple. Full range of motion. No adenopathy thyromegaly or neck vein dis tention. Cardiovascular examination reveals regular rhythm rate. S1-S2 normal. No S3 or S4. No discernible murmur noted. Heart rate 97 bpm. Lungs reveal mostly clear breath sounds. Minimal rhonchi. No wheezes or crackles. Breath sounds equal bilaterally. Room air saturation 94%. Abdomen soft, without tenderness. No masses. Extremities are intact. No cyanosis clubbing or edema. Skin is without rash or lesion. Neurologic examination is brief but nonfocal. Results - Laboratory Findings CBC and BMP: 12/30/22 06:42 12/30/22 06:42 PT/INR, D-dimer PT 11.9 sec (9.0-12.0) 12/29/22 01:57 INR 1.1 (<1.2) 12/29/22 01:57 Abnormal lab findings: Abnormal Labs 12/29/22 12/29/22 12/29/22 01:57 06:21 07:00 WBC RBC Hgb Hct RDW Neutrophils # Neutrophils # (Manual) Lymphocytes # Retic Count Chloride POC Glucose (mg/dL) 162 H 161 H Calcium 8.2 L Crossmatch Blood Bank Comment 12/29/22 12/29/22 12/29/22 10:18 11:19 11:44 WBC RBC 3.35 L Hgb 9.8 L D Hct 29.8 L RDW Neutrophils # 9.2 H Neutrophils # (Manual) Lymphocytes # 0.9 L Retic Count Chloride POC Glucose (mg/dL) 171 H Calcium Crossmatch See Detail Blood Bank Comment Sent to [facility] 12/29/22 12/29/22 12/29/22 12:43 16:48 20:49 WBC 11.5 H 13.6 H 14.4 H RBC 3.67 L 3.28 L 3.02 L Hgb 10.3 L 9.5 L 8.7 L Hct 32.6 L 29.7 L 26.9 L RDW 15.8 H Neutrophils # Neutrophils # (Manual) 10.10 H Lymphocytes # Retic Count Chloride POC Glucose (mg/dL) Calcium Crossmatch Blood Bank Comment 12/30/22 12/30/22 12/30/22 00:50 06:42 06:42 WBC 17.4 H 16.9 H RBC 3.16 L 3.01 L Hgb 8.9 L 8.8 L Hct 27.4 L 27.1 L RDW 16.1 H 15.6 H Neutrophils # Neutrophils # (Manual) Lymphocytes # Retic Count Chloride 115 H POC Glucose (mg/dL) Calcium 7.9 L Crossmatch Blood Bank Comment 12/30/22 06:42 WBC RBC Hgb Hct RDW Neutrophils # Neutrophils # (Manual) Lymphocytes # Retic Count 3.6 H Chloride POC Glucose (mg/dL) Calcium Crossmatch Blood Bank Comment Assessment and Plan Assessment: History of bright red bleeding per rectum, with prior history of same, in a patient with significant colonic diverticular disease, and recent admission for diverticulitis. History of COPD/asthma. History of CVA. History of diabetes mellitus. Gastroesophageal reflux disease. History of hypertension. Plan: Plan dated 12/30/2022. The patient has been seen by surgery. A consultation has been requested, of gastroenterology. The patient is stable in the intensive care unit. This morning's hemoglobin is 8.8. She's not required any blood transfusions. She's not on any pressors. She continues on saline. We will continue to follow. Prognosis is guarded. Labs, x-rays, and medications are reviewed. Time with Patient: Greater than 30
[2022-12-30 11:18] VITALS: BMI 36.3
[2022-12-30] MEDS ORDERED: POTASSIUM CHLORIDE ER 20 MEQ TAB.ER PO SCH (11:30)
[2022-12-30 11:42] LABS: Anisocytosis Slight; HCT 25.8 % (34.0-46.0); HGB 8.4 gm/dL (11.4-16.0); Hypochromasia Slight; MCH 28.9 pg (25.0-35.0); MCHC 32.5 g/dL (31.0-37.0); MCV 89.1 fL (80.0-100.0); Mean Platelet Volume 8.2; Platelet Count 279 k/uL (150-450); RDW 16.1 % (11.5-15.5); WBC 14.2 k/uL (3.8-10.6)
[2022-12-30] MEDS: FERROUS SULFATE 325 MG TAB PO SCH ×2 (13:38→17:45)
--- NOTE | 2022-12-30 13:42 | P.PN ---
Subjective Progress Note Date: 12/30/22 CHIEF COMPLAINT: GI bleed HISTORY OF PRESENT ILLNESS: Patient the ICU for GI bleed. Likely due to a dive rticular immediately. Recent admission for diverticulitis. Patient reports that she had been taking antibiotics. She reports restarting her Eliquis on the day after her discharge which was on the 24 of December. Nursing staff reported for bloody bowel movements with clots throughout the day yesterday. Patient has no abdominal pain. Denies any nausea or vomiting. Has had no further bleeding. She's required no blood transfusions. Hemoglobin is stable at 8.8. WBC is 16.9 plt 285 sodium is 143 creatinine 0.92 PHYSICAL EXAM: VITAL SIGNS: Reviewed. GENERAL: Well-developed in no acute distress. HEENT: No sclera icterus. Extraocular movements grossly intact. Moist buccal mucosa. Head is atraumatic, normocephalic. ABDOMEN: Soft. Nondistended. Nontender. NEUROLOGIC: Alert and oriented. Cranial nerves II through XII grossly intact. ASSESSMENT: 1. Acute GI bleed likely due to diverticular bleed 2. Diverticulitis PLAN: -Continue to monitor for any signs or symptoms of bleeding -Continue monitor hemoglobin -Continue antibiotics -Continue IV fluids -ok for clear liquid diet -Recommend tagged RBC scan if patient has any further bleeding Physician Life Advisor note has been reviewed by physician. Signing provider agrees with the documented findings, assessment, and plan of care. Objective - Vital Signs Vital signs: Vital Signs Temp 98.0 F 12/30/22 04:00 Pulse 97 12/30/22 10:15 Resp 15 12/30/22 10:15 BP 111/61 12/30/22 10:15 Pulse Ox 90 L 12/30/22 10:15 FiO2 Intake & Output 12/29/22 12/30/22 12/30/22 18:59 06:59 18:59 Intake Total 780 1430 520 Output Total 1125 Balance 780 305 520 Weight 96.1 kg 96.1 kg Intake: IV 780 1430 520 Sodium Chloride 0.9% 1, 780 1430 520 000 ml @ 130 mls/hr IV . Q7H42M [facility] Rx#:[id number] Output: Urine 1125 Other: Voiding Method Toilet Bedside Commode # Voids 1 1 # Bowel Movements 1 1 - Labs CBC & Chem 7: 12/30/22 06:42 12/30/22 06:42 Labs: Abnormal Lab Results - Last 24 Hours (Table) 12/29/22 12/29/22 12/29/22 Range/Units 10:18 11:19 11:44 WBC (3.8-10.6) k/uL RBC 3.35 L (3.80-5.40) m/uL Hgb 9.8 L D (11.4-16.0) gm/dL Hct 29.8 L (34.0-46.0) % RDW (11.5-15.5) % Neutrophils # 9.2 H (1.3-7.7) k/uL Neutrophils # (Manual) (1.3-7.7) k/uL Lymphocytes # 0.9 L (1.0-4.8) k/uL Retic Count (0.5-2.0) % Chloride (98-107) mmol/L POC Glucose (mg/dL) 171 H (70-110) mg/dL Calcium (8.4-10.2) mg/dL Crossmatch See Detail Blood Bank Comment Sent to [facility] A 12/29/22 12/29/22 12/29/22 Range/Units 12:43 16:48 20:49 WBC 11.5 H 13.6 H 14.4 H (3.8-10.6) k/uL RBC 3.67 L 3.28 L 3.02 L (3.80-5.40) m/uL Hgb 10.3 L 9.5 L 8.7 L (11.4-16.0) gm/dL Hct 32.6 L 29.7 L 26.9 L (34.0-46.0) % RDW 15.8 H (11.5-15.5) % Neutrophils # (1.3-7.7) k/uL Neutrophils # (Manual) 10.10 H (1.3-7.7) k/uL Lymphocytes # (1.0-4.8) k/uL Retic Count (0.5-2.0) % Chloride (98-107) mmol/L POC Glucose (mg/dL) (70-110) mg/dL Calcium (8.4-10.2) mg/dL Crossmatch Blood Bank Comment 12/30/22 12/30/22 12/30/22 Range/Units 00:50 06:42 06:42 WBC 17.4 H 16.9 H (3.8-10.6) k/uL RBC 3.16 L 3.01 L (3.80-5.40) m/uL Hgb 8.9 L 8.8 L (11.4-16.0) gm/dL Hct 27.4 L 27.1 L (34.0-46.0) % RDW 16.1 H 15.6 H (11.5-15.5) % Neutrophils # (1.3-7.7) k/uL Neutrophils # (Manual) (1.3-7.7) k/uL Lymphocytes # (1.0-4.8) k/uL Retic Count (0.5-2.0) % Chloride 115 H (98-107) mmol/L POC Glucose (mg/dL) (70-110) mg/dL Calcium 7.9 L (8.4-10.2) mg/dL Crossmatch Blood Bank Comment 12/30/22 Range/Units 06:42 WBC (3.8-10.6) k/uL RBC (3.80-5.40) m/uL Hgb (11.4-16.0) gm/dL Hct (34.0-46.0) % RDW (11.5-15.5) % Neutrophils # (1.3-7.7) k/uL Neutrophils # (Manual) (1.3-7.7) k/uL Lymphocytes # (1.0-4.8) k/uL Retic Count 3.6 H (0.5-2.0) % Chloride (98-107) mmol/L POC Glucose (mg/dL) (70-110) mg/dL Calcium (8.4-10.2) mg/dL Crossmatch Blood Bank Comment
--- NOTE | 2022-12-30 14:37 | P.CONS ---
History of Present Illness - Reason for Consult Consult date: 12/30/22 GI Bleed Requesting physician: Cuate Chacon - Chief Complaint Rectal bleeding - History of Present Illness This is a pleasant 87-year-old -Slov[place] female who was just recently hospitalized for diverticulitis, diverticular bleed from 12/18/2022 with discharge on 12/24/2022. Patient states she went home she was feeling better and then Friday night she had a bloody bowel movement. Initially she states it was a small amount but then she went again it was a larger amount. She states her daughter was concerned it was a large amount and that she would pass out so she called EMS and patient was brought to the emergency department for further evaluation. She has a past medical history including CVA, diabetes, hypertension, asthma, and COPD. She does take eliquis for previous stroke. During her last admission she was treated with IV antibiotics and discharged with Ceftin and Flagyl. She had a CT of the abdomen and pelvis with contrast that reported evidence of proximal sigmoid diverticulitis with wall thickening and fat stranding, fluid in the paracolic gutter. No drainable fluid collection. Inflammatory changes are slightly improved compared to last exam. Extensive colonic diverticulosis. Bilateral pleural effusions and basilar pulmonary infiltrates and atelectasis. Correlate to congestive heart failure mostly new compared to last exam. The patient currently denies any abdominal pain, no nausea or vomiting. She states she did have some mild cramping yesterday. Nursing reported 4 bloody bowel movements through the night with clots. Eliquis currently on hold. Patient's initial hemoglobin on admission 11.5 Today's labs WBC 14.2 hemoglobin 10.4 hematocrit 25 platelet count 279,000, sodium 143 potassium 3.7 BUN 11 creatinine 0.9 Review of Systems REVIEW OF SYSTEMS: CARDIOPULMONARY: No chest pain or shortness of breath. Gastrointestinal: No abdominal pain. Patient had some mild cramping yesterday. No nausea or vomiting. No hematemesis, coffee-ground emesis. Upright and dark red blood with clots per rectum. GENITOURINARY: No dysuria or hematuria. MUSCULOSKELETAL: Reports normal range of motion. SKIN: No rashes. No jaundice. ENDOCRINE: No chills, fevers. No excessive weight gain or loss. No polydipsia or polyuria. PSYCHIATRIC: Unremarkable. NEUROLOGY: No change in mental status. Denies dizziness, headache. ENT: Vision unremarkable. CONSTITUTIONAL: No recent weight loss. No fever, chills, night sweats. Past Medical History Past Medical History: Asthma, COPD, CVA/TIA, Diabetes Mellitus, GERD/Reflux, Hypertension Additional Past Medical History / Comment(s): glaucoma, arthritis History of Any Multi-Drug Resistant Organisms: None Reported Past Surgical History: Back Surgery, Section, Hysterectomy, Orthopedic Surgery Additional Past Surgical History / Comment(s): pituitary tumor removed, lumbar laminectomy Past Anesthesia/Blood Transfusion Reactions: No Reported Reaction Past Psychological History: No Psychological Hx Reported Smoking Status: Former smoker Past Alcohol Use History: None Reported Past Drug Use History: None Reported - Past Family History Father History Unknown: Yes Mother History Unknown: Yes Medications and Allergies Home Medications Medication Instructions Recorded Confirmed Type Apixaban [Eliquis] 2.5 mg PO BID 12/23/20 12/29/22 History Brimonidine Tartrate [Alphagan P 1 drops BOTH EYES TID 12/23/20 12/29/22 History 0.1% Ophth Soln] carvediloL [Coreg] 3.125 mg PO BID 12/23/20 12/29/22 History Levothyroxine Sodium [Synthroid] 25 mcg PO DAILY 10/16/22 12/29/22 History Rivastigmine Tartrate [Exelon] 3 mg PO BID 10/16/22 12/29/22 History Spironolactone [Aldactone] 50 mg PO DAILY 10/16/22 12/29/22 History traMADol HCL 50 mg PO BID 10/16/22 12/29/22 History Albuterol Sulfate [Proair Hfa] 2 puff INHALATION RT-Q4H PRN 12/18/22 12/29/22 History Aspirin EC [Ecotrin Low Dose] 81 mg PO DAILY 12/18/22 12/29/22 History Dorzolamide-Timol 2.23%/0.68% 1 drop LEFT EYE BID 12/18/22 12/29/22 History [Cosopt] Fluticasone/Umeclidin/Vilanter 1 puff INHALATION RT-DAILY 12/18/22 12/29/22 History [Trelegy Ellipta 200-62.5-25] Meclizine [Antivert] 25 mg PO TID PRN 12/18/22 12/29/22 History traMADol HCL 50 mg PO Q6H PRN 12/18/22 12/29/22 History traZODone HCL [Desyrel] 50 mg PO HS 12/18/22 12/29/22 History Docusate [Colace] 100 mg PO BID PRN #30 cap 12/24/22 12/29/22 Rx Lactulose [Cephulac] 10 gm PO DAILY PRN #300 ml 12/24/22 12/29/22 Rx cefUROXime axetiL [Ceftin] 500 mg PO BID 4 Days #8 tab 12/24/22 12/29/22 Rx metroNIDAZOLE [Flagyl] 500 mg PO TID 4 Days #12 tab 12/24/22 12/29/22 Rx Allergies Allergy/AdvReac Type Severity Reaction Status Date / Time Influenza Virus Vaccines Allergy Unknown Verified 12/29/22 10:34 Iodinated Contrast Media Allergy Unknown Verified 12/29/22 10:34 Sulfa (Sulfonamide Allergy Unknown Verified 12/29/22 10:34 Antibiotics) Physical Exam Vitals: Vital Signs Temp Pulse Resp BP Pulse Ox 12/30/22 08:25 91 12/30/22 08:16 92 12/30/22 07:00 93 14 131/68 96 12/30/22 06:00 16 130/69 95 12/30/22 05:00 88 12 129/71 91 L 12/30/22 04:00 98.0 F 93 12 135/77 94 L 12/30/22 03:00 92 14 121/65 93 L 12/30/22 02:00 92 15 92 L 12/30/22 01:00 94 16 146/77 95 12/30/22 00:00 98.1 F 92 12 135/73 93 L 12/29/22 23:00 93 14 135/61 91 L 12/29/22 22:00 95 17 132/66 92 L 12/29/22 21:20 92 12/29/22 21:09 90 12/29/22 21:00 95 13 137/67 93 L 12/29/22 20:00 98.0 F 92 14 125/62 90 L 12/29/22 19:00 96 17 128/65 90 L 12/29/22 18:00 89 20 131/69 94 L 12/29/22 17:00 98.0 F 87 16 131/67 93 L 12/29/22 16:00 107 H 17 131/65 92 L 12/29/22 15:00 115 H 21 136/74 91 L 12/29/22 14:00 97 14 133/70 89 L 12/29/22 13:10 97.7 F 98 25 H 137/79 93 L Intake and Output 12/29/22 12/30/22 12/30/22 22:59 06:59 14:59 Intake Total 1040 1040 130 Output Total 350 775 Balance 690 265 130 Intake: IV 1040 1040 130 Sodium Chloride 0.9% 1, 1040 1040 130 000 ml @ 130 mls/hr IV . Q7H42M [facility] Rx#:[id number] Output: Urine 350 775 Other: Voiding Method Bedside Commode Bedside Commode # Voids 1 1 # Bowel Movements 1 1 Weight 96.1 kg General appearance: The patient is alert, oriented, appears in no acute distr ess. HET: Head is normocephalic and atraumatic. Conjunctiva pink. Sclera anicteric. Neck: Supple without lymphadenopathy. Trachea midline. Heart: S1 S2. Regular rate and rhythm. Lungs: Clear to auscultation. Abdomen: Soft, nontender, nondistended with bowel sounds. No guarding or rigidity. Skin: No rashes. No jaundice. Extremities: Normal skin color and turgor. No pedal edema. Neurological: No focal deficits. Alert and oriented x3. Results CBC & Chem 7: 12/30/22 11:27 12/30/22 06:42 Labs: Abnormal Lab Results - Last 24 Hours (Table) 12/29/22 12/29/22 12/29/22 Range/Units 10:18 11:19 11:44 WBC (3.8-10.6) k/uL RBC 3.35 L (3.80-5.40) m/uL Hgb 9.8 L D (11.4-16.0) gm/dL Hct 29.8 L (34.0-46.0) % RDW (11.5-15.5) % Neutrophils # 9.2 H (1.3-7.7) k/uL Neutrophils # (Manual) (1.3-7.7) k/uL Lymphocytes # 0.9 L (1.0-4.8) k/uL Retic Count (0.5-2.0) % Chloride (98-107) mmol/L POC Glucose (mg/dL) 171 H (70-110) mg/dL Calcium (8.4-10.2) mg/dL Crossmatch See Detail Blood Bank Comment Sent to [facility] A 12/29/22 12/29/22 12/29/22 Range/Units 12:43 16:48 20:49 WBC 11.5 H 13.6 H 14.4 H (3.8-10.6) k/uL RBC 3.67 L 3.28 L 3.02 L (3.80-5.40) m/uL Hgb 10.3 L 9.5 L 8.7 L (11.4-16.0) gm/dL Hct 32.6 L 29.7 L 26.9 L (34.0-46.0) % RDW 15.8 H (11.5-15.5) % Neutrophils # (1.3-7.7) k/uL Neutrophils # (Manual) 10.10 H (1.3-7.7) k/uL Lymphocytes # (1.0-4.8) k/uL Retic Count (0.5-2.0) % Chloride (98-107) mmol/L POC Glucose (mg/dL) (70-110) mg/dL Calcium (8.4-10.2) mg/dL Crossmatch Blood Bank Comment 12/30/22 12/30/22 12/30/22 Range/Units 00:50 06:42 06:42 WBC 17.4 H 16.9 H (3.8-10.6) k/uL RBC 3.16 L 3.01 L (3.80-5.40) m/uL Hgb 8.9 L 8.8 L (11.4-16.0) gm/dL Hct 27.4 L 27.1 L (34.0-46.0) % RDW 16.1 H 15.6 H (11.5-15.5) % Neutrophils # (1.3-7.7) k/uL Neutrophils # (Manual) (1.3-7.7) k/uL Lymphocytes # (1.0-4.8) k/uL Retic Count (0.5-2.0) % Chloride 115 H (98-107) mmol/L POC Glucose (mg/dL) (70-110) mg/dL Calcium 7.9 L (8.4-10.2) mg/dL Crossmatch Blood Bank Comment 12/30/22 Range/Units 06:42 WBC (3.8-10.6) k/uL RBC (3.80-5.40) m/uL Hgb (11.4-16.0) gm/dL Hct (34.0-46.0) % RDW (11.5-15.5) % Neutrophils # (1.3-7.7) k/uL Neutrophils # (Manual) (1.3-7.7) k/uL Lymphocytes # (1.0-4.8) k/uL Retic Count 3.6 H (0.5-2.0) % Chloride (98-107) mmol/L POC Glucose (mg/dL) (70-110) mg/dL Calcium (8.4-10.2) mg/dL Crossmatch Blood Bank Comment Comments: Evidence of proximal sigmoid diverticulitis with wall thickening and fat stranding and fluid in the paracolic gutter. No drainable fluid collection. Inflammatory changes are slightly improved compared to last exam. Extensive colonic diverticulosis. Lumbar bony spinal stenosis. Bilateral pleural effusions and basilar pulmonary infiltrates and atelectasis. Related to congestive heart failure and is mostly new compared to last exam. CT scan - abdomen: report reviewed Assessment and Plan (1) GI bleed Narrative/Plan: 87-year-old female who presented by EMS for concerns of lower GI bleed. Patient was recently admitted to the hospital for diverticulitis and discharged on 12/24/2022 and was readmitted late Friday night. CT of the abdomen and pelvis does report proximal sigmoid diverticulitis with wall thickening and fat stranding, fluid in the paracolic gutter with no drainable fluid collection. Patient currently on Unasyn. Likely diverticular bleed which has improved since admission. Hemoglobin stable at 8.4. No plans on endoscopic evaluation at this time. Continue with medical management. Current Visit: Yes Status: Acute Code(s): K92.2 - GASTROINTESTINAL HEMORRH AGE, UNSPECIFIED SNOMED Code(s): 95858622 (2) Diverticulitis Narrative/Plan: Continue antibiotics as ordered Current Visit: No Status: Acute Code(s): K57.92 - DVTRCLI OF INTEST, PART UNSP, W/O PERF OR ABSCESS W/O BLEED SNOMED Code(s): 121143770 Plan: 1. Continue symptomatic and supportive care 2. Patient may have clear liquid diet 3. Daily CBC, transfuse for hemoglobin less than 7 4. Continue antibiotics 5. No plans on endoscopic evaluation at this time 6. Continue with conservative medical management Thank you for this consultation, we will continue to follow. Dr. Danyel Wong I agree with the dictator's note, documented as a scribe by Yuliet Dykes.
--- NOTE | 2022-12-30 21:09 | P.PN ---
Subjective 87-year-old female she takes and a coagulation medications. She was having a bowel movement just prior to arrival when there was significant amounts of bright blood in the toilet. Patient complaining of some mild rectal discomfort. She agrees recently admitted for colitis. Patient was brought in by EMS. Denies any fevers. States that she just completed her medication treatment for diverticulitis. She is on anticoagulation medications. Laboratory evaluation is unremarkable. Patient appears stable at the bedside. CT shows persistent diverticulitis. 12/30/2022 Patient looks comfortable, she is complaining of from bloody bowel movement Y to came to the hospital after she has been discharged 4 days ago. She states that it was large amount of her however she had a small bowel movement this morning and she was not sure varus more blood. She feels little discomfort rather than significant abdominal pain, her discomfort and abdominal tenderness. On the lower abdomen. She has no nausea or vomiting. She has little dyspnea but no cough. We started Zosyn empirically. Also she scoped on IV fluid. Eliquis is on hold. She has elevated RDW going up from 14 up to 15 indicative of iron deficiency anemia ( specific test for LORRAINE )and hence bleeding. Hemoglobin 8.4. Monitor hemoglobin and hematocrit count 2, continue with ferrous sulfate We will do anemia workup Objective - Vital Signs Vital signs: Vital Signs Temp 98.0 F 12/30/22 04:00 Pulse 97 12/30/22 10:15 Resp 15 12/30/22 10:15 BP 111/61 12/30/22 10:15 Pulse Ox 90 L 12/30/22 10:15 FiO2 Intake & Output 12/29/22 12/30/22 12/30/22 18:59 06:59 18:59 Intake Total 780 1430 520 Output Total 1125 Balance 780 305 520 Weight 96.1 kg 96.1 kg Intake: IV 780 1430 520 Sodium Chloride 0.9% 1, 780 1430 520 000 ml @ 130 mls/hr IV . Q7H42M [facility] Rx#:[id number] Output: Urine 1125 Other: Voiding Method Toilet Bedside Commode # Voids 1 1 # Bowel Movements 1 1 - Exam -GENERAL: The patient is alert and oriented x3, not in any acute distress. Obese HEENT: Pupils are round and equally reacting to light. EOMI. No scleral icterus. No conjunctival pallor. Normocephalic, atraumatic. No pharyngeal erythema. No thyromegaly. CARDIOVASCULAR: S1 and S2 present. No murmurs, rubs, or gallops. PULMONARY: Chest is clear to auscultation, no wheezing or crackles. -ABDOMEN: Soft, mild lower abdominal tenderness, nondistended, normoactive bowel sounds. No palpable organomegaly. MUSCULOSKELETAL: No joint swelling or deformity. EXTREMITIES: No cyanosis, clubbing, or pedal edema. NEUROLOGICAL: Gross neurological examination did not reveal any focal deficits. SKIN: No rashes. no petechiae. - Labs CBC & Chem 7: 12/30/22 11:27 12/30/22 06:42 Labs: Abnormal Lab Results - Last 24 Hours (Table) 12/29/22 12/29/22 12/29/22 Range/Units 10:18 12:43 16:48 WBC 11.5 H 13.6 H (3.8-10.6) k/uL RBC 3.67 L 3.28 L (3.80-5.40) m/uL Hgb 10.3 L 9.5 L (11.4-16.0) gm/dL Hct 32.6 L 29.7 L (34.0-46.0) % RDW (11.5-15.5) % Neutrophils # (Manual) 10.10 H (1.3-7.7) k/uL Retic Count (0.5-2.0) % Chloride (98-107) mmol/L Calcium (8.4-10.2) mg/dL Crossmatch See Detail Blood Bank Comment Sent to [facility] A 12/29/22 12/30/22 12/30/22 Range/Units 20:49 00:50 06:42 WBC 14.4 H 17.4 H 16.9 H (3.8-10.6) k/uL RBC 3.02 L 3.16 L 3.01 L (3.80-5.40) m/uL Hgb 8.7 L 8.9 L 8.8 L (11.4-16.0) gm/dL Hct 26.9 L 27.4 L 27.1 L (34.0-46.0) % RDW 15.8 H 16.1 H 15.6 H (11.5-15.5) % Neutrophils # (Manual) (1.3-7.7) k/uL Retic Count (0.5-2.0) % Chloride (98-107) mmol/L Calcium (8.4-10.2) mg/dL Crossmatch Blood Bank Comment 12/30/22 12/30/22 12/30/22 Range/Units 06:42 06:42 11:27 WBC 14.2 H (3.8-10.6) k/uL RBC 2.90 L (3.80-5.40) m/uL Hgb 8.4 L (11.4-16.0) gm/dL Hct 25.8 L (34.0-46.0) % RDW 16.1 H (11.5-15.5) % Neutrophils # (Manual) (1.3-7.7) k/uL Retic Count 3.6 H (0.5-2.0) % Chloride 115 H (98-107) mmol/L Calcium 7.9 L (8.4-10.2) mg/dL Crossmatch Blood Bank Comment Assessment and Plan Assessment: 1. Acute GI bleed - Patient is currently on Protonix 40 mg IV every 12 hours; monitor H&H every 4 hours and transfuse if hemoglobin is less than 8 - Gen. surgery and GI consulted; patient would probably need packed RBC scan - Eliquis 2. Acute diverticulitis; failing outpatient treatment; patient has been placed on IV Zosyn. Patient has evidence of leukocytosis as well - We will monitor CBC, CMP 3. Acute blood loss anemia; hemoglobin is at 9.5 upon admission; remains stable at that level; we will continue to monitor H&H closely and make recommendations accordingly 4. Hypertension; patient takes Coreg 3.125 mg twice a day which will be placed on hold in anticipation of hypotension with ongoing GI bleed 5. Hypothyroidism; levothyroxin 25 MCG daily 6. Diabetes mellitus; monitor Accu-Cheks every is and at bedtime with insulin sliding scale 7. Asthma/COPD; not in exacerbation; we will continue with home inhaler therapy with Trelegy DVT prophylaxis; SCDs only given GI bleed CODE STATUS; full code
[2022-12-31] MEDS: SODIUM CHLORIDE 0.9% 1,000 ML IV SCH ×2 (04:33→06:37)
[2022-12-31] MEDS: FERROUS SULFATE 325 MG TAB PO SCH ×2 (06:37→17:19)
[2022-12-31] MEDS: LEVOTHYROXINE 25 MCG TAB PO SCH (06:37)
[2022-12-31 06:40] LABS: Glucose,Whole Blood 97 mg/dL (70-110)
[2022-12-31] MEDS: PIPERACILLIN-TAZOBACTAM 3.375 GM in SODIUM CHLORIDE 0.9% 100 ML IVPB SCH (08:12)
[2022-12-31] MEDS: PANTOPRAZOLE 40 MG/10 ML VIAL IVP SCH ×2 (08:12→20:58)
[2022-12-31] MEDS: DORZOLAMIDE-TIMOLOL 2.23%/0.68 10ML BTL LEFT EYE SCH ×2 (08:12→20:57)
[2022-12-31] MEDS: BRIMONIDINE TARTRATE 0.2% DROPS 5 ML BTL BOTH EYES SCH ×3 (08:12→20:57)
[2022-12-31 08:15] LABS: Reticulocyte % 4.8 % (0.5-2.0)
[2022-12-31] MEDS: SYMBICORT 160-4.5 MCG INHALER INHALATION SCH ×2 (08:21→22:10)
[2022-12-31] MEDS: IPRATROPIUM 0.5 MG/2.5 ML NEBU INHALATION SCH ×4 (08:21→22:09)
[2022-12-31 08:24] LABS: Potassium 3.8 mmol/L (3.5-5.1)
[2022-12-31 08:44] LABS: Anisocytosis Slight; HCT 25.9 % (34.0-46.0); HGB 8.5 gm/dL (11.4-16.0); Hypochromasia Slight; MCH 29.6 pg (25.0-35.0); MCHC 32.7 g/dL (31.0-37.0); MCV 90.4 fL (80.0-100.0); Mean Platelet Volume 7.8; Platelet Count 275 k/uL (150-450); RBC 2.87 m/uL (3.80-5.40); WBC 10.8 k/uL (3.8-10.6)
[2022-12-31 10:00] LABS: Eosinophils # (M) 0.54 k/uL (0-0.7); Lymphocytes # (M) 3.24 k/uL (1.0-4.8); Monocytes # (M) 1.08 k/uL (0-1.0); Neutrophils # (M) 5.94 k/uL (1.3-7.7); Neutrophils % (M) 55 %; Nucleated Red Blood Cells 0 /100 WBC (0-0); Total Cells Counted 100
[2022-12-31 12:02] LABS: Glucose,Whole Blood 98 mg/dL (70-110)
--- NOTE | 2022-12-31 12:04 | P.PN ---
Subjective Progress Note Date: 12/31/22 Principal diagnosis: Gastrointestinal bleeding. Pulmonary consult dated 12/30/2022. 87-year-old black female with a history of diverticular disease, recent admission for diverticulitis, CVA, and asthma/COPD. The patient was recently seen in the emergency room, with complaints of bleeding from the rectum. She was seen in the emergency room, and admitted to the hospital. She initially was admitted to [address] [place] [address], but because of bright red bleeding, per rectum, the patient was transferred to the intensive care unit yesterday. Currently, she is on room air. She's getting saline at 130 mL an hour. This morning's hemoglobin is 8.8. The patient has not received any blood. The patient has been seen by surgery. In addition, a GI consult has been placed. White count 16.9, hemoglobin 8.8, hematocrit 27.1, with a normal platelet count. Sodium 143, potassium 3.7, chlorides 1:15, CO2 22, anion gap 6, BUN 11, and creatinine 0.92. CT of the abdomen and pelvis shows proximal sigmoid diverticulitis with wall thickening and fat stranding. There is extensive colonic diverticulosis, and lumbar spinal stenosis. Pulmonary progress note dated 12/31/2022. 87-year-old black female with history of diverticular disease, who was admitted with a diagnosis of possible lower GI bleed. The patient's currently seen in room 259. She's on room air. Her hemoglobin this morning was 8.5. She's getting saline at 130 mL an hour. There is no plans for procedure by gastroenterology. We will discontinue her IV today. We will send her out to the general medical floor. We'll discontinue the Zosyn today. Her pro- calcitonin level was 0.07. White count 10.8, hemoglobin 8.5, hematocrit 25.9, and platelet count 275,000. Sodium 142, potassium 3.8, chlorides 114, CO2 23, BUN 8, and creatinine 0.99. Objective - Vital Signs Vital signs: Vital Signs Temp 98.0 F 12/31/22 08:00 Pulse 81 12/31/22 09:00 Resp 13 12/31/22 09:00 BP 133/66 12/31/22 09:00 Pulse Ox 94 L 12/31/22 09:00 FiO2 Intake & Output 12/30/22 12/31/22 12/31/22 18:59 06:59 18:59 Intake Total 1350 905 230 Output Total 950 1100 400 Balance 400 -195 -170 Weight 96.1 kg 96.2 kg Intake: IV 1300 880 230 Piperacillin-Tazobactam 3 100 100 .375 gm In Sodium Chloride 0.9% 100 ml @ 25 mls/hr IVPB Q8HR [facility] Rx# :[id number] Sodium Chloride 0.9% 1, 1300 780 130 000 ml @ 130 mls/hr IV . Q7H42M [facility] Rx#:[id number] Intake, IV Titration 50 25 Amount Piperacillin-Tazobactam 3 50 25 .375 gm In Sodium Chloride 0.9% 100 ml @ 25 mls/hr IVPB Q8HR [facility] Rx# :[id number] Output: Urine 950 1100 400 Other: Voiding Method Bedside Commode Bedside Commode Bedside Commode # Voids 1 1 1 # Bowel Movements 1 1 1 - Exam No acute distress, oriented 3. Currently on room air. HEENT examination is grossly unremarkable. Mucous membranes are moist. No oral lesions. Neck supple. Full range of motion. No adenopathy thyromegaly or neck vein distention. Cardiovascular examination reveals regular rhythm rate. S1-S2 normal. No S3 or S4. No discernible murmur noted. Heart rate 81 bpm. Lungs reveal mostly clear breath sounds. Minimal rhonchi. No wheezes or crackles. Breath sounds equal bilaterally. Room air saturation 94%. Abdomen soft, without tenderness. No masses. Extremities are intact. No cyanosis clubbing or edema. Skin is without rash or lesion. Neurologic examination is brief but nonfocal. - Labs CBC & Chem 7: 12/31/22 07:55 12/31/22 07:55 Labs: Abnormal Lab Results - Last 24 Hours (Table) 12/29/22 12/31/22 12/31/22 Range/Units 10:18 07:55 07:55 WBC 10.8 H (3.8-10.6) k/uL RBC 2.87 L (3.80-5.40) m/uL Hgb 8.5 L (11.4-16.0) gm/dL Hct 25.9 L (34.0-46.0) % RDW 16.0 H (11.5-15.5) % Monocytes # (Manual) 1.08 H (0-1.0) k/uL Retic Count (0.5-2.0) % Chloride 114 H (98-107) mmol/L Calcium 8.0 L (8.4-10.2) mg/dL Crossmatch See Detail Blood Bank Comment Sent to [facility] A 12/31/22 Range/Units 07:55 WBC (3.8-10.6) k/uL RBC (3.80-5.40) m/uL Hgb (11.4-16.0) gm/dL Hct (34.0-46.0) % RDW (11.5-15.5) % Monocytes # (Manual) (0-1.0) k/uL Retic Count 4.8 H (0.5-2.0) % Chloride (98-107) mmol/L Calcium (8.4-10.2) mg/dL Crossmatch Blood Bank Comment Assessment and Plan Assessment: History of bright red bleeding per rectum, with prior history of same, in a patient with significant colonic diverticular disease, and recent admission for diverticulitis. History of COPD/asthma. History of CVA. History of diabetes mellitus. Gastroesophageal reflux disease. History of hypertension. Plan: Plan dated 12/30/2022. The patient has been seen by surgery. A consultation has been requested, of gastroenterology. The patient is stable in the intensive care unit. This morning's hemoglobin is 8.8. She's not required any blood transfusions. She's not on any pressors. She continues on saline. We will continue to follow. Prognosis is guarded. Labs, x-rays, and medications are reviewed. Plan dated 12/31/2022. The patient's hemoglobin today was 8.5. The patient's IV will be discontinued. The patient can be transferred to the general medical floor. The patient's pro- calcitonin level was only 0.07. We'll discontinue the Zosyn. No additional recommendations are made. We will continue to follow the patient. Prognosis is thought to be good. Time with Patient: Less than 30
--- NOTE | 2022-12-31 13:19 | P.PN ---
Subjective Progress Note Date: 12/31/22 CHIEF COMPLAINT: GI bleed HISTORY OF PRESENT ILLNESS: Patient the ICU for GI bleed. Likely due to a dive rticular bleed. Recent admission for diverticulitis. Patient denies any abdominal pain. She's had no further bloody bowel movements. She had a brown BM this morning. Hemoglobin stable at 8.5. She is being downgraded out of the ICU. Afebrile. WBC 10.8 Hgb 8.5 platelets 275 signs 142 creatinine 0.9 PHYSICAL EXAM: VITAL SIGNS: Reviewed. GENERAL: Well-developed in no acute distress. HEENT: No sclera icterus. Extraocular movements grossly intact. Moist buccal mucosa. Head is atraumatic, normocephalic. ABDOMEN: Soft. Nondistended. Nontender. NEUROLOGIC: Alert and oriented. Cranial nerves II through XII grossly intact. ASSESSMENT: 1. Acute GI bleed likely due to diverticular bleed. Improving 2. Diverticulitis PLAN: -Advance diet to full liquids -Continue to monitor for any signs or symptoms of bleeding -Continue monitor hemoglobin -Continue antibiotics -Continue to hold [facility] Physician [employer] note has been reviewed by physician. Signing provider agrees with the documented findings, assessment, and plan of care. Objective - Vital Signs Vital signs: Vital Signs Temp 98.0 F 12/31/22 08:00 Pulse 81 12/31/22 09:00 Resp 13 12/31/22 09:00 BP 133/66 12/31/22 09:00 Pulse Ox 94 L 12/31/22 09:00 FiO2 Intake & Output 12/30/22 12/31/22 12/31/22 18:59 06:59 18:59 Intake Total 1350 905 230 Output Total 950 1100 400 Balance 400 -195 -170 Weight 96.1 kg 96.2 kg Intake: IV 1300 880 230 Piperacillin-Tazobactam 3 100 100 .375 gm In Sodium Chloride 0.9% 100 ml @ 25 mls/hr IVPB Q8HR [facility] Rx# :[id number] Sodium Chloride 0.9% 1, 1300 780 130 000 ml @ 130 mls/hr IV . Q7H42M [facility] Rx#:[id number] Intake, IV Titration 50 25 Amount Piperacillin-Tazobactam 3 50 25 .375 gm In Sodium Chloride 0.9% 100 ml @ 25 mls/hr IVPB Q8HR [facility] Rx# :[id number] Output: Urine 950 1100 400 Other: Voiding Method Bedside Commode Bedside Commode Bedside Commode # Voids 1 1 1 # Bowel Movements 1 1 1 - Labs CBC & Chem 7: 12/31/22 07:55 12/31/22 07:55 Labs: Abnormal Lab Results - Last 24 Hours (Table) 12/29/22 12/31/22 12/31/22 Range/Units 10:18 07:55 07:55 WBC 10.8 H (3.8-10.6) k/uL RBC 2.87 L (3.80-5.40) m/uL Hgb 8.5 L (11.4-16.0) gm/dL Hct 25.9 L (34.0-46.0) % RDW 16.0 H (11.5-15.5) % Monocytes # (Manual) 1.08 H (0-1.0) k/uL Retic Count (0.5-2.0) % Chloride 114 H (98-107) mmol/L Calcium 8.0 L (8.4-10.2) mg/dL Crossmatch See Detail Blood Bank Comment Sent to [facility] A 12/31/22 Range/Units 07:55 WBC (3.8-10.6) k/uL RBC (3.80-5.40) m/uL Hgb (11.4-16.0) gm/dL Hct (34.0-46.0) % RDW (11.5-15.5) % Monocytes # (Manual) (0-1.0) k/uL Retic Count 4.8 H (0.5-2.0) % Chloride (98-107) mmol/L Calcium (8.4-10.2) mg/dL Crossmatch Blood Bank Comment
--- NOTE | 2022-12-31 15:20 | P.PN ---
Subjective Progress Note Date: 12/31/22 Principal diagnosis: GI bleed This is a pleasant 87-year-old -[place] female who was just recently hospitalized for diverticulitis, diverticular bleed from 12/18/2022 with discharge on 12/24/2022. Patient states she went home she was feeling better and then Friday night she had a bloody bowel movement. Initially she states it was a small amount but then she went again it was a larger amount. She states her daughter was concerned it was a large amount and that she would pass out so she called EMS and patient was brought to the emergency department for further evaluation. She has a past medical history including CVA, diabetes, hypertension, asthma, and COPD. She does take eliquis for previous stroke. During her last admission she was treated with IV antibiotics and discharged with Ceftin and Flagyl. She had a CT of the abdomen and pelvis with contrast that reported evidence of proximal sigmoid diverticulitis with wall thickening and fat stranding, fluid in the paracolic gutter. No drainable fluid collection. Inflammatory changes are slightly improved compared to last exam. Extensive colonic diverticulosis. Bilateral pleural effusions and basilar pulmonary infiltrates and atelectasis. Correlate to congestive heart failure mostly new compared to last exam. The patient currently denies any abdominal pain, no nausea or vomiting. She states she did have some mild cramping yesterday. Nursing reported 4 bloody bowel movements through the night with clots. Eliquis currently on hold. Patient's initial hemoglobin on admission 11.5 12/31/2022: The patient was seen and examined as a follow-up. Patient remains in the ICU has overflow and was downgraded to medical floor yesterday. Patient had no bowel movements yesterday evening, states that she just had urination. No rectal bleeding. Today she had 2 soft brown bowel movements with no blood. She denies any abdominal pain, nausea or vomiting. Hemoglobin stable at 8.5. Patient is tolerating clear liquid diet. She's been afebrile. WBC 10.8 hemoglobin 8.5 platelet count 275,000 sodium 142 potassium 3.8 BUN 8 creatinine 0.9 Objective - Vital Signs Vital signs: Vital Signs Temp 98.0 F 12/31/22 08:00 Pulse 87 12/31/22 08:00 Resp 14 12/31/22 08:00 BP 129/76 12/31/22 08:00 Pulse Ox 91 L 12/31/22 08:00 FiO2 Intake & Output 12/30/22 12/31/22 12/31/22 18:59 06:59 18:59 Intake Total 1350 905 230 Output Total 950 1100 400 Balance 400 -195 -170 Weight 96.1 kg 96.2 kg Intake: IV 1300 880 230 Piperacillin-Tazobactam 3 100 100 .375 gm In Sodium Chloride 0.9% 100 ml @ 25 mls/hr IVPB Q8HR PAM Rx# :[id number] Sodium Chloride 0.9% 1, 1300 780 130 000 ml @ 130 mls/hr IV . Q7H42M PAM Rx#:[id number] Intake, IV Titration 50 25 Amount Piperacillin-Tazobactam 3 50 25 .375 gm In Sodium Chloride 0.9% 100 ml @ 25 mls/hr IVPB Q8HR PAM Rx# :[id number] Output: Urine 950 1100 400 Other: Voiding Method Bedside Commode Bedside Commode Bedside Commode # Voids 1 1 1 # Bowel Movements 1 1 - Exam General appearance: The patient is alert, oriented, appears in no acute distress. HET: Head is normocephalic and atraumatic. Conjunctiva pink. Sclera anicteric. Neck: Supple without lymphadenopathy. Abdomen: Soft, nontender, nondistended with bowel sounds. No guarding or rigidity. Extremities: Normal skin color and turgor. No pedal edema Skin: No rashes, no jaundice Neurological: No focal deficits. Alert and oriented. - Labs CBC & Chem 7: 12/31/22 07:55 12/31/22 07:55 Labs: Abnormal Lab Results - Last 24 Hours (Table) 12/29/22 12/30/22 12/31/22 Range/Units 10:18 11:27 07:55 WBC 14.2 H 10.8 H (3.8-10.6) k/uL RBC 2.90 L 2.87 L (3.80-5.40) m/uL Hgb 8.4 L 8.5 L (11.4-16.0) gm/dL Hct 25.8 L 25.9 L (34.0-46.0) % RDW 16.1 H 16.0 H (11.5-15.5) % Retic Count (0.5-2.0) % Chloride (98-107) mmol/L Calcium (8.4-10.2) mg/dL Crossmatch See Detail Blood Bank Comment Sent to [facility] A 12/31/22 12/31/22 Range/Units 07:55 07:55 WBC (3.8-10.6) k/uL RBC (3.80-5.40) m/uL Hgb (11.4-16.0) gm/dL Hct (34.0-46.0) % RDW (11.5-15.5) % Retic Count 4.8 H (0.5-2.0) % Chloride 114 H (98-107) mmol/L Calcium 8.0 L (8.4-10.2) mg/dL Crossmatch Blood Bank Comment Assessment and Plan (1) GI bleed Narrative/Plan: 87-year-old female who presented by EMS for concerns of lower GI bleed. Patient was recently admitted to the hospital for diverticulitis and discharged on 12/24/2022 and was readmitted late Friday night. CT of the abdomen and pelvis does report proximal sigmoid diverticulitis with wall thickening and fat stranding, fluid in the paracolic gutter with no drainable fluid collection. Patient currently on Unasyn. Likely diverticular bleed which has improved since admission. Hemoglobin stable at 8.4. No plans on endoscopic evaluation at this time. Continue with medical management. Likely diverticular bleed now resolved. Patient having normal bowel movements with a stable hemoglobin. Patient is afebrile. Advance diet as tolerated. No plans for endoscopic evaluation. Current Visit: Yes Status: Acute Code(s): K92.2 - GASTROINTESTINAL HEMORRHAGE, UNSPECIFIED SNOMED Code(s): 60242396 (2) Diverticulitis Narrative/Plan: Continue antibiotics as ordered Current Visit: No Status: Acute Code(s): K57.92 - DVTRCLI OF INTEST, PART UNSP, W/O PERF OR ABSCESS W/O BLEED SNOMED Code(s): 003535533 Plan: 1. Continue symptomatic and supportive care 2. Increase to full liquid diet, advance to regular in morning 3. Daily CBC, transfuse for hemoglobin less than 7 4. Continue antibiotics 5. No plans on endoscopic evaluation at this time 6. Continue with conservative medical management 7. Patient can continue with use of Dulcolax or MiraLAX daily to help with constipation. Thank you for this consultation, and anticipate discharge tomorrow. Dr. Danyel Wong I agree with the dictator's note, documented as a scribe by Yuliet Dykes.
[2022-12-31 16:03] LABS: % Iron Saturation 54.31 (12.00-45.00)
--- NOTE | 2023-01-01 00:05 | P.PN ---
Subjective 87-year-old female she takes and a coagulation medications. She was having a bowel movement just prior to arrival when there was significant amounts of bright blood in the toilet. Patient complaining of some mild rectal discomfort. She agrees recently admitted for colitis. Patient was brought in by EMS. Denies any fevers. States that she just completed her medication treatment for diverticulitis. She is on anticoagulation medications. Laboratory evaluation is unremarkable. Patient appears stable at the bedside. CT shows persistent diverticulitis. 12/30/2022 Patient looks comfortable, she is complaining of from bloody bowel movement Y to came to the hospital after she has been discharged 4 days ago. She states that it was large amount of her however she had a small bowel movement this morning and she was not sure varus more blood. She feels little discomfort rather than significant abdominal pain, her discomfort and abdominal tenderness. On the lower abdomen. She has no nausea or vomiting. She has little dyspnea but no cough. We started Zosyn empirically. Also she scoped on IV fluid. Eliquis is on hold. She has elevated RDW going up from 14 up to 15 indicative of iron deficiency anemia ( specific test for LORRAINE )and hence bleeding. Hemoglobin 8.4. Monitor hemoglobin and hematocrit count 2, continue with ferrous sulfate We will do anemia workup 12/31/2022 Patient clinically improving with the severe lower abdominal pain and large tenderness, patient is afebrile, leukocytosis improvement however patient still has poor appetite. No significant GI bleed. Workup showed no deficiency in iron. Therefore ferrous sulfate was discontinued. Antibiotics Zosyn and normal saline were already discontinued today, we will keep monitoring patient is clinically and monitor her fever or any other signs while she is off antibiotics. Currently remains on full liquid diet Objective - Vital Signs Vital signs: Vital Signs Temp 98.0 F 12/31/22 13:51 Pulse 93 12/31/22 13:51 Resp 17 12/31/22 13:51 BP 128/64 12/31/22 13:51 Pulse Ox 98 12/31/22 13:51 FiO2 Intake & Output 12/30/22 12/31/22 12/31/22 18:59 06:59 18:59 Intake Total 1350 905 230 Output Total 950 1100 400 Balance 400 -195 -170 Weight 96.1 kg 96.2 kg Intake: IV 1300 880 230 Piperacillin-Tazobactam 3 100 100 .375 gm In Sodium Chloride 0.9% 100 ml @ 25 mls/hr IVPB Q8HR PAM Rx# :[id number] Sodium Chloride 0.9% 1, 1300 780 130 000 ml @ 130 mls/hr IV . Q7H42M PAM Rx#:[id number] Intake, IV Titration 50 25 Amount Piperacillin-Tazobactam 3 50 25 .375 gm In Sodium Chloride 0.9% 100 ml @ 25 mls/hr IVPB Q8HR PAM Rx# :[id number] Output: Urine 950 1100 400 Other: Voiding Method Bedside Commode Bedside Commode Bedside Commode # Voids 1 1 1 # Bowel Movements 1 1 1 - Exam -GENERAL: The patient is alert and oriented x3, not in any acute distress. Obese HEENT: Pupils are round and equally reacting to light. EOMI. No scleral icterus. No conjunctival pallor. Normocephalic, atraumatic. No pharyngeal erythema. No thyromegaly. CARDIOVASCULAR: S1 and S2 present. No murmurs, rubs, or gallops. PULMONARY: Chest is clear to auscultation, no wheezing or crackles. -ABDOMEN: Soft, mild lower abdominal tenderness, nondistended, normoactive bowel sounds. No palpable organomegaly. MUSCULOSKELETAL: No joint swelling or deformity. EXTREMITIES: No cyanosis, clubbing, or pedal edema. NEUROLOGICAL: Gross neurological examination did not reveal any focal deficits. SKIN: No rashes. no petechiae. - Labs CBC & Chem 7: 12/31/22 07:55 12/31/22 07:55 Labs: Abnormal Lab Results - Last 24 Hours (Table) 12/29/22 12/31/22 12/31/22 Range/Units 10:18 07:55 07:55 WBC 10.8 H (3.8-10.6) k/uL RBC 2.87 L (3.80-5.40) m/uL Hgb 8.5 L (11.4-16.0) gm/dL Hct 25.9 L (34.0-46.0) % RDW 16.0 H (11.5-15.5) % Monocytes # (Manual) 1.08 H (0-1.0) k/uL Retic Count (0.5-2.0) % Chloride 114 H (98-107) mmol/L Calcium 8.0 L (8.4-10.2) mg/dL TIBC 204 L (228-460) ug/dL % Saturation 54.31 H (12.00-45.00) Transferrin 146.0 L (204.0-354.0) mg/dL Vitamin B12 1546.0 H (200.0-944.0) pg/mL Crossmatch See Detail Blood Bank Comment Sent to [facility] A 12/31/22 Range/Units 07:55 WBC (3.8-10.6) k/uL RBC (3.80-5.40) m/uL Hgb (11.4-16.0) gm/dL Hct (34.0-46.0) % RDW (11.5-15.5) % Monocytes # (Manual) (0-1.0) k/uL Retic Count 4.8 H (0.5-2.0) % Chloride (98-107) mmol/L Calcium (8.4-10.2) mg/dL TIBC (228-460) ug/dL % Saturation (12.00-45.00) Transferrin (204.0-354.0) mg/dL Vitamin B12 (200.0-944.0) pg/mL Crossmatch Blood Bank Comment Assessment and Plan Assessment: 1. Acute GI bleed - Patient is currently on Protonix 40 mg IV every 12 hours; monitor hemoglobin - Gen. surgery and GI consulted; iron study showing no need for iron therapy which was discontinued - Eliquis is on hold 2. Acute diverticulitis; f - Antibiotics were discontinued, keep monitoring while of antibiotic 3. Acute blood loss anemia; mostly anemia of inflammation 4. Hypertension;patient blood pressure is acceptable currently without blood pressure medication 5. Hypothyroidism; levothyroxin 25 MCG daily 6. Diabetes mellitus; monitor Accu-Cheks every is and at bedtime with insulin sliding scale 7. Asthma/COPD; not in exacerbation; we will continue with home inhaler therapy with Trelegy DVT prophylaxis; SCDs only given GI bleed CODE STATUS; full code
[2023-01-01] MEDS: LEVOTHYROXINE 25 MCG TAB PO SCH (05:54)
[2023-01-01] MEDS: PANTOPRAZOLE 40 MG/10 ML VIAL IVP SCH (08:09)
[2023-01-01] MEDS: DORZOLAMIDE-TIMOLOL 2.23%/0.68 10ML BTL LEFT EYE SCH (08:09)
[2023-01-01] MEDS: BRIMONIDINE TARTRATE 0.2% DROPS 5 ML BTL BOTH EYES SCH (08:09)
[2023-01-01] MEDS: SYMBICORT 160-4.5 MCG INHALER INHALATION SCH (08:58)
[2023-01-01] MEDS: IPRATROPIUM 0.5 MG/2.5 ML NEBU INHALATION SCH ×3 (08:58→16:34)
--- NOTE | 2023-01-01 10:34 | P.PN ---
Subjective Progress Note Date: 01/01/23 Principal diagnosis: GI bleed This is a pleasant 87-year-old -[place] female who was just recently hospitalized for diverticulitis, diverticular bleed from 12/18/2022 with discharge on 12/24/2022. Patient states she went home she was feeling better and then Friday night she had a bloody bowel movement. Initially she states it was a small amount but then she went again it was a larger amount. She states her daughter was concerned it was a large amount and that she would pass out so she called EMS and patient was brought to the emergency department for further evaluation. She has a past medical history including CVA, diabetes, hypertension, asthma, and COPD. She does take eliquis for previous stroke. During her last admission she was treated with IV antibiotics and discharged with Ceftin and Flagyl. She had a CT of the abdomen and pelvis with contrast that reported evidence of proximal sigmoid diverticulitis with wall thickening and fat stranding, fluid in the paracolic gutter. No drainable fluid collection. Inflammatory changes are slightly improved compared to last exam. Extensive colonic diverticulosis. Bilateral pleural effusions and basilar pulmonary infiltrates and atelectasis. Correlate to congestive heart failure mostly new compared to last exam. The patient currently denies any abdominal pain, no nausea or vomiting. She states she did have some mild cramping yesterday. Nursing reported 4 bloody bowel movements through the night with clots. Eliquis currently on hold. Patient's initial hemoglobin on admission 11.5 12/31/2022: The patient was seen and examined as a follow-up. Patient remains in the ICU has overflow and was downgraded to medical floor yesterday. Patient had no bowel movements yesterday evening, states that she just had urination. No rectal bleeding. Today she had 2 soft brown bowel movements with no blood. She denies any abdominal pain, nausea or vomiting. Hemoglobin stable at 8.5. Patient is tolerating clear liquid diet. She's been afebrile. WBC 10.8 hemoglobin 8.5 platelet count 275,000 sodium 142 potassium 3.8 BUN 8 creatinine 0.9 01/01/2023: The patient seen and examined today as a follow-up. She was downgraded to medical floor. She's had no further rectal bleeding or blood in her stool. Yesterday she had 2 soft brown stools. She denies any abdominal pain, cramping, no nausea or vomiting. She is tolerating a regular diet for breakfast. Objective - Vital Signs Vital signs: Vital Signs Temp 98.8 F 01/01/23 08:00 Pulse 92 01/01/23 08:00 Resp 18 01/01/23 08:00 BP 158/79 01/01/23 08:00 Pulse Ox 98 01/01/23 01:30 FiO2 Intake & Output 12/31/22 01/01/23 01/01/23 18:59 06:59 18:59 Intake Total 230 240 Output Total 400 Balance -170 240 Intake: IV 230 Piperacillin-Tazobactam 3 100 .375 gm In Sodium Chloride 0.9% 100 ml @ 25 mls/hr IVPB Q8HR PAM Rx# :[id number] Sodium Chloride 0.9% 1, 130 000 ml @ 130 mls/hr IV . Q7H42M PAM Rx#:[id number] Oral 240 Output: Urine 400 Other: Voiding Method Bedside Commode Bedside Commode # Voids 1 1 # Bowel Movements 1 - Exam General appearance: The patient is alert, oriented, appears in no acute distress. HET: Head is normocephalic and atraumatic. Conjunctiva pink. Sclera anicteric. Neck: Supple without lymphadenopathy. Abdomen: Soft, nontender, nondistended with bowel sounds. No guarding or rigidity. Extremities: Normal skin color and turgor. No pedal edema Skin: No rashes, no jaundice Neurological: No focal deficits. Alert and oriented. - Labs CBC & Chem 7: 12/31/22 07:55 12/31/22 07:55 Labs: Abnormal Lab Results - Last 24 Hours (Table) 12/29/22 12/31/22 12/31/22 Range/Units 10:18 07:55 07:55 WBC 10.8 H (3.8-10.6) k/uL RBC 2.87 L (3.80-5.40) m/uL Hgb 8.5 L (11.4-16.0) gm/dL Hct 25.9 L (34.0-46.0) % RDW 16.0 H (11.5-15.5) % Monocytes # (Manual) 1.08 H (0-1.0) k/uL TIBC 204 L (228-460) ug/dL % Saturation 54.31 H (12.00-45.00) Transferrin 146.0 L (204.0-354.0) mg/dL Vitamin B12 1546.0 H (200.0-944.0) pg/mL Folate (4.40-31.00) ng/mL Crossmatch See Detail 12/31/22 Range/Units 07:55 WBC (3.8-10.6) k/uL RBC (3.80-5.40) m/uL Hgb (11.4-16.0) gm/dL Hct (34.0-46.0) % RDW (11.5-15.5) % Monocytes # (Manual) (0-1.0) k/uL TIBC (228-460) ug/dL % Saturation (12.00-45.00) Transferrin (204.0-354.0) mg/dL Vitamin B12 (200.0-944.0) pg/mL Folate 34.90 H (4.40-31.00) ng/mL Crossmatch Assessment and Plan (1) GI bleed Narrative/Plan: 87-year-old female who presented by EMS for concerns of lower GI bleed. Patient was recently admitted to the hospital for diverticulitis and discharged on 12/24/2022 and was readmitted late Friday night. CT of the abdomen and pelvis does report proximal sigmoid diverticulitis with wall thickening and fat stranding, fluid in the paracolic gutter with no drainable fluid collection. Patient currently on Unasyn. Likely diverticular bleed which has improved since admission. Hemoglobin stable at 8.4. No plans on endoscopic evaluation at this time. Continue with medical management. Likely diverticular bleed now resolved. Patient having normal bowel movements with a stable hemoglobin. Patient is afebrile. Advance diet as tolerated. No plans for endoscopic evaluation. Current Visit: Yes Status: Acute Code(s): K92.2 - GASTROINTESTINAL HEMOR RHAGE, UNSPECIFIED SNOMED Code(s): 46149573 (2) Diverticulitis Narrative/Plan: Continue home antibiotics Current Visit: No Status: Acute Code(s): K57.92 - DVTRCLI OF INTEST, PART UNSP, W/O PERF OR ABSCESS W/O BLEED SNOMED Code(s): 651331512 Plan: 1. Continue symptomatic and supportive care 2. Regular diet 3. May resume Eliquis 4. Finish home antibiotics from previous admission 5. No plans on endoscopic evaluation at this time 6. Patient can continue with use of Dulcolax or MiraLAX daily to help with constipation 7. Patient is cleared for discharge from gastroenterology. Follow-up in 3-4 weeks. Thank you for this consultation, we will sign off at this time. Dr. Danyel Wong I agree with the dictator's note, documented as a scribe by Yuliet Dykes.
--- NOTE | 2023-01-01 11:59 | P.PN ---
Subjective Progress Note Date: 01/01/23 87-year-old black female with a history of diverticular disease, recent admission for diverticulitis, CVA, and asthma/COPD. The patient was recently seen in the emergency room, with complaints of bleeding from the rectum. She was seen in the emergency room, and admitted to the hospital. She initially was admitted to [address] [place] [address], but because of bright red bleeding, per rectum, the patient was transferred to the intensive care unit yesterday. Currently, she is on room air. She's getting saline at 130 mL an hour. This morning's hemoglobin is 8.8. The patient has not received any blood. The patient has been seen by surgery. In addition, a GI consult has been placed. White count 16.9, hemoglobin 8.8, hematocrit 27.1, with a normal platelet count. Sodium 143, potassium 3.7, chlorides 1:15, CO2 22, anion gap 6, BUN 11, and creatinine 0.92. CT of the abdomen and pelvis shows proximal sigmoid diverticulitis with wall thickening and fat stranding. There is extensive colonic diverticulosis, and lumbar spinal stenosis. Pulmonary progress note dated 12/31/2022. 87-year-old black female with history of diverticular disease, who was admitted with a diagnosis of possible lower GI bleed. The patient's currently seen in room 259. She's on room air. Her hemoglobin this morning was 8.5. She's getting saline at 130 mL an hour. There is no plans for procedure by gastroenterology. We will discontinue her IV today. We will send her out to the general medical floor. We'll discontinue the Zosyn today. Her pro- calcitonin level was 0.07. White count 10.8, hemoglobin 8.5, hematocrit 25.9, and platelet count 275,000. Sodium 142, potassium 3.8, chlorides 114, CO2 23, BUN 8, and creatinine 0.99. The patient is seen today 01/01/2023 in follow-up on the regular medical floor. She is currently resting comfortably in bed. Awake and alert in no acute distress. Continue good O2 saturations in the 90s on room air. No IV fluids. No recurrent GI bleeding. No new labs today. Most recent hemoglobin 8.5. Cleared to resume Eliquis per GI services. No plans for endoscopy at this time. Objective - Vital Signs Vital signs: Vital Signs Temp 98.8 F 01/01/23 08:00 Pulse 92 01/01/23 08:00 Resp 18 01/01/23 08:00 BP 158/79 01/01/23 08:00 Pulse Ox 98 01/01/23 01:30 FiO2 Intake & Output 12/31/22 01/01/23 01/01/23 18:59 06:59 18:59 Intake Total 230 240 Output Total 400 Balance -170 240 Intake: IV 230 Piperacillin-Tazobactam 3 100 .375 gm In Sodium Chloride 0.9% 100 ml @ 25 mls/hr IVPB Q8HR PAM Rx# :[id number] Sodium Chloride 0.9% 1, 130 000 ml @ 130 mls/hr IV . Q7H42M PAM Rx#:[id number] Oral 240 Output: Urine 400 Other: Voiding Method Bedside Commode Bedside Commode Toilet # Voids 1 1 # Bowel Movements 1 - Exam GENERAL EXAM: Alert, pleasant 87-year-old female, on room air, comfortable in no apparent distress. HEAD: Normocephalic. EYES: Normal reaction of pupils, equal size. NOSE: Clear with pink turbinates. THROAT: No erythema or exudates. NECK: No masses, no JVD. CHEST: No chest wall deformity. LUNGS: Equal air entry with no crackles, wheeze, rhonchi or dullness. CVS: S1 and S2 normal with no audible murmur, regular rhythm. ABDOMEN: No hepatosplenomegaly, normal bowel sounds, no guarding or rigidity. SPINE: No scoliosis or deformity SKIN: No rashes CENTRAL NERVOUS SYSTEM: No focal deficits, tone is normal in all 4 extremities. EXTREMITIES: There is no peripheral edema. No clubbing, no cyanosis. Peripher al pulses are intact. - Labs CBC & Chem 7: 12/31/22 07:55 12/31/22 07:55 Labs: Abnormal Lab Results - Last 24 Hours (Table) 12/29/22 12/31/22 12/31/22 Range/Units 10:18 07:55 07:55 TIBC 204 L (228-460) ug/dL % Saturation 54.31 H (12.00-45.00) Transferrin 146.0 L (204.0-354.0) mg/dL Vitamin B12 1546.0 H (200.0-944.0) pg/mL Folate 34.90 H (4.40-31.00) ng/mL Crossmatch See Detail Assessment and Plan Assessment: History of bright red bleeding per rectum, with prior history of same, in a patient with significant colonic diverticular disease, and recent admission for diverticulitis. History of COPD/asthma. History of CVA. History of diabetes mellitus. Gastroesophageal reflux disease. History of hypertension. Plan: The patient was seen and evaluated Stable and on room air Cleared for discharge from the pulmonary/critical care standpoint I have personally seen and examined the patient, performed the documentation and the assessment and plan as written. Number of minutes spent on the visit: 10.
[2023-01-01 14:17] VITALS: BP 144/65; PULSE 88; RESP 17; TEMP 97.9
--- NOTE | 2023-01-01 14:33 | P.PN ---
Subjective Progress Note Date: 01/01/23 CHIEF COMPLAINT: GI bleed HISTORY OF PRESENT ILLNESS: Patient is admitted to the hospital for GI bleed phi rowell due to a diverticular bleed. Patient has had no further bloody bowel movements. She denies any abdominal pain. She is afebrile. White count 10.8 yesterday. Hgb stable at 8.5. Medicine service has discontinued antibiotics. Patient seen and examined with Dr. mcclain PHYSICAL EXAM: VITAL SIGNS: Reviewed. GENERAL: Well-developed in no acute distress. HEENT: No sclera icterus. Extraocular movements grossly intact. Moist buccal mucosa. Head is atraumatic, normocephalic. ABDOMEN: Soft. Nondistended. Nontender. NEUROLOGIC: Alert and oriented. Cranial nerves II through XII grossly intact. ASSESSMENT: 1. Acute GI bleed likely due to diverticular bleed. Resolved 2. Diverticulitis PLAN: -Patient can be discharged from surgical standpoint -Okay to resume Eliquis -Antibiotics per medicine service Physician Pest Control Applicator note has been reviewed by physician. Signing provider agrees with the documented findings, assessment, and plan of care. Objective - Vital Signs Vital signs: Vital Signs Temp 97.9 F 01/01/23 14:00 Pulse 88 01/01/23 14:00 Resp 17 01/01/23 14:00 BP 144/65 01/01/23 14:00 Pulse Ox 97 01/01/23 14:00 FiO2 Intake & Output 12/31/22 01/01/23 01/01/23 18:59 06:59 18:59 Intake Total 230 240 Output Total 400 Balance -170 240 Intake: IV 230 Piperacillin-Tazobactam 3 100 .375 gm In Sodium Chloride 0.9% 100 ml @ 25 mls/hr IVPB Q8HR PAM Rx# :[id number] Sodium Chloride 0.9% 1, 130 000 ml @ 130 mls/hr IV . Q7H42M PAM Rx#:[id number] Oral 240 Output: Urine 400 Other: Voiding Method Bedside Commode Bedside Commode Toilet # Voids 1 1 # Bowel Movements 1 - Labs CBC & Chem 7: 12/31/22 07:55 12/31/22 07:55 Labs: Abnormal Lab Results - Last 24 Hours (Table) 12/29/22 12/31/22 12/31/22 Range/Units 10:18 07:55 07:55 TIBC 204 L (228-460) ug/dL % Saturation 54.31 H (12.00-45.00) Transferrin 146.0 L (204.0-354.0) mg/dL Vitamin B12 1546.0 H (200.0-944.0) pg/mL Folate 34.90 H (4.40-31.00) ng/mL Crossmatch See Detail Reference Lab Result See [facility] REF Reports A
--- NOTE | 2023-01-01 22:40 | P.DS ---
Providers Date of admission: 12/29/22 04:07 Attending physician: Elma Millard Consults: 12/29/22 04:07 Consult Physician Routine Consulting Provider: Cyrus Sy Consult Reason/Comments: colitis Do you want consulting provider notified?: Yes Consult Physician Routine Consulting Provider: Hope Wong Consult Reason/Comments: GI bleed` Do you want consulting provider notified?: Yes 12/29/22 13:25 Consult Physician Routine Consulting Provider: Lluvia Diaz Consult Reason/Comments: ICU management - GI bleed Do you want consulting provider notified?: Already Contacted Primary care physician: [facility] Course: Diagnoses: 1. Acute GI bleed, resolved, cleared by GI and surgery team with recommendation to resume Eliquis 2. Acute diverticulitis; improved, patient instructed to finish her short course of oral antibiotics less from last time recommendation consulting us and she agrees 3. anemia of inflammation, hemoglobin stable 4. Hypertension; stable 5. Hypothyroidism; stable, patient declined to check TSH 6. Diabetes mellitus; 7. 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 Computed tomography scan of the abdomen showing extensive diverticulosis of possible diverticulitis and she was treated with IV antibiotic which was worst oral antibiotics upon discharge. Also she was monitored over several days no further bleeding. Hemoglobin is stable, RN the study showing no iron deficiency anemia which goes against GI bleed, it shows any male chronic disease or anemia of inflammation, hemoglobin is stable around 8. Patient's tolerance that well, no other complaints, she is awake and alert and can make medical decisions. She denies chest pain or dyspnea. No ureter complaints and no fever. Patient was cleared for discharge by all consultants including GI and surgery team Eliquis is cleared to be resumed by both GI and surgery team, I had extensive discussion with the patient about risks benefits and alternatives including but not limited to the risk of bleeding and she verbalized understanding and wish and to continue with her Eliquis as indicated. Also patient instructed both verbally and in written about instructions to monitor any signs of bleeding or degeneration, see discharge instructions Problems and management plan were discussed with the patient and he verbalized understanding and acceptance Patient was found stable and can be discharged home in guarded prognosis however he needs follow-up as an outpatient. Patient was instructed to follow up with PCP Dr. mayen within one week and patient agrees Patient instructed to follow up with Dr. Wong from GI in 1-[address] Ferraro at from surgery in 1-2 weeks and she agrees to make Her own appointment Physical exam Gen: patient is a AAOx3, no distress CVS: S1-S2, RRR, no murmur Lungs: B/L CTA, no wheezing Abdomen: soft, no distention, no tenderness, positive bowel sounds Extremity: no leg edema or induration Time spent more than 35 minutes Patient Condition at Discharge: Serious Plan - Discharge Summary Discharge Rx Participant: No New Discharge Prescriptions: New Omeprazole [PriLOSEC] 20 mg PO BID #60 cap Continue Apixaban [Eliquis] 2.5 mg PO BID carvediloL [Coreg] 3.125 mg PO BID Brimonidine Tartrate [Alphagan P 0.1% Oph Soln] 1 drops BOTH EYES TID Spironolactone [Aldactone] 50 mg PO DAILY Levothyroxine Sodium [Synthroid] 25 mcg PO DAILY Albuterol Sulfate [Proair Hfa] 2 puff INHALATION RT-Q4H PRN PRN Reason: Shortness Of Breath Fluticasone/Umeclidin/Vilanter [Trelegy Ellipta 200-62.5-25] 1 puff INHALATION RT-DAILY Docusate [Colace] 100 mg PO BID PRN #30 cap PRN Reason: Constipation Lactulose [Cephulac] 10 gm PO DAILY PRN #300 ml PRN Reason: Constipation Meclizine [Antivert] 25 mg PO TID PRN PRN Reason: DIZZINESS Aspirin EC [Ecotrin Low Dose] 81 mg PO DAILY Dorzolamide-Timol 2.23%/0.68% [Cosopt] 1 drop LEFT EYE BID Changed cefUROXime axetiL [Ceftin] 250 mg PO BID 4 Days #4 tab metroNIDAZOLE [Flagyl] 500 mg PO BID 4 Days #8 tab Discontinued Rivastigmine Tartrate [Exelon] 3 mg PO BID traZODone HCL [Desyrel] 50 mg PO HS traMADol HCL 50 mg PO BID traMADol HCL 50 mg PO Q6H PRN PRN Reason: Pain Discharge Medication List Apixaban [Eliquis] 2.5 mg PO BID 12/23/20 [History] Brimonidine Tartrate [Alphagan P 0.1% Ophth Soln] 1 drops BOTH EYES TID 12/23/20 [History] carvediloL [Coreg] 3.125 mg PO BID 12/23/20 [History] Levothyroxine Sodium [Synthroid] 25 mcg PO DAILY 10/16/22 [History] Spironolactone [Aldactone] 50 mg PO DAILY 10/16/22 [History] Albuterol Sulfate [Proair Hfa] 2 puff INHALATION RT-Q4H PRN 12/18/22 [History] Aspirin EC [Ecotrin Low Dose] 81 mg PO DAILY 12/18/22 [History] Dorzolamide-Timol 2.23%/0.68% [Cosopt] 1 drop LEFT EYE BID 12/18/22 [History] Fluticasone/Umeclidin/Vilanter [Trelegy Ellipta 200-62.5-25] 1 puff INHALATION RT-DAILY 12/18/22 [History] Meclizine [Antivert] 25 mg PO TID PRN 12/18/22 [History] Docusate [Colace] 100 mg PO BID PRN #30 cap 12/24/22 [Rx] Lactulose [Cephulac] 10 gm PO DAILY PRN #300 ml 12/24/22 [Rx] Omeprazole [PriLOSEC] 20 mg PO BID #60 cap 01/01/23 [Rx] cefUROXime axetiL [Ceftin] 250 mg PO BID 4 Days #4 tab 01/01/23 [Rx] metroNIDAZOLE [Flagyl] 500 mg PO BID 4 Days #8 tab 01/01/23 [Rx] Follow up Appointment(s)/Referral(s): Lluvia Diaz MD [STAFF PHYSICIAN] - 01/16/23 2:00 pm Dani Salgado MD [Primary Care Provider] - 1-2 days Hope Wong MD [STAFF PHYSICIAN] - 01/28/23 3:00 pm [facility], [NON-STAFF] - 1 Week Cyrus Sy MD [STAFF PHYSICIAN] - 01/10/23 10:30 am Patient Instructions/Handouts: Metronidazole (By mouth), Omeprazole (By mouth), Gastrointestinal Bleeding (DC) Activity/Diet/Wound Care/Special Instructions: heart healthy diet activity is restricted till you see your doctor monitor for signs of bleeding like blood in stool, black colored stool, worsening abdominal pain, nausea and vomiting, dizziness and lightheadedness if you develop any of the above signs and symptoms or any other signs and symptoms then please call 911 and come to emergency room Discharge/Stand Alone Forms: Who Do I Call?, Community Resources, Help In The Home Discharge Disposition: HOME WITH HOME HEALTH SERVICES
== END 2023-01-01 18:39 | disposition home health service (06) | DRG 378 ==
LOC: EC 01:17 → 4SSUR 04:07 → 2SICU 13:12 → 5NMEDONC 12-31 16:44
PROVIDERS: ADMIT Internal Medicine; ATTEND Internal Medicine
DX: K57.33 Diverticulitis of large intestine without perforation or abscess with bleeding (principal); D62 Acute posthemorrhagic anemia; J44.0 Chronic obstructive pulmonary disease with (acute) lower respiratory infection; J98.11 Atelectasis; D50.9 Iron deficiency anemia, unspecified; E03.9 Hypothyroidism, unspecified; E11.9 Type 2 diabetes mellitus without complications; I50.9 Heart failure, unspecified; I11.0 Hypertensive heart disease with heart failure; K21.9 Gastro-esophageal reflux disease without esophagitis; M48.061 Spinal stenosis, lumbar region without neurogenic claudication; Z79.82 Long term (current) use of aspirin; Z79.01 Long term (current) use of anticoagulants; Z79.890 Hormone replacement therapy; Z79.899 Other long term (current) drug therapy; Z86.73 Personal history of transient ischemic attack (TIA), and cerebral infarction without residual deficits; Z87.891 Personal history of nicotine dependence; Z88.2 Allergy status to sulfonamides; Z88.7 Allergy status to serum and vaccine; Z91.041 Radiographic dye allergy status
CPT/HCPCS: 36415; 74177; 80048; 82607; 82728; 82746; 83540; 83550; 83880; 84145; 85025; 85027; 85045; 85610; 85730; 86850; 86870; 86880; 86900; 86901; 86902; 86920; 94640; 96365; 96375; 99285

== ENCOUNTER → 2023-03-07 | Day surgery (SDC) | payer MEDICARE, OTHER ==
[~2023-03-07] MED LIST: LACTATED RINGERS 1,000 ML IV ONE; LACTATED RINGERS 1,000 ML IV SCH; PROPOFOL 10 MG/ML 20 ML VIAL IV ONE
[2023-03-07 09:50] VITALS: RESP 16; TEMP 97.1
--- NOTE | 2023-03-07 10:39 | P.PCN ---
Date of Procedure: 03/07/23 Procedure(s) Performed: BRIEF HISTORY: Patient is a 87-year-old pleasant -[place] female scheduled for an elective colonoscopy as a part of evaluation of recent episode of acute GI bleed. She was hospitalized 2 months ago. PROCEDURE PERFORMED: Colonoscopy. PREOPERATIVE DIAGNOSIS: Recent episode of acute GI bleed. IV sedation per Anesthesia. PROCEDURE: After informed consent was obtained, the patient, was brought into the endoscopy unit. IV sedation was administered by Anesthesia under continuous monitoring. Digital rectal examination was normal. Initially the Olympus CF-160 flexible video colonoscope was then inserted in the rectum, gradually advanced into the cecum without any difficulty. Careful examination was performed as the scope was gradually being withdrawn. Ileocecal valve and the appendiceal orifice were visualized and appeared normal. Prep was fair.. Mucosa of the cecum, ascending colon, transverse colon, descending colon, sigmoid colon, and rectum appeared normal. Diffuse scattered diverticulosis more predominant in the left colon Retroflexion was performed in the rectum and no lesions were seen. The patient tolerated the procedure well. IMPRESSION: Normal-appearing colon from rectum to cecum with no evidence of colorectal neoplasia Diffuse diverticula cyst milligrams of the left colon . RECOMMENDATIONS: Findings of this examination were discussed with the patient as well as a family.. She was advised to be a high-fiber diet and take fiber supplements a regular basis. Recent episode of acute GI bleed was likely diverticular in nature. Advised to resume eliquis today
[2023-03-07 10:48] VITALS: BP 105/68; PULSE 85
== END ==
LOC: ORWHC2ENDO 09:18
PROVIDERS: ATTEND Internal Medicine Gastroenterology
DX: K57.30 Diverticulosis of large intestine without perforation or abscess without bleeding (principal); I10 Essential (primary) hypertension; J45.909 Unspecified asthma, uncomplicated; Z86.73 Personal history of transient ischemic attack (TIA), and cerebral infarction without residual deficits; Z86.018 Personal history of other benign neoplasm; Z91.048 Other nonmedicinal substance allergy status; Z88.2 Allergy status to sulfonamides; Z79.01 Long term (current) use of anticoagulants; Z79.51 Long term (current) use of inhaled steroids; Z79.899 Other long term (current) drug therapy
CPT/HCPCS: 45378; J2704